=== PATIENT | male | born 1965 | race Caucasian/White ===

== ENCOUNTER 2019-07-01 16:10 | Observation (INO) | payer MEDICARE, MEDICAID ==
[~2019-07-01] VITALS: Ht 165.1 cm; Wt 107.6 kg
[2019-07-01 17:52] VITALS: BP 146/90
[2019-07-01] MEDS ORDERED: ACETAMINOPHEN TAB 650MG DOSE (2X325MG) PO PRN (21:00)
--- NOTE | 2019-07-01 21:17 | HPEPDOC ---
General Date of Admission July 01, 2019 Date of Service: Jul 01, 2019 Chief Complaint The patient is a 53-year-old male admitted with a reason for visit of Pancreatis. Source: Patient Exam Limitations: No limitations Timing/Duration: Unsure Severity: Mild Associated Symptoms: Denies Symptoms History of Present Illness This is a 53-year-old male with known chronic kidney disease that is hemodialysis requiring. He presented to an outlying facility complaining of left-sided abdominal pain. It was accompanied by episode of mild nausea. He also had an episode of loose stool. He otherwise reports that his bowel movements have been normal and without any blood. His appetite has otherwise been normal. He rates the pain about a 2-3 out of 10 and states that the pain is at times positional. Upon evaluation in his outlying facility they were concerned that he had pancreatitis with an elevated lipase of 145. CT scan obtained at the [facility] did not show any abnormalities to any organs or any inflammation. We accepted him in transfer for further evaluation. Allergies Coded Allergies: No Known Allergies (Unverified , 03/19/04) Past Medical History Medical History Past medical history is remarkable for rheumatoid arthritis, dyslipidemia, hyp ertension, chronic kidney disease stage V. That is hemodialysis requiring--he is seen by Dr. Ferreira and dialyzes on Mondays, Wednesdays and Fridays. Surgical History Surgical history includes unspecified repair to a fracture of his left arm and placement of a fistula for hemodialysis per Family History Family history is remarkable for unspecified cancer and ilg-lgstxyd-pudurtzdo diabetes mellitus. 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 A-FIB/CHADSVASC A-FIB History Current/History of A-Fib/PAF?: No Current PO Anticoag Therapy: No Review of Systems Other systems 10 systems review is otherwise negative except as stated in the brief presentation Physical Examination General Exam: Positive: Alert, No Acute Distress Eye Exam: Positive: PERRLA, Conjunctiva & lids normal, EOMI, Other Eye Symptoms (the patient wears glasses); Negative: Sclera icteric ENT Exam: Positive: Atraumatic, Mucous membr. moist/pink, Pharynx Normal, Tongue Midline, Nares Patent Neck Exam: Positive: Supple; Negative: JVD, thyromegaly Chest Exam: Positive: Clear to auscultation, Normal air movement Heart Exam: Positive: Rate Normal, Regular Rhythm, Normal S1, Normal S2; Negative: Murmurs, Rubs Abdomen Exam: Positive: Normal bowel sounds, Soft, Other (the patient has moderate central obesity, no focal tenderness is elicited even to deep palpation); Negative: Tenderness, Hepatospenomegaly Extremity Exam: Positive: Normal pulses, Other (the patient has remarkable joint deformity to his fingers and toes consistent with rheumatoid arthritis, CO: He does have ulnar deviation due to his hands and fingers); Negative: Clubbing, Cyanosis, Edema Skin Exam: Positive: Nl turgor and temperature, Other skin issue (the patient does have very poor toenail care and appears to have significant fungal infection to his toes); Negative: Breakdown, Lesion Neuro Exam: Positive: Normal Speech, Strength at 5/5 X4 ext, Normal Tone, Cranial Nerves 3-12 NL Psych Exam: Positive: Mental status NL, Mood NL, Oriented x 3 Vital Signs Vital Signs Date Time Temp Pulse Resp B/P (MAP) Pulse Ox O2 Delivery O2 Flow Rate FiO2 07/01/19 17:52 98.7 65 18 146/90 (108) 97 Assessment/Plan 1. Abdominal pain. This is quite mild. He has not required any interventions such as pain medicatio n. It is essentially resolved. CT scan obtained did not show any focal inflammation in within the abdomen. Patient has no history of diverticular disease. Aside from a slightly elevated lipase there is no evidence that this patient has pancreatitis. We will recheck labs and follow him clinically. 2. Chronic kidney disease stage V. The patient is hemodialysis requiring. We will continue him on his usual hemodialysis schedule. We anticipate we will be able to discharge him to home tomorrow after his hemodialysis. We will appreciate the assistance of the nephrology service. 3. Rheumatoid arthritis. The patient denies any significant pain or disability and he is not on a particular management regimen. The patient is placed on observation status. We have not yet identified an acute medical process and we anticipate being able to discharge this patient to home within less than 2 midnights. Plan / VTE VTE Prophylaxis Ordered?: Yes (subcutaneous) Plan Diet: Continue Current Activity: Continue Current Pt and Family Services: Home Care Diagnostics: Repeat Labs in AM Anticipated Discharge: Home Advanced Directives: Health Care Proxy (HCP) (the patient's father is his medical power of estate planning attorney. Patient is currently full CODE STATUS.) HEBERT HOOD MD Jul 01, 2019 21:17
[2019-07-01] MEDS ORDERED: RENATAB5 PO (21:53)
[2019-07-01] MEDS ORDERED: METO25TA4 PO (21:53)
[2019-07-01] MEDS ORDERED: FLOM0.4C39 PO (21:53)
[2019-07-01] MEDS ORDERED: ZOCO80TA PO (21:59)
[2019-07-01 22:00] VITALS: BP 141/81
[2019-07-01] MEDS ORDERED: LIDO2.5C15 TOP (22:00)
[2019-07-01] MEDS: TAMSULOSIN 0.4 MG CAP PO SCH (22:49)
[2019-07-01] MEDS: METOPROLOL TART 25 MG TABLET PO SCH (22:50)
[2019-07-02 06:00] VITALS: BP 125/50
[2019-07-02 06:06] LABS: HEMATOCRIT 30.5 % (42.0-52.0); HEMOGLOBIN 9.8 g/dl (13.5-17.5); MEAN CORPUSCULAR HEMOGLOBIN 30.3 pg (27.0-33.0); MEAN CORPUSCULAR HGB CONC 32.1 g/dl (32.0-36.5); MEAN CORPUSCULAR VOLUME 94.4 fl (80.0-96.0); RED BLOOD COUNT 3.23 10^6/uL (4.30-6.10); WHITE BLOOD COUNT 5.1 10^3/uL (4.0-10.0)
[2019-07-02 06:07] LABS: PLATELET COUNT, AUTOMATED 96 10^3/uL (150-450)
[2019-07-02] MEDS: METOPROLOL TART 25 MG TABLET PO SCH ×2 (06:16→20:56)
[2019-07-02] MEDS: HEPARIN SOD (PORCINE) 5000 UNITS/ML VIAL SC SCH ×3 (06:16→20:56)
[2019-07-02 06:35] LABS: ALBUMIN 3.2 GM/DL (3.2-5.2); CREATININE FOR GFR 8.12 MG/DL (0.70-1.30); GLOMERULAR FILTRATION RATE 7.4 (>56); POTASSIUM SERUM 4.5 MEQ/L (3.5-5.1); TOTAL PROTEIN 7.8 GM/DL (6.4-8.2)
[2019-07-02] MEDS: SIMVASTATIN 40 MG TAB PO SCH (08:37)
[2019-07-02] MEDS ORDERED: LIDOCAINE 1% SDV 5 ML VIAL SQ ONE (11:00)
[2019-07-02] MEDS ORDERED: HEPARIN 1,000 UNITS/ML 10ML VIAL (FOR RADIOLOGY& DIALYSIS ONLY) IV ONE (12:00)
--- NOTE | 2019-07-02 13:44 | CR ---
DATE OF CONSULTATION: 07/02/2019 NEPHROLOGY CONSULTATION FOR: Iman Stevenson MD REASON FOR CONSULTATION: To assist in the management of end-stage renal disease. HISTORY OF PRESENT ILLNESS: Mr. Qureshi is a 53-year-old gentleman with known history of end-stage renal disease, hypertension, congenital limb deformities and hyperlipidemia. He presented to the emergency room at [facility] with abdominal pain and was noticed to have elevated lipase level. A CAT scan of abdomen and pelvis was reportedly unremarkable. Patient was diagnosed with acute pancreatitis and transferred to [facility]. He is regularly receiving hemodialysis on Friday, Friday and Friday schedule. Patient is due for dialysis today, due to which nephrology consultation was requested and patient is seen this morning. PAST MEDICAL AND SURGICAL HISTORY: Significant for: 1. History of congenital deformities of all four limbs. 2. Chronic degenerative arthritis. 3. History of dyslipidemia. 4. Hypertension. 4. End-stage renal disease. Past surgical history is significant for arteriovenous (AV) fistula creation. PERSONAL AND SOCIAL HISTORY: Patient has no history of smoking, alcohol or drug use. He lives with his family. FAMILY HISTORY: Negative for end-stage renal disease. REVIEW OF SYSTEMS: Patient denies any fever or chills. Ears, nose and throat are unremarkable. He uses corrective eyeglasses for myopia. Cardiovascular system negative for dyspnea or chest pain. Respiratory system negative for cough or hemoptysis. Gastrointestinal (GI) system is significant for abdominal pain but no vomiting or diarrhea. Genitourinary () system is negative for dysuria or hematuria. Musculoskeletal system significant for congenital deformities of all four limbs. Psychosocial system is negative for depression or anxiety. Neurological system negative for seizures or stroke. Hematological system significant for anemia of chronic kidney disease. Endocrine system is negative for diabetes or thyroid problems. Skin is negative for rash or ulcers. PHYSICAL EXAMINATION: Temperature 97.9 degrees Fahrenheit, heart rate 64 per minute and respiratory rate 18 per minute. Blood pressure 125/50 mmHg and oxygen saturation 96% on room air. His head is atraumatic. Neck is supple and jugular venous distention (JVD) difficult to be assessed. Nose and throat are unremarkable. Heart exam reveals distant S1 and S2 which are regular. Lung sound clear to auscultation bilaterally. Abdomen: Soft, obese and minimally tender in left upper quadrant. Bowel sounds are normal. Extremities have no cyanosis or clubbing. Neurologically, he is at his baseline mentation. Musculoskeletal system shows congenital deformities of all four limbs. LABORATORY DATA: His WBC count is 5.1, hemoglobin 9.8 and hematocrit 30.5. Platelets 96,000. Sodium 134, potassium 4.5, CO2 26, BUN 40 and creatinine 8.12. A lipase level is 505. PROBLEMS: 1: End-stage renal disease. Patient is due for dialysis today. His electrolytes are within normal range and volume status is well-compensated. We will plan on dialyzing him this afternoon. 2. Anemia. He does have anemia of chronic kidney disease and at this point there is no emergent indication for a transfusion. We will hold off on use of Aranesp as he probably has just received the treatment in outpatient dialysis clinic. If he stays here for any extended period of time, then I will consider Aranesp. 3. Acute pancreatitis. Most likely idiopathic as patient is not on any medications that could potentially cause acute pancreatitis. Patient has end-stage renal disease and will not require intravenous fluids. I would suggest to manage his pain with analgesics as needed. He should remain on fluid restriction of 1500 mL per day. Thank you for involving me in the care of Mr. Qureshi. I will follow him along with you.
--- NOTE | 2019-07-02 15:56 | IPNPDOC ---
Text Note Date of Service The patient was seen on 07/02/19. NOTE SUBJECTIVE: Mr. Qureshi continues to have little or no abdominal pain. The patient had been transferred from an outlying facility with concerns for acute pancreatitis. The patient did have an elevated lipase, but otherwise unremarkable radiologic studies and no signs of pain on physical exam. He does have a history of end- stage renal disease that is hemodialysis requiring, and is scheduled to undergo hemodialysis today. OBJECTIVE: Please see vital signs below Physical exam: HENT: Neck is supple with no adenopathy or thyromegaly. The patient wears glasses. Cardiovascular: Regular rate and rhythm with a normal S1 and S2, no appreciable murmur. Respiratory: Clear to auscultation with good air movement. Abdomen: Patient does have significant central obesity, I do not elicit any remarkable tenderness to palpation. The patient has bowel tones all 4 quadrants. Extremities: Patient has remarkable joint changes to his hands and feet consistent with rheumatoid arthritis, he does not have joint tenderness or edema. Skin: Patient has an erythematous vesicular rash in a dermatomal distribution to his right flank. It is nontender and it does not itch. ASSESSMENT/PLAN: 1. Pancreatitis. The patient's diagnosis of pancreatitis is subclinical. The patient does not really have remarkable focal abdominal pain of any kind. He is not had any nausea, vomiting or other dietary intolerance. Lipase is elevated at 505, but the clear etiology of this is unclear as he does not have any pancreatic changes on CT. He does not appear to be on any medications that would contribute to pancreatitis. We will continue to monitor him. 2. Chronic kidney disease stage V. The patient is hemodialysis requiring. He will continue on his usual hemodialysis schedule with Dr. Ferreira. 3. Rheumatoid arthritis. The patient does not have significant pain or disability and is not on any disease modifying regimen. 4. Probable shingles. Nursing service had concern for rash to the patient's right flank. The site is dermatomal, erythematous, vesicular and does not cross the midline. This appears to be herpes zoster to the parents. Patient will be placed on a treatment regime n of valacyclovir given his underlying relative immunosuppression with his rheumatoid arthritis. Does not have pain or discomfort associated with this rash such as neuralgia. Hopeful of being able to discharge this patient to home tomorrow. VS,Fishbone, I+O VS, Fishbone, I+O Laboratory Tests 07/02/19 05:53 Red Blood Count 3.23 L, Mean Corpuscular Volume 94.4, Mean Corpuscular Hemoglobin 30.3, Mean Corpuscular Hemoglobin Concent 32.1, Red Cell Distribution Width 14.8 H, Calcium Level 9.0, Aspartate Amino Transf (AST/SGOT) 48 H, Alanine Aminotransferase (ALT/SGPT) 30, Alkaline Phosphatase 126 H, Total Bilirubin 1.0, Total Protein 7.8, Albumin 3.2 Vital Signs Date Time Temp Pulse Resp B/P (MAP) Pulse Ox O2 Delivery O2 Flow Rate FiO2 07/02/19 06:16 64 125/50 07/02/19 06:00 97.9 18 96 I&O- Last 24 Hours up to 6 AM 07/02/19 06:00 Intake Total 360 ml Output Total 300 ml Balance 60 ml HEBERT HOOD MD Jul 02, 2019 15:56
[2019-07-02] MEDS: TAMSULOSIN 0.4 MG CAP PO SCH (20:55)
[2019-07-02] MEDS ORDERED: valACYclovir HCL 500 MG TAB PO SCH (21:00)
[2019-07-02 22:00] VITALS: BP 145/75
[2019-07-03 06:00] VITALS: BP 123/63
[2019-07-03 06:39] LABS: BILIRUBIN,TOTAL 0.6 MG/DL (0.2-1.0); CALCIUM LEVEL 8.3 MG/DL (8.5-10.1); CREATININE FOR GFR 5.63 MG/DL (0.70-1.30); GLOMERULAR FILTRATION RATE 11.3 (>56); POTASSIUM SERUM 3.8 MEQ/L (3.5-5.1); TOTAL PROTEIN 7.6 GM/DL (6.4-8.2)
[2019-07-03] MEDS: HEPARIN SOD (PORCINE) 5000 UNITS/ML VIAL SC SCH ×2 (07:48→14:00)
[2019-07-03] MEDS: SIMVASTATIN 40 MG TAB PO SCH (08:20)
[2019-07-03 08:22] VITALS: BP 123/64
[2019-07-03] MEDS: METOPROLOL TART 25 MG TABLET PO SCH (08:22)
[2019-07-03 13:12] LABS: APPEARANCE, URINE CLEAR (CLEAR); BACTERIA, URINE AUTO NEGATIVE (NEGATIVE); BILIRUBIN, URINE AUTO NEGATIVE (NEGATIVE); BLOOD, URINE BLOOD 1+ (NEGATIVE); COLOR, URINE STRAW (YELLOW); GLUCOSE, URINE (UA) AUTO 1+ mg/dL (NEGATIVE); KETONE, URINE AUTO NEGATIVE (NEGATIVE); LEUKOCYTE ESTERASE, URINE AUTO NEGATIVE (NEGATIVE); NITRITE, URINE AUTO NEGATIVE (NEGATIVE); PROTEIN, URINE AUTO 2+ mg/dL (NEGATIVE); RBC, URINE AUTO 1 /HPF (0-3); SPECIFIC GRAVITY URINE AUTO 1.004 (1.002-1.035); SQUAMOUS EPITHELIAL CELL UR AU 2 /HPF (0-6); UROBILINOGEN, URINE AUTO 0.2 mg/dL (0.0-2.0); WBC, URINE AUTO 2 /HPF (0-3)
[2019-07-03 14:00] VITALS: BP 116/68
[2019-07-03] MEDS ORDERED: VALA500T5 PO (14:02)
[2019-07-03] MEDS ORDERED: DARBEPOETIN 100 MCG/0.5 ML *DIALYSIS* SYRINGE (J0882) IV SCH (14:15)
--- NOTE | 2019-07-03 16:31 | IPN ---
DATE: 07/03/2019 SUBJECTIVE: Patient was seen and examined at the bedside today morning. He was dialyzed yesterday. He tolerated the hemodialysis procedure well. He reports moderate amount of pain in the right-sided shingles rash. Abdominal pain is improving. He is afebrile and hemodynamically stable. He was started on Valcyte tablets last night. OBJECTIVE: VITAL SIGNS: Temperature is 98.7 degrees Fahrenheit, blood pressure 123/64, pulse is 70, respiratory rate of 16, saturating 95% on room air. INTAKE AND OUTPUT: Urine output recorded is 300 mL yesterday. Ultrafiltration with hemodialysis was 1 liter only. Weight in the bed scale is not available. PHYSICAL EXAMINATION: GENERAL: Patient is awake, alert, oriented times three, laying in bed in no apparent distress. HEAD AND NECK EXAM: Extraocular muscles intact. Patient is wearing glasses with very thick lenses. Mucous membranes are moist. Neck is supple. There is no jugular venous distention (JVD). CARDIOVASCULAR: S1, S2. Regular rate. No edema of the bilateral lower extremities. RESPIRATORY: Chest is clear to auscultation bilaterally. Bilateral equal air entry. No rales or rhonchi. ABDOMEN: Soft. Positive bowel sounds. Right-sided flank has shingles rash. MUSCULOSKELETAL: Patient has left forearm arteriovenous (AV) fistula with thrill and bruit and he has congenital deformities of the limbs. CENTRAL NERVOUS SYSTEM (PROTOCOL OFFICER): No focal deficit. He moves all extremities. Patient has very poor vision. PSYCHIATRIC: Normal mood and affect. LABORATORY REVIEW: Complete blood count (CBC) showed a WBC of 5.1, hemoglobin 9.8 and that is from yesterday. Basic metabolic panel (BMP) done today showed sodium 139, potassium 3.8, chloride 102, bicarbonate 31, BUN 23, creatinine is 5.6. Albumin is 3, lipase is 632. CURRENT INPATIENT MEDICATIONS: Patient's medications were all reviewed by me. He has been started on Valtrex 500 mg by mouth daily last night. No other change in the medications today as compared with yesterday. ASSESSMENT AND PLAN: 1. End-stage renal disease on hemodialysis. Patient's dialysis was done yesterday; 1 liter of fluid and was removed. Volume status is optimal. No urgent need of hemodialysis again today. Next dialysis will be done on Friday. 2. Acute pancreatitis. Patient is symptomatically getting better. He is tolerating the oral diet now. No need of IV fluid hydration. Pain is optimized. 3. Right-sided shingles rash. Patient was started on Valtrex 500 mg by mouth daily. Dose is adequate for his renal failure. 4. Hypertension with end-stage renal disease. Continue current dose of metoprolol 25 mg by mouth twice a day. 5. Anemia in end-stage renal disease. Hemoglobin is 9.8, which is slightly suboptimal. I have ordered Aranesp to be given with dialysis. If the patient stays in the hospital until Friday, he will be given Aranesp with next dialysis session.
== END 2019-07-03 16:05 | disposition home or self-care (01) ==
LOC: M MSPAV 20:58
PROVIDERS: ADMIT Internal Medicine; ATTEND Internal Medicine
DX: N18.6 End stage renal disease (principal); K85.90 Acute pancreatitis without necrosis or infection, unspecified; B02.9 Zoster without complications; I12.0 Hypertensive chronic kidney disease with stage 5 chronic kidney disease or end stage renal disease; D63.1 Anemia in chronic kidney disease; E78.49 Other hyperlipidemia; M06.9 Rheumatoid arthritis, unspecified; Z79.899 Other long term (current) drug therapy; Q74.9 Unspecified congenital malformation of limb(s)
CPT/HCPCS: 36415; 80053; 81001; 83690; 83735; 85027; 85049; 85055; 87088; 87186; G0257; G0378

== ENCOUNTER 2020-10-11 13:06 | Emergency (ER) | payer MEDICARE, MEDICAID ==
[~2020-10-11 13:06] MED LIST: FLOM0.4C39 PO; LIDO2.5C15 TOP; METO25TA4 PO; RENATAB5 PO; VALA500T5 PO; ZOCO80TA PO
[2020-10-11 13:56] LABS: BASO # 0.1 10^3/uL (0.0-0.2); BASO % 0.7 % (0.0-1.0); EOS # 0.3 10^3/uL (0.0-0.5); EOS % 4.6 % (0.0-3.0); HEMATOCRIT 33.9 % (42.0-52.0); HEMOGLOBIN 10.8 g/dl (13.5-17.5); LYMPH # 1.4 10^3/uL (1.5-5.0); LYMPH % 20.5 % (24.0-44.0); MEAN CORPUSCULAR HEMOGLOBIN 30.3 pg (27.0-33.0); MEAN CORPUSCULAR HGB CONC 31.9 g/dl (32.0-36.5); MEAN CORPUSCULAR VOLUME 95.2 fl (80.0-96.0); MONO % 14.4 % (0.0-5.0); NEUTROPHILS # 4.1 10^3/uL (1.5-8.5); NEUTROPHILS % 59.2 % (36.0-66.0); PLATELET COUNT, AUTOMATED 129 10^3/uL (150-450); RED BLOOD COUNT 3.56 10^6/uL (4.30-6.10); WHITE BLOOD COUNT 6.9 10^3/uL (4.0-10.0)
[2020-10-11 14:08] LABS: INR 1.03; PROTHROMBIN TIME 13.7 SECONDS (12.5-14.3)
[2020-10-11 14:24] LABS: ALBUMIN 3.8 GM/DL (3.2-5.2); BILIRUBIN,DIRECT 0.1 MG/DL (0.0-0.2); BILIRUBIN,TOTAL 0.4 MG/DL (0.2-1.0); CALCIUM LEVEL 9.3 MG/DL (8.5-10.1); CREATININE FOR GFR 9.39 MG/DL (0.70-1.30); GLOMERULAR FILTRATION RATE 6.2 (>56); POTASSIUM SERUM 5.6 MEQ/L (3.5-5.1); TOTAL PROTEIN 7.4 GM/DL (6.4-8.2)
[2020-10-11 15:15] VITALS: BP 145/73
== END 2020-10-11 15:25 | disposition home or self-care (01) ==
LOC: EDBD 13:06 → M ED 13:06
DX: K62.5 Hemorrhage of anus and rectum (principal); I12.0 Hypertensive chronic kidney disease with stage 5 chronic kidney disease or end stage renal disease; N18.6 End stage renal disease; Z99.2 Dependence on renal dialysis; M19.90 Unspecified osteoarthritis, unspecified site; E78.5 Hyperlipidemia, unspecified; Z79.899 Other long term (current) drug therapy

== ENCOUNTER 2020-10-23 16:26 | Inpatient (IN) | payer MEDICARE, MEDICAID ==
[~2020-10-23] VITALS: Ht 162.6 cm; Wt 105.2 kg
--- OUTSIDE RECORDS SUMMARY | 2020-10-23 16:30 | CCD ---
Author Author [facility] Organization [facility] Address Unknown Phone Unavailable Support Name Relationship Address Phone RE Next Of Kin Unknown Unavailable PRODUCTION [place]LIM[place] [address] CHRISTINE GEORGEAMINATA Next Of Kin [address] [place] [address] EMMA CARLTON Next Of Kin [address] [address] Olinda KENNY Next Of Kin [address] [address] Re-disclosure Warning The records that you are about to access may contain information from federally-assisted alcohol or drug abuse programs. If such information is present, then the following federally mandated warning applies: This information has been disclosed to you from records protected by federal confidentiality rules (42 CFR part 2). The federal rules prohibit you from making any further disclosure of this information unless further disclosure is expressly permitted by the written consent of the person to whom it pertains or as otherwise permitted by 42 CFR part 2. A general authorization for the release of medical or other information is NOT sufficient for this purpose. The Federal rules restrict any use of the information to criminally investigate or prosecute any alcohol or drug abuse patient.The records that you are about to access may contain highly sensitive health information, the redisclosure of which is protected by Article 27-F of the [facility] Public Health law. If you continue you may have access to information: Regarding HIV / AIDS; Provided by facilities licensed or operated by the [facility] Office of Mental Health; or Provided by the [facility] Office for People With Developmental Disabilities. If such information is present, then the following [facility] mandated warning applies: This information has been disclosed to you from confidential records which are protected by state law. State law prohibits you from making any further disclosure of this information without the specific written consent of the person to whom it pertains, or as otherwise permitted by law. Any unauthorized further disclosure in violation of state law may result in a fine or nursing home sentence or both. A general authorization for the release of medical or other information is NOT sufficient authorization for further disc losure. Family History Family Member Name Family Member Gender Family Member Status Date o f Status Description Data Source(s) Unknown Male Problem [facility] ([facility]) Medications Medication Brand Name Start Date Product Form Dose Route Admi nistrative Instructions Pharmacy Instructions Status Indications Reaction Description Data Source(s) 100 mg 10/12/2020 12:00:00 AM EST capsule 180 TAKE ONE CAPSULE BY MOUTH TWICE A DAY TAKE ONE CAPSULE BY MOUTH TWICE A DAY SOLD: 10/12/2020 [facility] 25 mg 10/04/2020 12:00:00 AM EST tablet 60 TAKE ONE TABLET BY MOUTH TWICE A DAY TAKE ONE TABLET BY MOUTH TWICE A DAY SOLD: 10/06/2020 [facility] 0.4 mg 09/06/2020 12:00:00 AM EST capsule 30 TAKE ONE CAPSULE BY MOUTH EVERY DAY AT BEDTIME TAKE ONE CAPSULE BY MOUTH EVERY DAY AT BEDTIME SOLD: 021 [facility] 80 mg 09/06/2020 12:00:00 AM EST tablet 30 TAKE ONE TABLET BY MOUTH EVERY DAY TAKE ONE TABLET BY MOUTH EVERY DAY SOLD: 10/06/2020 [facility] 80 mg 09/06/2020 12:00:00 AM EST tablet 30 TAKE ONE TABLET BY MOUTH EVERY DAY TAKE ONE TABLET BY MOUTH EVERY DAY SOLD: 09/08/2020 [facility] 0.4 mg 09/06/2020 12:00:00 AM EST capsule 30 TAKE ONE CAPSULE BY MOUTH EVERY DAY AT BEDTIME TAKE ONE CAPSULE BY MOUTH EVERY DAY AT BEDTIME SOLD: 020 [facility] 0.8 mg 07/09/2020 12:00:00 AM EDT tablet 30 TAKE ONE TABLET BY MOUTH EVERY DAY TAKE ONE TABLET BY MOUTH EVERY DAY SOLD: 08/11/2020 [facility] 0.8 mg 07/09/2020 12:00:00 AM EDT tablet 30 TAKE ONE TABLET BY MOUTH EVERY DAY TAKE ONE TABLET BY MOUTH EVERY DAY SOLD: 09/08/2020 [facility] 0.8 mg 07/09/2020 12:00:00 AM EDT tablet 30 TAKE ONE TABLET BY MOUTH EVERY DAY TAKE ONE TABLET BY MOUTH EVERY DAY SOLD: 07/11/2020 [facility] 0.8 mg 07/09/2020 12:00:00 AM EDT tablet 30 TAKE ONE TABLET BY MOUTH EVERY DAY TAKE ONE TABLET BY MOUTH EVERY DAY SOLD: 10/06/2020 [facility] 25 mg 04/10/2020 12:00:00 AM EDT tablet 60 TAKE ONE TABLET BY MOUTH TWICE A DAY TAKE ONE TABLET BY MOUTH TWICE A DAY SOLD: 05/13/2020 [facility] 25 mg 04/10/2020 12:00:00 AM EDT tablet 60 TAKE ONE TABLET BY MOUTH TWICE A DAY TAKE ONE TABLET BY MOUTH TWICE A DAY SOLD: 07/11/2020 [facility] 25 mg 04/10/2020 12:00:00 AM EDT tablet 60 TAKE ONE TABLET BY MOUTH TWICE A DAY TAKE ONE TABLET BY MOUTH TWICE A DAY SOLD: 09/08/2020 [facility] 25 mg 04/10/2020 12:00:00 AM EDT tablet 60 TAKE ONE TABLET BY MOUTH TWICE A DAY TAKE ONE TABLET BY MOUTH TWICE A DAY SOLD: 06/12/2020 [facility] 25 mg 04/10/2020 12:00:00 AM EDT tablet 60 TAKE ONE TABLET BY MOUTH TWICE A DAY TAKE ONE TABLET BY MOUTH TWICE A DAY SOLD: 04/13/2020 [facility] 25 mg 04/10/2020 12:00:00 AM EDT tablet 60 TAKE ONE TABLET BY MOUTH TWICE A DAY TAKE ONE TABLET BY MOUTH TWICE A DAY SOLD: 08/11/2020 [facility] 0.4 mg 03/13/2020 12:00:00 AM EDT capsule 90 TAKE ONE CAPSULE BY MOUTH EVERY DAY AT BEDTIME TAKE ONE CAPSULE BY MOUTH EVERY DAY AT BEDTIME SOLD: 020 [facility] 80 mg 03/13/2020 12:00:00 AM EDT tablet 30 TAKE ONE TABLET BY MOUTH EVERY DAY TAKE ONE TABLET BY MOUTH EVERY DAY SOLD: 07/11/2020 [facility] 80 mg 03/13/2020 12:00:00 AM EDT tablet 30 TAKE ONE TABLET BY MOUTH EVERY DAY TAKE ONE TABLET BY MOUTH EVERY DAY SOLD: 08/11/2020 [facility] 0.4 mg 03/13/2020 12:00:00 AM EDT capsule 30 TAKE ONE CAPSULE BY MOUTH EVERY DAY AT BEDTIME TAKE ONE CAPSULE BY MOUTH EVERY DAY AT BEDTIME SOLD: 020 [facility] 0.4 mg 03/13/2020 12:00:00 AM EDT capsule 30 TAKE ONE CAPSULE BY MOUTH EVERY DAY AT BEDTIME TAKE ONE CAPSULE BY MOUTH EVERY DAY AT BEDTIME SOLD: 020 [facility] 80 mg 03/13/2020 12:00:00 AM EDT tablet 90 TAKE ONE TABLET BY MOUTH EVERY DAY TAKE ONE TABLET BY MOUTH EVERY DAY SOLD: 03/15/2020 [facility] 80 mg 03/13/2020 12:00:00 AM EDT tablet 30 TAKE ONE TABLET BY MOUTH EVERY DAY TAKE ONE TABLET BY MOUTH EVERY DAY SOLD: 06/12/2020 [facility] 0.4 mg 03/13/2020 12:00:00 AM EDT capsule 30 TAKE ONE CAPSULE BY MOUTH EVERY DAY AT BEDTIME TAKE ONE CAPSULE BY MOUTH EVERY DAY AT BEDTIME SOLD: 020 [facility] 0.8 mg 01/14/2020 12:00:00 AM EDT tablet 30 TAKE ONE TABLET BY MOUTH EVERY DAY TAKE ONE TABLET BY MOUTH EVERY DAY SOLD: 03/15/2020 [facility] 0.8 mg 01/14/2020 12:00:00 AM EDT tablet 30 TAKE ONE TABLET BY MOUTH EVERY DAY TAKE ONE TABLET BY MOUTH EVERY DAY SOLD: 04/13/2020 [facility] 0.8 mg 01/14/2020 12:00:00 AM EDT tablet 30 TAKE ONE TABLET BY MOUTH EVERY DAY TAKE ONE TABLET BY MOUTH EVERY DAY SOLD: 05/13/2020 [facility] 0.8 mg 01/14/2020 12:00:00 AM EDT tablet 30 TAKE ONE TABLET BY MOUTH EVERY DAY TAKE ONE TABLET BY MOUTH EVERY DAY SOLD: 01/16/2020 [facility] 0.8 mg 01/14/2020 12:00:00 AM EDT tablet 30 TAKE ONE TABLET BY MOUTH EVERY DAY TAKE ONE TABLET BY MOUTH EVERY DAY SOLD: 02/16/2020 [facility] 0.8 mg 01/14/2020 12:00:00 AM EDT tablet 30 TAKE ONE TABLET BY MOUTH EVERY DAY TAKE ONE TABLET BY MOUTH EVERY DAY SOLD: 06/12/2020 [facility] 25 mg 10/18/2019 12:00:00 AM EST tablet 60 TAKE ONE TABLET BY MOUTH TWICE A DAY TAKE ONE TABLET BY MOUTH TWICE A DAY SOLD: 10/19/2019 [facility] 25 mg 10/18/2019 12:00:00 AM EST tablet 60 TAKE ONE TABLET BY MOUTH TWICE A DAY TAKE ONE TABLET BY MOUTH TWICE A DAY SOLD: 03/15/2020 [facility] 25 mg 10/18/2019 12:00:00 AM EST tablet 60 TAKE ONE TABLET BY MOUTH TWICE A DAY TAKE ONE TABLET BY MOUTH TWICE A DAY SOLD: 02/16/2020 [facility] 25 mg 10/18/2019 12:00:00 AM EST tablet 60 TAKE ONE TABLET BY MOUTH TWICE A DAY TAKE ONE TABLET BY MOUTH TWICE A DAY SOLD: 11/21/2019 [facility] 25 mg 10/18/2019 12:00:00 AM EST tablet 60 TAKE ONE TABLET BY MOUTH TWICE A DAY TAKE ONE TABLET BY MOUTH TWICE A DAY SOLD: 01/16/2020 [facility] 25 mg 10/18/2019 12:00:00 AM EST tablet 60 TAKE ONE TABLET BY MOUTH TWICE A DAY TAKE ONE TABLET BY MOUTH TWICE A DAY SOLD: 12/21/2019 [facility] 15-20 gram/60 mL 10/14/2019 12:00:00 AM EST suspension 60 TAKE 60ML BY MOUTH ONCE TAKE 60ML BY MOUTH ONCE SOLD: 10/15/2019 [facility] 80 mg 09/17/2019 12:00:00 AM EST tablet 30 TAKE ONE TABLET BY MOUTH EVERY DAY TAKE ONE TABLET BY MOUTH EVERY DAY SOLD: 10/19/2019 [facility] 0.4 mg 09/17/2019 12:00:00 AM EST capsule 30 TAKE ONE CAPSULE BY MOUTH AT BEDTIME TAKE ONE CAPSULE BY MOUTH AT BEDTIME SOLD: 12/21/2019 [facility] 80 mg 09/17/2019 12:00:00 AM EST tablet 30 TAKE ONE TABLET BY MOUTH EVERY DAY TAKE ONE TABLET BY MOUTH EVERY DAY SOLD: 11/21/2019 [facility] 0.4 mg 09/17/2019 12:00:00 AM EST capsule 30 TAKE ONE CAPSULE BY MOUTH AT BEDTIME TAKE ONE CAPSULE BY MOUTH AT BEDTIME SOLD: 11/21/2019 [facility] 80 mg 09/17/2019 12:00:00 AM EST tablet 30 TAKE ONE TABLET BY MOUTH EVERY DAY TAKE ONE TABLET BY MOUTH EVERY DAY SOLD: 02/16/2020 [facility] 0.4 mg 09/17/2019 12:00:00 AM EST capsule 30 TAKE ONE CAPSULE BY MOUTH AT BEDTIME TAKE ONE CAPSULE BY MOUTH AT BEDTIME SOLD: 09/21/2019 [facility] 0.4 mg 09/17/2019 12:00:00 AM EST capsule 30 TAKE ONE CAPSULE BY MOUTH AT BEDTIME TAKE ONE CAPSULE BY MOUTH AT BEDTIME SOLD: 10/19/2019 [facility] 80 mg 09/17/2019 12:00:00 AM EST tablet 30 TAKE ONE TABLET BY MOUTH EVERY DAY TAKE ONE TABLET BY MOUTH EVERY DAY SOLD: 01/16/2020 [facility] 0.4 mg 09/17/2019 12:00:00 AM EST capsule 30 TAKE ONE CAPSULE BY MOUTH AT BEDTIME TAKE ONE CAPSULE BY MOUTH AT BEDTIME SOLD: 01/16/2020 [facility] 80 mg 09/17/2019 12:00:00 AM EST tablet 30 TAKE ONE TABLET BY MOUTH EVERY DAY TAKE ONE TABLET BY MOUTH EVERY DAY SOLD: 09/21/2019 [facility] 80 mg 09/17/2019 12:00:00 AM EST tablet 30 TAKE ONE TABLET BY MOUTH EVERY DAY TAKE ONE TABLET BY MOUTH EVERY DAY SOLD: 12/21/2019 [facility] 0.4 mg 09/17/2019 12:00:00 AM EST capsule 30 TAKE ONE CAPSULE BY MOUTH AT BEDTIME TAKE ONE CAPSULE BY MOUTH AT BEDTIME SOLD: 02/16/2020 [facility] 0.8 mg 07/20/2019 12:00:00 AM EDT tablet 30 TAKE ONE TABLET BY MOUTH EVERY DAY TAKE ONE TABLET BY MOUTH EVERY DAY SOLD: 12/21/2019 [facility] 0.8 mg 07/20/2019 12:00:00 AM EDT tablet 30 TAKE ONE TABLET BY MOUTH EVERY DAY TAKE ONE TABLET BY MOUTH EVERY DAY SOLD: 10/19/2019 [facility] 0.8 mg 07/20/2019 12:00:00 AM EDT tablet 30 TAKE ONE TABLET BY MOUTH EVERY DAY TAKE ONE TABLET BY MOUTH EVERY DAY SOLD: 11/21/2019 [facility] 0.8 mg 07/20/2019 12:00:00 AM EDT tablet 30 TAKE ONE TABLET BY MOUTH EVERY DAY TAKE ONE TABLET BY MOUTH EVERY DAY SOLD: 09/21/2019 [facility] 25 mg 04/23/2019 12:00:00 AM EDT tablet 60 TAKE ONE TABLET BY MOUTH TWICE A DAY TAKE ONE TABLET BY MOUTH TWICE A DAY SOLD: 09/21/2019 [facility] Insurance Providers Payer name Policy type / Coverage type Policy ID Covered libertarian ID Covered libertarian's relationship to marina Policy Marina Plan Information [employer] [id number] SP [id number] MEDICARE [id number] SP [id number] MEDICAID [id number] SP [id number] MEDICAID - O/P EMERGENCY ROOM [id number] 18 [id number] MEDICARE PART A-O/P [id number] 18 [id number] MEDICARE [id number] SP [id number] A MEDICAID M [id number] S [id number] MEDICARE C [id number] S [id number] A MEDICAID [id number] SP [id number] [place] Medig[place] Part B [id number] Self [id number] Medicare Dme Supplies Medigap Part B [id number] Self [id number] [place] [id number] Self [id number] OTHER B TRANSPLANT Self TRANSPLAN T MEDICAID M [id number] Self [id number] MEDICARE A [id number] Self [id number] A MEDICAID-O/P [id number] MEDICARE -O/P [id number] 18 [id number] [place] 3 [id number] MEDICARE 4 [id number] A SELF PAY 2 UNAVAILABLE 1 UNAVAILA BLE MEDICAID - O/P EMERGENCY ROOM [id number]
[2020-10-23 17:21] LABS: BASO # 0.1 10^3/uL (0.0-0.2); BASO % 0.6 % (0.0-1.0); EOS # 0.4 10^3/uL (0.0-0.5); EOS % 4.7 % (0.0-3.0); HEMATOCRIT 32.7 % (42.0-52.0); HEMOGLOBIN 10.1 g/dl (13.5-17.5); LYMPH # 2.1 10^3/uL (1.5-5.0); LYMPH % 25.2 % (24.0-44.0); MEAN CORPUSCULAR HEMOGLOBIN 28.9 pg (27.0-33.0); MEAN CORPUSCULAR HGB CONC 30.9 g/dl (32.0-36.5); MEAN CORPUSCULAR VOLUME 93.7 fl (80.0-96.0); MONO # 0.9 10^3/uL (0.0-0.8); MONO % 11.4 % (0.0-5.0); NEUTROPHILS # 4.7 10^3/uL (1.5-8.5); NEUTROPHILS % 57.4 % (36.0-66.0); PLATELET COUNT, AUTOMATED 146 10^3/uL (150-450); RED BLOOD COUNT 3.49 10^6/uL (4.30-6.10); WHITE BLOOD COUNT 8.2 10^3/uL (4.0-10.0)
[2020-10-23 17:48] LABS: BLOOD UREA NITROGEN 58 MG/DL (7-18); CALCIUM LEVEL 9.4 MG/DL (8.5-10.1); CARBON DIOXIDE LEVEL 25 MEQ/L (21-32); CHLORIDE LEVEL 101 MEQ/L (98-107); GLOMERULAR FILTRATION RATE 5.5 (>56); GLUCOSE, FASTING 88 MG/DL (70-100); POTASSIUM SERUM 5.3 MEQ/L (3.5-5.1); SODIUM LEVEL 136 MEQ/L (136-145)
--- NOTE | 2020-10-23 17:51 | REPVR ---
PROCEDURE INFORMATION: Exam: CT Abdomen And Pelvis Without Contrast Exam date and time: 10/23/2020 5:10 PM Age: 55 years old Clinical indication: Other: Lower gi bleed; Additional info: Lgi bleed, R/O diverticular TECHNIQUE: Imaging protocol: Computed tomography of the abdomen and pelvis without contrast. Radiation optimization: All CT scans at this facility use at least one of these dose optimization techniques: automated exposure control; mA and/or kV adjustment per patient size (includes targeted exams where dose is matched to clinical indication); or iterative reconstruction. COMPARISON: BLADDER (LIMITED PELVIC) US 12/13/2014 9:00 AM FINDINGS: Lungs: No suspicious mass or airspace process in the visualized lung bases. Liver: Noncontrast liver shows no obvious lesion. Gallbladder and bile ducts: Gallbladder is present and shows no evidence of gallstone. Pancreas: Noncontrast pancreas shows no obvious mass or adjacent fluid. Spleen: Noncontrast spleen shows no obvious focal deformity. Adrenal glands: Adrenal glands are normal in appearance. Kidneys and ureters: Kidneys appear atrophic and contain probable cysts, incompletely imaged. Nonobstructive left renal calculi are also suspected. Stomach and bowel: No evidence of small bowel obstruction. No evidence of acute diverticulitis. Appendix: Normal caliber appendix is identified, with no adjacent inflammation. Intraperitoneal space: No pneumoperitoneum. Vasculature: No aortic aneurysm. Lymph nodes: No enlarged lymph nodes. Urinary bladder: Bladder is decompressed and appears somewhat thick-walled which may be secondary to chronic intermittent bladder outlet obstruction. Reproductive: No overt enlargement of the prostate gland. Bones/joints: Degenerative changes are present in the hips and lumbar spine and old posttraumatic deformities of lower ribs are present. Diffuse idiopathic skeletal hyperostosis changes are present in the thoracolumbar spine with multilevel degenerative spinal canal stenosis. Soft tissues: Fat containing umbilical hernia is present. Midline surgical incision with scarring but no dehiscence or fluid collection. Pelvic muscle atrophy and dystrophic ossification bilaterally, incidental. Other findings: Limited evaluation without enteric or IV contrast. IMPRESSION: 1. No evidence of acute diverticulitis with scattered colonic diverticula noted. 2. Probable chronic bladder wall thickening which may be secondary to intermittent bladder outlet obstruction, given the appearance of the prior ultrasound. 3. Nonobstructive left renal calculi and probable bilateral renal cysts difficult to assess. Outpatient sonography could be performed to confirm that the renal lesions are indeed simple fluid density cysts. COMMENTS: Consistent with the [employer]'s Incidental Findings Committee white paper (J Am Ricardo Radiol 2018): Any incidental renal lesion less than 1 cm or classified as too small to characterize, or any incidental cystic renal lesion characterized as simple-appearing, is likely benign. No follow-up imaging is recommended for these lesions per consensus recommendations based on imaging criteria. Electronically signed by: David Roche On 10/23/2020 17:51:07 PM
--- OUTSIDE RECORDS SUMMARY | 2020-10-23 18:12 | CCD ---
Author Author [facility] Organization [facility] Address Unknown Phone Unavailable Support Name Relationship Address Phone RE Next Of Kin Unknown Unavailable PRODUCTION [place] [address] CHRISTINE GEORGEAMINATA Next Of Kin [address] [place] [address] EMMA CARLTON Next Of Kin [address] [address] Olinda KENNY Next Of Kin [address] [address] Re-disclosure Warning The records that you are [...] by Article 27-F of the [facility] Public Health law. If you continue you may have access to information: Regarding HIV / AIDS; Provided by facilities licensed or operated by the [facility] Office of Mental Health; or Provided by the [facility] Office for People With Developmental Disabilities. If such information is present, then the following [facility] mandated warning applies: This information has [...] BY MOUTH TWICE A DAY SOLD: 02/16/2020 [facility] 25 mg 10/18/2019 12:00:00 AM EST [...] type / Coverage type Policy ID Covered democrat ID Covered democrat's relationship to marina Policy Marina Plan Information [employer]ODY [id number] SP [id number] MEDICARE [id number] SP [id number] MEDICAID [id number] SP [id number] MEDICAID - O/P EMERGENCY ROOM [id number] 18 [id number] MEDICARE PART A-O/P [id number] 18 [id number] MEDICARE [id number] SP [id number] A MEDICAID M [id number] S [id number] MEDICARE C [id number] S [id number] A MEDICAID [id number] SP [id number] [place] Medig[place] Part B [id number] Self [id number] Medicare Dme Supplies Medigap Part B [id number] Self [id number] [place] Primary [id number] Self [id number] OTHER B TRANSPLANT Self TRANSPLAN T MEDICAID M [id number] Self [id number] MEDICARE A [id number] Self [id number] A MEDICAID-O/P [id number] MEDICARE -O/P [id number] 18 [id number] [place] 3 [id number] MEDICARE 4 [id number] A SELF PAY 2 UNAVAILABLE 1 UNAVAILA BLE MEDICAID - O/P EMERGENCY ROOM [id number]
--- NOTE | 2020-10-23 18:42 | REP ---
INDICATION: admission. COMPARISON: None. TECHNIQUE: SINGLE PORTABLE AP VIEW OF THE CHEST WAS PERFORMED. FINDINGS: The heart appears slightly enlarged. There is no acute infiltrate. The mediastinal silhouette is unremarkable. IMPRESSION: NO ACUTE PULMONARY DISEASE. <Electronically signed by Raymundo Falcon > 10/23/20 [id number]
[2020-10-23 19:26] LABS: RSV AMPLIFICATION NEGATIVE (NEGATIVE)
[2020-10-23] MEDS ORDERED: DOK1CAP7 PO (19:27)
--- NOTE | 2020-10-23 19:28 | IPNPDOC ---
Text Note Date of Service The patient was seen on 10/23/20. NOTE Time of service 8:49 PM Mr. Qureshi is a 55 year old with a history of ESRD, obesity, RA and HTN who sent from dialysis after having an episode of hematochezia; he has been having lower GI bleed for about the last 5 months. He denied having abdominal pain, nausea, vomiting, dizziness, chest pain or dyspnea. Unfortunately, his dialysis had to be postponed. He'll be admitted for evaluation & management of #lower GI bleed possibly 2/2 AVMs #acute blood loss anemia #thrombocytopenia Plan: ask RNs to place 2 large bore IVs/ check orthostas/ f/u serial Hg & keep Hg >7 / f/u retic #, iron studies with soluble transferrin receptor (sTfR) which is a more sensitive indicator for iron deficiency, stool occult, LDH, haptoglobin, consult Nephrology and GI. Rest per Dr. Bonds's H&P VS,Fishbone, I+O VS, Lalobone, I+O Laboratory Tests 10/23/20 16:53 Vital Signs Date Time Temp Pulse Resp B/P (MAP) Pulse Ox O2 Delivery O2 Flow Rate FiO2 10/23/20 16:58 97.7 80 17 160/81 (107) 96 Room Air JENNY BALLESTEROS MD Oct 23, 2020 19:28
--- OUTSIDE RECORDS SUMMARY | 2020-10-23 19:34 | CCD ---
Author Author [facility] Organization [facility] Address Unknown Phone Unavailable Support Name Relationship Address Phone RE Next Of Kin Unknown Unavailable PRODUCTION [employer] [place] [address] CHRISTINE GEORGEAMINATA Next Of Kin [address] [place] [address] EMMA CARLTON Next Of Kin [address] [address] Olinda KENNY Next Of Kin [address] [address] Re-disclosure Warning The records that you are [...] is protected by Article 27-F of the [facility] Public Health law. If you continue you may have access to information: Regarding HIV / AIDS; Provided by facilities licensed or operated by the [facility] Office of Mental Health; or Provided by the [facility] Office for People With Developmental Disabilities. If such information is present, then the following [facility] mandated warning applies: This information has been [...] law may result in a fine or half-way sentence or both. A general authorization for [...] type / Coverage type Policy ID Covered alliance party ID Covered alliance party's relationship to marina Policy Marina Plan Information CHAYA[employer]KODY [id number] SP [id number] MEDICARE [id number] SP [id number] MEDICAID [id number] SP [id number] MEDICAID - O/P EMERGENCY ROOM [id number] 18 [id number] MEDICARE PART A-O/P [id number] 18 [id number] MEDICARE [id number] SP [id number] A MEDICAID M [id number] S [id number] MEDICARE C [id number] S [id number] A MEDICAID [id number] SP [id number] Medicaid [place] Medig[place] Part B [id number] Self [id number] Medicare Dme Supplies Medigap Part B [id number] Self [id number] [place] Primary [id number] Self [id number] OTHER B TRANSPLANT Self TRANSPLAN T MEDICAID M [id number] Self [id number] MEDICARE A [id number] Self [id number] A MEDICAID-O/P [id number] 18 [id number] MEDICARE -O/P [id number] 18 [id number] [place] 3 [id number] Q MEDICARE 4 [id number] A SELF PAY 2 UNAVAILABLE 1 UNAVAILA BLE MEDICAID - O/P EMERGENCY ROOM [id number]
[2020-10-23] MEDS ORDERED: D5W/0.45% SODIUM CHLORIDE 1,000 ML IV SCH (20:15)
[2020-10-23] MEDS ORDERED: EMLA CREAM 5GM TUBE (LIDOCAINE/PRILOCAINE) TOP SCH (20:15)
[2020-10-23] MEDS ORDERED: GLUCAGON INJ 1MG VIAL SC PRN (20:15)
[2020-10-23] MEDS ORDERED: DEXTROSE 50% 50 ML SYRINGE IV PRN (20:15)
[2020-10-23] MEDS ORDERED: GLUCOSE 4GM CHEW TABLET PO PRN (20:15)
[2020-10-23 20:47] LABS: FERRITIN 855 NG/ML (26-388); IRON (FE) 58 UG/DL (65-175); PERCENT SATURATION 21.7 % (19.7-50.0); TOTAL IRON BINDING CAPACITY 267 UG/DL (250-450)
--- NOTE | 2020-10-23 21:05 | ECGEPIP ---
[facility] - ED Test Date: 2020-10-23 Pat Name: AMINATA KING Department: Room: - Gender: Male Team Primary Care Physician: : [id number] Requested By: Renato Nance Order Number: [id number] Reading MD: Renato Nance Measurements Intervals [place] Rate: 74 P: 34 ID: [id number] QRS: 5 QRSD: 97 T: 16 QT: 378 QTc: 420 Interpretive Statements SINUS RHYTHM POSSIBLE ANTERIOR MYOCARDIAL INFARCTION, OF INDETERMINATE AGE NONSPECIFIC T WAVE ABNORMALITY(S) NO PRIORS FOR COMPARISON Electronically Signed on 10-23-2020 21:05:06 EST by Renato Nance
[2020-10-23 21:32] VITALS: BP 137/67
[2020-10-23 22:02] LABS: HEMATOCRIT 31.8 % (42.0-52.0); HEMOGLOBIN 9.6 g/dl (13.5-17.5)
[2020-10-23] MEDS: METOPROLOL TART 25 MG TABLET PO SCH (22:41)
[2020-10-23] MEDS: SIMVASTATIN 40 MG TAB PO SCH (22:41)
[2020-10-23] MEDS: PANTOPRAZOLE 40MG VIAL (C9113 PER 1) IV SCH (22:41)
[2020-10-23] MEDS: TAMSULOSIN 0.4 MG CAP PO SCH (22:42)
[2020-10-24] VITALS: BP 120/70
--- NOTE | 2020-10-24 00:12 | HPEPDOC ---
[facility] Medical History & Physical Date of Admission Oct 23, 2020 Date of Service: Oct 23, 2020 Attending Physician: JENNY BALLESTEROS MD History and Physical CHIEF COMPLAINT: Bloody stool HISTORY OF PRESENT ILLNESS: Patient is a 55-year-old male with a past medical history significant for congenital deformities of all 4 limbs, chronic degenerative arthritis/rheumatoid arthritis, dyslipidemia, hypertension and end- stage renal disease on hemodialysis who presented to the [facility] emergency department after having an episode of bloody stool at dialysis. Patient stated that he was at dialysis when he had an episode of right red blood per rectum. Patient stated he did not start dialysis and was sent emergency department. He states that he has had on and off bleeding for approximately 2-3 months. Additionally, the patient admits to dark tarry stools at times as well as noticing bright red blood in the toilet bowl as well. He states that he has been told before that he has hemorrhoids. Patient states he has never had a colonoscopy in the past. Patient denies any further bloody episodes since presenting to the emergency department. He denies any short of breath, chest pain. He denies any lightheadedness. In the emergency department the patient was vitally stable. His hemoglobin was 10.1, which is close to his baseline. He received CT imaging of his abdomen and pelvis which demonstrated no evidence of acute diverticulitis, however, scattered colonic diverticula. There was chronic bilateral thickening and nonobstructive left renal calculi and bilateral renal cysts. Hospitalist service was consulted and the patient was admitted for further evaluation and management of his lower GI bleed. PAST MEDICAL HISTORY: 1. Congenital deformities of all 4 limbs. 2. Chronic degenerative arthritis/rheumatoid arthritis. 3. Dyslipidemia. 4. Hypertension 5. End-stage renal disease on hemodialysis Friday, Friday, Friday. 6. Diabetes mellitus type 2. 7. History of idiopathic pancreatitis. 8. Anemia of renal disease PAST SURGICAL HISTORY: 1. Multiple feet surgeries secondary to his congenital deformities. 2. Left arm AV fistula creation. 3. Cataracts bilaterally. 4. Left ureterotomy, and insertion of left ureteral J stent SOCIAL HISTORY: Patient currently lives at home with his father. He is independent with most of his ADLs. He states that he does not cook. He does not use alcohol. He is a nonsmoker. Denies any IV or illicit drugs. Denies any sick contacts. FAMILY HISTORY: Patient's father has prostate cancer. His mother from stomach cancer. He has 2 brothers and 4 sisters. He is on sure of any medical conditions in his brothers or sisters. ALLERGIES: Please see below. REVIEW OF SYSTEMS: CONSTITUTIONAL: Denies fevers, chills. Denies unintentional weight loss or weight gain. Denies night sweats. HEENT:. Denies dysphagia or odynophagia. Denies headache, denies change in vision. CARDIOVASCULAR:. Denies chest pain, palpitations or feelings of the heart racing. RESPIRATORY: Denies shortness of breath Denies wheezing or cough. GASTROINTESTINAL:. Denies abdominal pain. Denies nausea, vomiting, diarrhea, constipation. Admits to bloody stool and red blood per rectum. GENITOURINARY: Dysuria or increased frequency. SKIN: Denies any rashes or lesions. MUSCULOSKELETAL:. Denies any muscle pain. Denies any back pain. NEUROLOGICAL:. Denies changes in gait from baseline. Denies changes in speech PSYCHIATRIC:. Denies depression or anxiety. ENDOCRINE:. Denies heat intolerance or cold intolerance. Denies history of diabetes mellitus type 2. HEMATOLOGIC/LYMPHATIC: Denies easy bruising or bleeding. denies history of DVT or pulmonary embolism. HOME MEDICATIONS: Please see below. PHYSICAL EXAMINATION: VITAL SIGNS: Temperature 97.7, pulse 80, respiratory rate 17, blood pressure 160/81, pulse oximetry, 96 % on room air. GENERAL APPEARANCE:. Patient is awake, alert, oriented. He does not appear in acute distress. He is lying comfortably in stretcher. HEENT:, Atraumatic. Normocephalic. Eyes nonicteric. Trachea is midline. Mucous membranes are pink and moist. CARDIOVASCULAR:. Normal S1, S2, regular rate and rhythm. No clicks rubs or murmurs auscultated. LUNGS:. Clear vesicular breath sounds bilaterally. Good respiratory effort. No wheezes rhonchi or rales. ABDOMEN:. Soft nondistended, obese, nontender, no rebound tenderness or guarding. No palpable masses. Normoactive bowel sounds throughout EXTREMITIES: No edema. Full and equal pulses in bilateral upper and lower extremities. NEUROLOGICAL:. No focal neurological deficits. PSYCHIATRIC:. Mood and affect appear appropriate. LABORATORY DATA: See below. IMAGING: PROCEDURE INFORMATION: Exam: CT Abdomen And Pelvis Without Contrast Exam date and time: 10/23/2020 5:10 PM Age: 55 years old Clinical indication: Other: Lower gi bleed; Additional info: Lgi bleed, R/O diverticular TECHNIQUE: Imaging protocol: Computed tomography of the abdomen and pelvis without contrast. Radiation optimization: All CT scans at this facility use at least one of these dose optimization techniques: automated exposure control; mA and/or kV adjustment per patient size (includes targeted exams where dose is matched to clinical indication); or iterative reconstruction. COMPARISON: BLADDER (LIMITED PELVIC) US 12/13/2014 9:00 AM FINDINGS: Lungs: No suspicious mass or airspace process in the visualized lung bases. Liver: Noncontrast liver shows no obvious lesion. Gallbladder and bile ducts: Gallbladder is present and shows no evidence of gallstone. Pancreas: Noncontrast pancreas shows no obvious mass or adjacent fluid. Spleen: Noncontrast spleen shows no obvious focal deformity. Adrenal glands: Adrenal glands are normal in appearance. Kidneys and ureters: Kidneys appear atrophic and contain probable cysts, incompletely imaged. Nonobstructive left renal calculi are also suspected. Stomach and bowel: No evidence of small bowel obstruction. No evidence of acute diverticulitis. Appendix: Normal caliber appendix is identified, with no adjacent inflammation. Intraperitoneal space: No pneumoperitoneum. Vasculature: No aortic aneurysm. Lymph nodes: No enlarged lymph nodes. Urinary bladder: Bladder is decompressed and appears somewhat thick-walled which may be secondary to chronic intermittent bladder outlet obstruction. Reproductive: No overt enlargement of the prostate gland. Bones/joints: Degenerative changes are present in the hips and lumbar spine and old posttraumatic deformities of lower ribs are present. Diffuse idiopathic skeletal hyperostosis changes are present in the thoracolumbar spine with multilevel degenerative spinal canal stenosis. Soft tissues: Fat containing umbilical hernia is present. Midline surgical incision with scarring but no dehiscence or fluid collection. Pelvic muscle atrophy and dystrophic ossification bilaterally, incidental. Other findings: Limited evaluation without enteric or IV contrast. IMPRESSION: 1. No evidence of acute diverticulitis with scattered colonic diverticula noted. 2. Probable chronic bladder wall thickening which may be secondary to intermittent bladder outlet obstruction, given the appearance of the prior ultrasound. 3. Nonobstructive left renal calculi and probable bilateral renal cysts difficult to assess. Outpatient sonography could be performed to confirm that the renal lesions are indeed simple fluid density cysts. COMMENTS: Consistent with the [employer]'s Incidental Findings Committee white paper (J Am Ricardo Radiol 2018): Any incidental renal lesion less than 1 cm or classified as too small to characterize, or any incidental cystic renal lesion characterized as simple-appearing, is likely benign. No follow-up imaging is recommended for these lesions per consensus recommendations based on imaging criteria. Electronically signed by: David Roche On 10/23/2020 17:51:07 PM INDICATION: admission. COMPARISON: None. TECHNIQUE: SINGLE PORTABLE AP VIEW OF THE CHEST WAS PERFORMED. FINDINGS: The heart appears slightly enlarged. There is no acute infiltrate. The mediastinal silhouette is unremarkable. IMPRESSION: NO ACUTE PULMONARY DISEASE. <Electronically signed by Raymundo Falcon > 10/23/201837 MICROBIOLOGY: Please see below. ASSESSMENT: Patient is a 55-year-old male with a past medical history significant for congenital deformities of the limbs,chronic degenerative arthritis/rheumatoid arthritis, dyslipidemia, hypertension, and end-stage renal disease on hemodialysis Friday, Friday, Friday who presented to the [facility] emergency department with a complaint of bloody stool per rectum. . PLAN: 1. Acute blood loss anemia likely secondary to lower GI bleed -Patient with her hemodialysis today when he had an episode of blight red blood per rectum. On questioning, patient had stated that he's had on and off bloody stools the past 2-3 months. Additionally, he admits to dark tarry stools. He states he does have a history of hemorrhoids. Patient denies ever having a colonoscopy in the past. CT imaging did demonstrate some scattered colonic diverticula, which is likely the source of his bleeding. Additionally, in the setting of end-stage renal disease he likely has some degree of atrial venous malformations. -Patient has a baseline hemoglobin of approximately 9-10 likely secondary to anemia of chronic renal disease. Current hemoglobin is 10.1, repeat was 9.6. Will continue to trend hemoglobin and hematocrit. -Will keep patient nothing by mouth for now exception to meds. If there is no active bleeding over the next 24 hours can advance diet -Protonix 40 mg IV twice a day -H&H every 6 hours -Patient does not appear to be currently bleeding. We will continue to monitor. Day team to consider whether patient needs GI consultation for inpatient colonoscopy versus outpatient follow-up. 2. End-stage renal disease on hemodialysis Friday, Friday, Friday -Patient receives hemodialysis every Friday, Friday, Friday. He did not have hemodialysis today as he developed bright red blood per rectum and was sent to the emergency room. -He'll need inpatient dialysis while admitted. 4. Hyperkalemia -Patient has a potassium 5.3. He has a history of end-stage renal disease currently on hemodialysis Friday, Friday, Friday. He did not have hemodialysis today. Will likely need to receive he without as well and patient. -Continue to monitor 5. Hypertension -Continue patient's Lopressor 6. Hyperlipidemia -Continue simvastatin 7. BPH -Continue Flomax 8. DVT prophylaxis -Teds and sequentials Vital Signs Vital Signs Date Time Temp Pulse Resp B/P (MAP) Pulse Ox O2 Delivery O2 Flow Rate FiO2 10/23/20 21:14 74 98 10/23/20 21:00 151/75 (100) 10/23/20 16:58 97.7 17 Room Air Laboratory Data Labs 24H Laboratory Tests 2 10/23/20 16:53: Immature Granulocyte % (Auto) 0.7, Neutrophils (%) (Auto) 57.4, Lymphocytes (%) (Auto) 25.2, Monocytes (%) (Auto) 11.4H, Eosinophils (%) (Auto) 4.7H, Basophils (%) (Auto) 0.6, Neutrophils # (Auto) 4.7, Lymphocytes # (Auto) 2.1, Monocytes # (Auto) 0.9H, Eosinophils # (Auto) 0.4, Basophils # (Auto) 0.1, Nucleated Red Blood Cells % (auto) 0.0, Anion Gap 10, Glomerular Filtration Rate 5.5L, Calcium Level 9.4, Iron Level 58L, Total Iron Binding Capacity 267, Transferrin % Saturation 21.7, Ferritin 855H 10/23/20 18:36: Coronavirus (COVID-19)(PCR) NEGATIVE, Influenza Type A (RT-PCR) NEGATIVE, Influenza Type B (RT-PCR) NEGATIVE, Respiratory Syncytial Virus (PCR) NEGATIVE CBC/BMP Laboratory Tests 10/23/20 16:53 Home Medications Scheduled Docusate Sodium (Dok) 100 Mg Capsule, 100 MG PO BID Folic Acid/Vit B Complex and C (Brittany-Madelyn Tablet) 0.8 Mg Tablet, 0.8 MG PO QHS Lidocaine/Prilocaine (Lidocaine-Prilocaine Cream) 2.5%/2.5% Cream..g., 1 APLCT TOP ASDIRECTED USE ON DIALYSIS PORT Metoprolol Tartrate (Metoprolol Tartrate) 25 Mg Tablet, 25 MG PO BID DOES NOT TAKE AM DOSE ON DIALYSIS DAYS, FRIDAY, FRIDAY AND FRIDAY Simvastatin (Zocor) 80 Mg Tablet, 80 MG PO QHS Tamsulosin HCl (Flomax) 0.4 Mg Capsule, 0.4 MG PO QHS Allergies Coded Allergies: No Known Allergies (Unverified , 10/23/20) A-FIB/CHADSVASC A-FIB History Current/History of A-Fib/PAF?: No GME ATTESTATION GME ATTESTATION My faculty preceptor for this patient encounter was physically present during the encounter and was fully available. All aspects of the patient interview, examination, medical decision making process, and medical care plan development were reviewed and approved by the faculty preceptor. The faculty preceptor is aware and concurs with the plan as stated in the body of this note and will attest to such by his/her cosignature. ATTENDING NOTE Time of service 8:49 PM on Oct 23 2020 Mr. Qureshi is a 55 year old with a history of ESRD, obesity, RA and HTN who sent from dialysis after having an episode of hematochezia; he has been having lower GI bleed for about the last 5 months. He denied having abdominal pain, nausea, vomiting, dizziness, chest pain or dyspnea. Unfortunately, his dialysis had to be postponed. He'll be admitted for evaluation & management of #lower GI bleed possibly 2/2 AVMs #acute blood loss anemia #thrombocytopenia #obesity complicates care Plan: ask RNs to place 2 large bore IVs/ check orthostas/ f/u serial Hg & keep Hg >7 / f/u retic #, iron studies with soluble transferrin receptor (sTfR) which is a more sensitive indicator for iron deficiency, stool occult, LDH, haptoglobin, A1C (pre-transfusion) / consult Nephrology and GI. Rest per Dr. Mcguire's H&P SHANTANU MCGUIRE DO Oct 23, 2020 21:59 JENNY BALLESTEROS MD Oct 24, 2020 02:37
[2020-10-24 03:38] LABS: BASO # 0.1 10^3/uL (0.0-0.2); BASO % 0.6 % (0.0-1.0); EOS # 0.4 10^3/uL (0.0-0.5); EOS % 5.1 % (0.0-3.0); HEMATOCRIT 30.4 % (42.0-52.0); HEMOGLOBIN 9.5 g/dl (13.5-17.5); LYMPH % 24.5 % (24.0-44.0); MEAN CORPUSCULAR HEMOGLOBIN 29.4 pg (27.0-33.0); MEAN CORPUSCULAR HGB CONC 31.3 g/dl (32.0-36.5); MEAN CORPUSCULAR VOLUME 94.1 fl (80.0-96.0); MONO % 11.8 % (0.0-5.0); NEUTROPHILS # 4.7 10^3/uL (1.5-8.5); NEUTROPHILS % 57.3 % (36.0-66.0); PLATELET COUNT, AUTOMATED 151 10^3/uL (150-450); RED BLOOD COUNT 3.23 10^6/uL (4.30-6.10); WHITE BLOOD COUNT 8.2 10^3/uL (4.0-10.0)
[2020-10-24 03:50] LABS: INR 1.09; PROTHROMBIN TIME 14.3 SECONDS (12.5-14.3)
[2020-10-24 03:51] LABS: PARTIAL THROMBOPLASTIN TIME 30.5 SECONDS (24.2-38.5)
[2020-10-24 04:00] VITALS: BP 116/62
[2020-10-24 04:06] LABS: HEMOGLOBIN A1c 4.8 %
[2020-10-24 04:09] LABS: CREATININE FOR GFR 11.3 MG/DL (0.70-1.30); POTASSIUM SERUM 5.1 MEQ/L (3.5-5.1)
[2020-10-24] MEDS ORDERED: SODIUM CHLORIDE 0.9% 1000ML IV PRN (07:30)
[2020-10-24] MEDS ORDERED: LIDOCAINE 1% SDV 5ML VIAL SC PRN (07:30)
[2020-10-24 08:00] VITALS: BP 113/58
--- NOTE | 2020-10-24 10:20 | IPN ---
PROGRESS NOTE DATE: 10/24/2020 SUBJECTIVE: Adis is seen in dialysis. He is admitted with GI bleeding, presumed lower GI bleeding, had bright-red blood per rectum, he said he had one dark tarry stool but after that was bright-red blood. He has no prior colonoscopies. Hemoglobin was 10.1 on admission which was close to his baseline. CT of his abdomen and pelvis showed no acute findings. PHYSICAL EXAMINATION: VITAL SIGNS: Stable. LUNGS: Clear. HEART: Regular rhythm. ABDOMEN: Soft, nontender. EXTREMITIES: No peripheral edema. LABORATORY DATA: Hemoglobin stable at 9.5. Potassium was 5.1. IMPRESSION: 1. Lower GI bleeding. Advised colonoscopy, he is not sure he wants to proceed with this. GI has been consulted. Will wait for them to see him. Serial CBCs have been ordered. 2. Endstage renal disease, receiving dialysis at this point. 3. Diabetes. Hemoglobin A1c was only 4.8 and his blood sugars have been normal. He does not require any insulin coverage at this point. 4. Hypertension, he is on an idiosyncratic regimen of metoprolol 25 mg on Friday, Friday, and Friday and 25 mg each night at bedtime. 5. Hyperlipidemia, continue simvastatin 80 mg daily. 6. History of renal stones, continue Flomax 0.4 mg q.h.s.
[2020-10-24 10:31] LABS: HEMATOCRIT 31.2 % (42.0-52.0); HEMOGLOBIN 10.1 g/dl (13.5-17.5)
[2020-10-24 12:00] VITALS: BP 127/58
[2020-10-24 12:08] LABS: VITAMIN B12 LEVEL 931 PG/ML (247-911)
[2020-10-24 12:09] LABS: FOLATE > 24.0 NG/ML (>5.4)
[2020-10-24] MEDS: PANTOPRAZOLE 40MG VIAL (C9113 PER 1) IV SCH ×2 (13:30→20:06)
[2020-10-24] MEDS: METOPROLOL TART 25 MG TABLET PO SCH ×2 (13:32→20:06)
[2020-10-24] MEDS ORDERED: MOM 30ML SUSPENSION UDC PO ONE (15:00)
[2020-10-24 16:00] VITALS: BP 114/58
[2020-10-24 18:07] LABS: HEMATOCRIT 33.2 % (42.0-52.0); HEMOGLOBIN 10.6 g/dl (13.5-17.5)
[2020-10-24 20:00] VITALS: BP 118/58
[2020-10-24] MEDS: SIMVASTATIN 40 MG TAB PO SCH (20:06)
[2020-10-24] MEDS: TAMSULOSIN 0.4 MG CAP PO SCH (20:06)
--- NOTE | 2020-10-24 23:48 | CR ---
INITIAL INPATIENT CONSULTATION DATE: 10/24/2020 REQUESTING PHYSICIAN: Stacey Pruitt M.D. REASON FOR CONSULTATION: Management of end-stage renal disease and hemodialysis. CHIEF COMPLAINT: Patient presented to the Emergency Room yesterday where he was sent from the dialysis center because of active bleeding per rectum. HISTORY OF PRESENT ILLNESS: Adis Qureshi is a 55-year-old male with a past medical history of end-stage renal disease on hemodialysis every Friday, Friday and Friday, history of hemorrhoids, multiple other comorbidities as mentioned below. He presented to the dialysis center yesterday, however before dialysis when he used the restroom, there was a lot of blood per rectum coming out and the dialysis staff saw a lot of blood clots in his pants and decision was made not to do his dialysis and patient was sent to the Emergency Room for further evaluation. Patient was admitted under the hospitalist service. His CBC is being trended. GI consult has been requested. Nephrology service was called for further help in the management of this patient. I had already arranged the hemodialysis of this patient today morning since he missed his dialysis yesterday. Patient was getting his dialysis when I saw him and he was tolerating his dialysis well. He was not receiving any Heparin during dialysis. PAST MEDICAL HISTORY: End-stage renal disease on hemodialysis every Friday, Friday and Friday, history of congenital limb deformities, chronic degenerative arthritis, hyperlipidemia, hypertension, diabetes mellitus type 2, idiopathic pancreatitis in the past and anemia and end-stage renal disease. PAST SURGICAL HISTORY: Status post multiple feet surgeries because of congenital deformities, left arm AV fistula, cataract surgery bilaterally, and history of left double-J ureteral stent in the past. FAMILY HISTORY: No significant family history of end-stage renal disease requiring hemodialysis. SOCIAL HISTORY: Patient lives at home with his father. He is able to perform most of activities of daily life. He denies any smoking, illicit drug abuse or alcohol abuse. ALLERGIES: No known drug allergies. REVIEW OF SYSTEMS: CONSTITUTIONAL: He denies any fevers or chills. EYES: Denies any blurry vision , double vision. He has poor vision and uses glasses. ENT: He denies any dysphagia, odynophagia. CARDIOVASCULAR: He denies any chest pain or palpitations. RESPIRATORY: He denies any shortness of breath or cough. GI: He reports bleeding per rectum. GENITOURINARY: He reports decreased urine output. MUSCULOSKELETAL: He reports congenital limb deformities. SKIN: He denies any rashes or ulcers. PSYCHIATRIC: He denies any depression or anxiety. HEMATOLOGIC/ONCOLOGIC: He reports bleeding per rectum as mentioned above. ENDOCRINE: He reports history of diabetes mellitus type 2. RN ADVANCED: He denies any strokes or seizures. All other review of systems is negative. PHYSICAL EXAMINATION: GENERAL: Patient is awake, alert, oriented x3, lying in bed getting hemodialysis done. VITAL SIGNS: Temperature 98.4 degrees Fahrenheit, blood pressure 114/58, pulse 58, respiratory rate 18, saturating 95% on room air. HEAD/NECK: Pupils are equally round and reactive to light. He has bilateral pseudophakia, he uses thick glasses. Mucous membranes are moist. Neck supple. There is no JVD. CARDIOVASCULAR: S1, S2, regular rate. No edema of the bilateral lower extremities. RESPIRATORY: Chest is clear to auscultation bilaterally. Bilateral equal air entry. No rales or rhonchi. ABDOMEN: Soft, positive bowel sounds, nontender, no organomegaly. MUSCULOSKELETAL: He has congenital limb deformities, otherwise there is no edema. RN ADVANCED: No focal deficit. Power is 5/5 in all extremities. LABORATORY REVIEW: CBC shows WBC 8.2, hemoglobin 9.5, platelets 151,000. INR 1.09. BMP showed sodium 135, potassium 5.1, chloride 100, bicarb 25, BUN 62, creatinine 11.3. MICROBIOLOGY: No cultures available. IMAGING STUDIES: A chest x-ray was done, which did not show any abnormality. CAT scan of the abdomen and pelvis was done yesterday, which showed no evidence of acute diverticulitis, chronic bladder wall thickening and non-obstructive left renal calculi. CURRENT INPATIENT MEDICATIONS: Patient's medications were all reviewed by myself. He was getting I.V. fluids, which have been stopped now. He is on Metoprolol 25 mg on non-dialysis days, Milk of Magnesia, Protonix 40 mg I.V. twice a day, MiraLax, Simvastatin 80 mg q.h.s. and Flomax. ASSESSMENT AND PLAN: 1. End-stage renal disease: Patient is being dialyzed according to his regular regimen. Ultrafiltration goal will be around 3 liters as tolerated by his blood pressure. 2. Bright red blood per rectum: Patient was n.p.o. by the time I saw him. Blood is on hold, but hemoglobin level is stable at this time. He continues to be on I.V. Protonix. The rest of the management is as per GI recommendations. CAT scan did not show any abnormality. 3. Hypertension: Continue current dose of Lopressor. 4. Hyperlipidemia: Continue current dose of Simvastatin 80 mg q.h.s. Thank you for involving me in the care of this patient. I shall be happy to follow the patient along with you tomorrow morning.
[2020-10-25] VITALS (7 sets, daily range): BP systolic 91–128; BP diastolic 52–68
[2020-10-25 05:39] LABS: BASO % 0.6 % (0.0-1.0); EOS # 0.3 10^3/uL (0.0-0.5); EOS % 4.4 % (0.0-3.0); HEMATOCRIT 31.5 % (42.0-52.0); HEMOGLOBIN 9.9 g/dl (13.5-17.5); LYMPH # 1.8 10^3/uL (1.5-5.0); LYMPH % 26.1 % (24.0-44.0); MEAN CORPUSCULAR HEMOGLOBIN 29.6 pg (27.0-33.0); MEAN CORPUSCULAR HGB CONC 31.4 g/dl (32.0-36.5); MEAN CORPUSCULAR VOLUME 94.3 fl (80.0-96.0); MONO % 14.3 % (0.0-5.0); NEUTROPHILS # 3.8 10^3/uL (1.5-8.5); PLATELET COUNT, AUTOMATED 149 10^3/uL (150-450); RED BLOOD COUNT 3.34 10^6/uL (4.30-6.10)
[2020-10-25 06:04] LABS: CALCIUM LEVEL 8.8 MG/DL (8.5-10.1); CREATININE FOR GFR 8.01 MG/DL (0.70-1.30); GLOMERULAR FILTRATION RATE 7.5 (>56); POTASSIUM SERUM 4.7 MEQ/L (3.5-5.1)
[2020-10-25] MEDS ORDERED: MOM 30ML SUSPENSION UDC PO ONE (07:00)
--- NOTE | 2020-10-25 09:32 | IPN ---
PROGRESS NOTE DATE: 10/25/2020 SUBJECTIVE: Adis is seen in the PCU. He is still having bright-red blood per rectum only when passing stool. No abdominal pain, fever or chills. PHYSICAL EXAMINATION: VITAL SIGNS: Blood pressure 91/52, baseline blood pressure is around 100 to 110, pulse is 68, respiratory rate is 18. GENERAL APPEARANCE: Alert, conversant, in no distress whatsoever. LUNGS: Clear. HEART: Regular rhythm. ABDOMEN: Soft, nontender, no masses. EXTREMITIES: No peripheral edema. LABORATORY DATA: Hemoglobin is stable at 9.9. Potassium is 4.7. IMPRESSION: 1. Lower GI bleeding, probably diverticular. Plan is for colonoscopy tomorrow. He has been seen by Dr. Mcgowan who will be communicating about the case. 2. Endstage renal disease, per Nephrology, Dr. Griffiths is on the case. 3. Hypertension, blood pressure is a little low today, I do not think it is from the bleeding, his hemoglobin is stable. I have ordered hold parameters for his metoprolol.
[2020-10-25] MEDS: PANTOPRAZOLE 40MG VIAL (C9113 PER 1) IV SCH ×2 (09:53→21:29)
--- NOTE | 2020-10-25 14:58 | IPNPDOC ---
Subjective Date Seen The patient was seen on 10/25/20. Subjective Chief Complaint/HPI Pt and nursing staff deny any overnight events. Pt reports bowel movements today and was able to ambulate to commode with assistance. General: Denies: ROS Unobtainable, Chills, Night Sweats, Fatigue, Malaise, Normal Appetite, Other Symptoms Constitutional: Denies: Chills, Fever, Malaise, Night Sweats, Weakness, Fatigue, Weight Loss, Lethargy, Other Pulmonary: Denies: Dyspnea, Cough, Pleuritic Chest Pain, Other Symptoms Objective Physical Examination General Exam: Positive: Alert, Cooperative, No Acute Distress ENT Exam: Positive: Mucous membr. moist/pink Chest Exam: Positive: Clear to auscultation, Normal air movement Heart Exam: Positive: Rate Normal, Regular Rhythm, Normal S1, Normal S2 Abdomen Exam: Positive: Normal bowel sounds Extremity Exam: Positive: Other (congenital limb deformities present) Assessment /Plan Assessment # ESRD: Patient was dialyzed yesterday. Tolerated well. Pt appears euvolemic on exam today. # Bright red blood per rectum: Continue I.V. Protonix. Hgb is stable. Management per GI recommendations. # Hypertension: Continue current dose of Lopressor. # Hyperlipidemia: Continue current dose of Simvastatin 80 mg q.h.s. Plan/VTE VTE Prophylaxis Ordered?: No GME ATTESTATION My faculty preceptor for this patient encounter was physically present during the encounter and was fully available. All aspects of the patient interview, examination, medical decision making process, and medical care plan development were reviewed and approved by the faculty preceptor. The faculty preceptor is aware and concurs with the plan as stated in the body of this note and will attest to such by his/her cosignature. VS, I&O, 24H, Fishbone Vital Signs/I&O Vital Signs Date Time Temp Pulse Resp B/P (MAP) Pulse Ox O2 Delivery O2 Flow Rate FiO2 10/25/20 12:00 97.4 55 20 112/62 (79) 95 10/25/20 08:00 Room Air I&O- Last 24 Hours up to 6 AM 10/25/20 06:00 Intake Total 1060 ml Output Total 3000 ml Balance -1940 ml Laboratory Data 24H LABS Laboratory Tests 2 10/25/20 05:25: Immature Granulocyte % (Auto) 0.6, Neutrophils (%) (Auto) 54.0, Lymphocytes (%) (Auto) 26.1, Monocytes (%) (Auto) 14.3H, Eosinophils (%) (Auto) 4.4H, Basophils (%) (Auto) 0.6, Neutrophils # (Auto) 3.8, Lymphocytes # (Auto) 1.8, Monocytes # (Auto) 1.0H, Eosinophils # (Auto) 0.3, Basophils # (Auto) 0.0, Nucleated Red Blood Cells % (auto) 0.0, Anion Gap 10, Glomerular Filtration Rate 7.5L, Calcium Level 8.8 CBC/BMP Laboratory Tests 10/24/20 16:07 10/25/20 05:25 Attending Note Attending Note Rectal Bleed ESRD on HD Anemia sec to rectal bleed. HD as per regular schedule. Follow up with Surg as outpatient. Brock Griffiths DO Oct 25, 2020 14:58 KLEBER GRIFFITHS MD Oct 31, 2020 13:26
[2020-10-25] MEDS ORDERED: POLYETHYLENE GLYCOL (MIRALAX) 238GM BOTTLE PO ONE (17:00)
[2020-10-25] MEDS: SIMVASTATIN 40 MG TAB PO SCH (21:30)
[2020-10-25] MEDS: TAMSULOSIN 0.4 MG CAP PO SCH (21:30)
[2020-10-25] MEDS: METOPROLOL TART 25 MG TABLET PO SCH (21:30)
[2020-10-26] VITALS (8 sets, daily range): BP systolic 98–122; BP diastolic 51–64
[2020-10-26] MEDS ORDERED: POLYETHYLENE GLYCOL (MIRALAX) 238GM BOTTLE PO ONE (05:00)
[2020-10-26 07:03] LABS: BASO % 0.6 % (0.0-1.0); EOS # 0.4 10^3/uL (0.0-0.5); EOS % 5.3 % (0.0-3.0); HEMATOCRIT 31.2 % (42.0-52.0); HEMOGLOBIN 9.5 g/dl (13.5-17.5); LYMPH # 1.5 10^3/uL (1.5-5.0); LYMPH % 22.6 % (24.0-44.0); MEAN CORPUSCULAR HEMOGLOBIN 28.6 pg (27.0-33.0); MEAN CORPUSCULAR HGB CONC 30.4 g/dl (32.0-36.5); MONO # 1.1 10^3/uL (0.0-0.8); MONO % 16.5 % (0.0-5.0); NEUTROPHILS # 3.6 10^3/uL (1.5-8.5); NEUTROPHILS % 54.7 % (36.0-66.0); PLATELET COUNT, AUTOMATED 152 10^3/uL (150-450); RED BLOOD COUNT 3.32 10^6/uL (4.30-6.10)
[2020-10-26 07:18] LABS: WHITE BLOOD COUNT 6.6 10^3/uL (4.0-10.0)
[2020-10-26 07:28] LABS: CALCIUM LEVEL 9.1 MG/DL (8.5-10.1); GLOMERULAR FILTRATION RATE 5.8 (>56); POTASSIUM SERUM 4.7 MEQ/L (3.5-5.1)
[2020-10-26] MEDS: PANTOPRAZOLE 40MG VIAL (C9113 PER 1) IV SCH ×2 (08:38→21:21)
[2020-10-26] MEDS: METOPROLOL TART 25 MG TABLET PO SCH ×2 (08:38→21:21)
--- NOTE | 2020-10-26 09:29 | IPN ---
PROGRESS NOTE DATE: 10/26/2020 SUBJECTIVE: Adis is still having rectal bleeding when he passes stool. He is going for a colonoscopy today. He is taking his prep at this time. PHYSICAL EXAMINATION: VITAL SIGNS: Afebrile. Vital signs are stable. LUNGS: Clear. HEART: Regular rhythm. ABDOMEN: Soft, nontender. LABORATORY DATA: Hemoglobin is 9.5 which is essentially stable from yesterday, potassium is 4.7. IMPRESSION: 1. Rectal bleeding, probably diverticular. Colonoscopy today. 2. Endstage renal disease. Dialysis planned for today. 3. Hypertension, well-controlled on current regimen.
[2020-10-26] MEDS ORDERED: SLF 3 ML SYR IV PRN (10:45)
--- NOTE | 2020-10-26 13:23 | IPNPDOC ---
Subjective Date Seen The patient was seen on 10/26/20. Subjective Chief Complaint/HPI Pt was sitting upright in bed upon examination. Pt and nursing staff deny any overnight events. General: Denies: ROS Unobtainable, Chills, Night Sweats, Fatigue, Malaise, Normal Appetite, Other Symptoms Constitutional: Denies: Chills, Fever, Malaise, Night Sweats, Weakness, Fatigue, Weight Loss, Lethargy, Other Pulmonary: Denies: Dyspnea, Cough, Pleuritic Chest Pain, Other Symptoms Objective Physical Examination General Exam: Positive: Alert, Cooperative, No Acute Distress ENT Exam: Positive: Mucous membr. moist/pink Chest Exam: Positive: Clear to auscultation, Normal air movement Heart Exam: Positive: Rate Normal, Regular Rhythm, Normal S1, Normal S2 Abdomen Exam: Positive: Normal bowel sounds Extremity Exam: Positive: Edema (bilateral lower extremity slightly edematous to knees, L>R), Other (congenital limb deformities present) Assessment /Plan Assessment # ESRD: Patient is being switched back to his normal schedule for dialysis of MWF. He will be dialyzed tomorrow. Pt appears overall euvolemic with beginning of fluid overload with lower extremity edema today, dialysis tomorrow should help with this. # Bright red blood per rectum: Continue I.V. Protonix. Hgb is stable. Management per GI recommendations. # Hypertension: Continue current dose of Lopressor. # Hyperlipidemia: Continue current dose of Simvastatin 80 mg q.h.s. Plan/VTE VTE Prophylaxis Ordered?: No GME ATTESTATION My faculty preceptor for this patient encounter was physically present during the encounter and was fully available. All aspects of the patient interview, examination, medical decision making process, and medical care plan development were reviewed and approved by the faculty preceptor. The faculty preceptor is aware and concurs with the plan as stated in the body of this note and will attest to such by his/her cosignature. VS, I&O, 24H, Fishbone Vital Signs/I&O Vital Signs Date Time Temp Pulse Resp B/P (MAP) Pulse Ox O2 Delivery O2 Flow Rate FiO2 10/26/20 12:00 97.6 67 18 108/55 (72) 100 10/25/20 08:00 Room Air I&O- Last 24 Hours up to 6 AM 10/26/20 06:00 Intake Total 1260 ml Output Total 0 ml Balance 1260 ml Laboratory Data 24H LABS Laboratory Tests 2 10/26/20 06:38: Immature Granulocyte % (Auto) 0.3, Neutrophils (%) (Auto) 54.7, Lymphocytes (%) (Auto) 22.6L, Monocytes (%) (Auto) 16.5H, Eosinophils (%) (Auto) 5.3H, Basophils (%) (Auto) 0.6, Neutrophils # (Auto) 3.6, Lymphocytes # (Auto) 1.5, Monocytes # (Auto) 1.1H, Eosinophils # (Auto) 0.4, Basophils # (Auto) 0.0, Nucleated Red Blood Cells % (auto) 0.0, Anion Gap 9, Glomerular Filtration Rate 5.8L, Calcium Level 9.1 CBC/BMP Laboratory Tests 10/26/20 06:38 Attending Note Attending Note ESRD on HD Anemia sec to GI Bleed HD back to F schedule. Colonoscopy and surgical follow up as outpatient. Brock Griffiths DO Oct 26, 2020 13:23 KLEBER GRIFFITHS MD Oct 31, 2020 13:44
[2020-10-26] MEDS: SLF 3 ML SYR IV SCH ×2 (14:00→21:21)
[2020-10-26] MEDS ORDERED: propofoL 200 MG/20 ML VIAL As Ordered ONE (15:24)
[2020-10-26] MEDS ORDERED: LIDOCAINE 2% 100MG/5ML SDV (FOR ANES.) As Ordered ONE (15:24)
[2020-10-26] MEDS ORDERED: fentaNYL 100 MCG/2 ML INJECTION (J3010) As Ordered ONE (15:24)
--- NOTE | 2020-10-26 16:10 | ROOR ---
Patient Name: Adis Qureshi Procedure Date: 10/26/2020 3:52 PM Date of : 1965 Age: 55 Room: [facility] Gender: Male Note Status: Finalized Procedure: Upper GI endoscopy Indications: Iron deficiency anemia Providers: James MCGOWAN MD Referring MD: Adela Ferreira MD, Raji Gregg MD Requesting Provider: Medicines: Monitored Anesthesia Care Complications: No immediate complications. Procedure: Pre-Anesthesia Assessment: - The heart rate, respiratory rate, oxygen saturations, blood pressure, adequacy of pulmonary ventilation, and response to care were monitored throughout the procedure. The Endoscope was introduced through the mouth, and advanced to the second part of duodenum. The upper GI endoscopy was accomplished without difficulty. The patient tolerated the procedure well. Findings: Localized mild inflammation characterized by erosions was found in the gastric antrum. Biopsies were taken with a cold forceps for histology. The exam of the stomach was otherwise normal. The examined esophagus was normal. The examined duodenum was normal. Impression: - Focal area 8 mm gastritis/erythema. Biopsied. - Normal esophagus. - Normal examined duodenum. Recommendation: - Telephone endoscopist for pathology results in 2 weeks. - Use a proton pump inhibitor PO daily for 3 months. Procedure Code(s): --- Professional --- 72219, Esophagogastroduodenoscopy, flexible, transoral; with biopsy, single or multiple Diagnosis Code(s): --- Professional --- D50.9, Iron deficiency anemia, unspecified K29.70, Gastritis, unspecified, without bleeding CPT copyright 2019 [employer]. All rights reserved. The codes documented in this report are preliminary and upon concrete hopper operator review may be revised to meet current compliance requirements. James Mcgowan MD James MCGOWAN MD 10/26/2020 4:10:21 PM Electronically signed by James MCGOWAN MD Number of Addenda: 0 Note Initiated On: 10/26/2020 3:52 PM Estimated Blood Loss: Estimated blood loss: none.
--- NOTE | 2020-10-26 16:28 | ROOR ---
Patient Name: Adis Qureshi Procedure Date: 10/26/2020 3:53 PM Date of : 1965 Age: 55 Room: [facility] Gender: Male Note Status: Finalized Procedure: Colonoscopy Indications: Hematochezia Providers: James MCGOWAN MD Referring MD: Raji Gregg MD, Adela Ferreira MD, 2. Inpatient 2. Inpatient Requesting Provider: Medicines: Monitored Anesthesia Care Complications: No immediate complications. Procedure: Pre-Anesthesia Assessment: - The heart rate, respiratory rate, oxygen saturations, blood pressure, adequacy of pulmonary ventilation, and response to care were monitored throughout the procedure. The Colonoscope was introduced through the anus and advanced to 10 cm into the ileum. The colonoscopy was performed without difficulty. The patient tolerated the procedure well. The quality of the bowel preparation was good. Findings: Hemorrhoids were found on perianal exam. Non-thrombosed prolapsed external and internal hemorrhoids were found during retroflexion. The hemorrhoids were large. The colon (entire examined portion) appeared normal. The terminal ileum appeared normal. Impression: - Moderate to large Non-thrombosed prolapsed external and internal hemorrhoids. - The entire examined colon is normal. (I see two small non-bleeding diverticula-dubious significance). - The examined portion of the ileum was normal. - No specimens collected. Recommendation: - (I do see a couple of small diverticula in his sigmoid colon, however these appear incidental/dubious significance. I suspect the rectal bleeding was most likely related to the internal and external hemorrhoids.) - For frequent rebleeding, consideration may be given to an outpatient surgical referral. - Return patient to [facility] for [facility] care. Procedure Code(s): --- Professional --- 35401, Colonoscopy, flexible; diagnostic, including collection of specimen(s) by brushing or washing, when performed (separate procedure) Diagnosis Code(s): --- Professional --- K92.1, Melena (includes Hematochezia) K64.8, Other hemorrhoids CPT copyright 2019 [employer]. All rights reserved. The codes documented in this report are preliminary and upon brand development manager review may be revised to meet current compliance requirements. James Mcgowan MD James MCGOWAN MD 10/26/2020 4:28:18 PM Electronically signed by James MCGOWAN MD Number of Addenda: 0 Note Initiated On: 10/26/2020 3:53 PM Estimated Blood Loss: Estimated blood loss: none.
[2020-10-26] MEDS: SIMVASTATIN 40 MG TAB PO SCH (21:21)
[2020-10-26] MEDS: TAMSULOSIN 0.4 MG CAP PO SCH (21:21)
[2020-10-27] VITALS: BP 112/50
[2020-10-27 04:00] VITALS: BP 115/59
[2020-10-27] MEDS: SLF 3 ML SYR IV SCH ×2 (05:12→14:11)
[2020-10-27 05:43] LABS: BASO % 0.5 % (0.0-1.0); EOS # 0.3 10^3/uL (0.0-0.5); EOS % 4.9 % (0.0-3.0); HEMATOCRIT 28.6 % (42.0-52.0); HEMOGLOBIN 8.9 g/dl (13.5-17.5); LYMPH # 1.5 10^3/uL (1.5-5.0); LYMPH % 25.9 % (24.0-44.0); MEAN CORPUSCULAR HEMOGLOBIN 29.5 pg (27.0-33.0); MEAN CORPUSCULAR HGB CONC 31.1 g/dl (32.0-36.5); MEAN CORPUSCULAR VOLUME 94.7 fl (80.0-96.0); MONO # 0.9 10^3/uL (0.0-0.8); MONO % 15.2 % (0.0-5.0); NEUTROPHILS # 3.2 10^3/uL (1.5-8.5); NEUTROPHILS % 53.2 % (36.0-66.0); PLATELET COUNT, AUTOMATED 146 10^3/uL (150-450); RED BLOOD COUNT 3.02 10^6/uL (4.30-6.10); WHITE BLOOD COUNT 5.9 10^3/uL (4.0-10.0)
[2020-10-27 06:10] LABS: CREATININE FOR GFR 11.8 MG/DL (0.70-1.30); GLOMERULAR FILTRATION RATE 4.8 (>56); POTASSIUM SERUM 4.5 MEQ/L (3.5-5.1)
[2020-10-27] MEDS ORDERED: SODIUM CHLORIDE 0.9% 1000ML IV PRN (07:45)
[2020-10-27] MEDS ORDERED: LIDOCAINE 1% SDV 5ML VIAL SC PRN (07:45)
[2020-10-27 07:53] VITALS: BP 101/58
--- NOTE | 2020-10-27 10:57 | DSES ---
DISCHARGE SUMMARY DATE OF ADMISSION: 10/23/2020 DATE OF DISCHARGE: 10/27/2020 PRINCIPAL DIAGNOSIS: Lower gastrointestinal (GI) bleed from large internal and external hemorrhoids with acute blood loss anemia. SECONDARY DIAGNOSES: 1. End-stage renal disease. 2. Hypertensive heart disease. 3. Type 2 diabetes. 4. Hyperlipidemia. 5. History of renal stones. HISTORY: The patient, Adis Qureshi, was admitted with lower GI bleed. Details are in history and physical from admission. HOSPITAL COURSE: Admitted to a medical bed. Serial CBCs were obtained. He had a drop in his hemoglobin, but never required transfusion. Hemoglobin stabilized at around 8.9. He underwent upper and lower endoscopy by Dr. Mcgowan yesterday. The upper endoscopy just showed a small area of gastritis. The lower endoscopy showed scattered diverticuli, but he had very large internal and external hemorrhoids, which appeared to be the source of the bleeding. Dr. Gomes was consulted today to see the patient in consultation to set up outpatient treatment of these. He maintained his usual dialysis schedule. DISCHARGE PHYSICAL EXAMINATION: On the day of discharge, his vital signs were stable. He was undergoing dialysis. DIAGNOSTIC LABORATORY DATA: His hemoglobin was 8.9, platelets 146,000, white count 5.9. Potassium 4.5, sodium 136. COVID test was negative. INR was 1.09. DIAGNOSTIC IMAGING: CT of the abdomen and pelvis on admission showed chronic bladder wall thickening, nonobstructing left renal calculi, and bilateral renal cysts. No acute abdominal process. DISCHARGE DISPOSITION: He is discharged home in improved and stable condition. DISCHARGE FOLLOW-UP: He will be seen by Dr. Gomes who will arrange outpatient treatment for his hemorrhoids. His iron supplements will be provided by nephrology. He will continue his usual dialysis schedule. DISCHARGE MEDICATIONS: Will be the same as before admission. 1. Colace as needed. 2. Brittany-Madelyn 0.8 mg q. h.s. 3. Metoprolol 25 mg at bedtime and 25 mg in the morning only on Friday, , Friday, and Friday (not on dialysis days). 4. Simvastatin 80 mg daily. 5. Tamsulosin 0.4 mg q. h.s. CBC recommended as an outpatient. No pending labs at this time except for pathology results from the upper endoscopy biopsy.
[2020-10-27 12:39] VITALS: BP 123/74
[2020-10-27] MEDS: PANTOPRAZOLE 40MG VIAL (C9113 PER 1) IV SCH (12:41)
[2020-10-27 12:51] VITALS: BP 102/55
--- NOTE | 2020-10-27 19:23 | IPN ---
NEPHROLOGY PROGRESS NOTE DATE: 10/27/2020 SUBJECTIVE: Patient was seen and examined at the bedside today morning during hemodialysis procedure. He is tolerating the hemodialysis procedure well. He got a colonoscopy done yesterday, which showed internal and external hemorrhoids. No active bleeding or polyp was seen in the colon. OBJECTIVE: VITAL SIGNS: Temperature 97.5 degrees Fahrenheit, blood pressure 102/55, pulse 86, respiratory rate 20, saturating 97% on room air. INTAKE AND OUTPUT: Urine output recorded as 200 mL. Weight in the bed scale is 105.2 kg. PHYSICAL EXAMINATION: GENERAL: Patient is awake, alert, oriented x3, lying in bed getting hemodialysis done. HEAD/NECK: Pupils equally round and reactive to light. Neck is supple, no JVD. CARDIOVASCULAR: S1, S2, regular rate. No edema of the bilateral lower extremities. RESPIRATORY: Chest is clear to auscultation bilaterally. Bilateral equal air entry. No rales or rhonchi. ABDOMEN: Soft, positive bowel sounds, nontender. No organomegaly. 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 TUBULAR SPLITTING MACHINE TENDER: No focal deficit. Power is 5/5 in all extremities. LABORATORY REVIEW: CBC showed WBC 5.9, hemoglobin 8.9, platelets 146,000. BMP showed sodium 136, potassium 4.5, chloride 99, bicarb 27, BUN 48, creatinine 11.8. CURRENT INPATIENT MEDICATIONS: Patient's medications were all reviewed by myself. There is no significant change in the medications today as compared with yesterday. ASSESSMENT AND PLAN: 1. End-stage renal disease: Patient is being dialyzed according to his regular schedule. Ultrafiltration goal will be around 3.5 liters as tolerated by his blood pressure. 2. Rectal bleeding: Patient got colonoscopy done, which showed external and internal hemorrhoids. Patient will need to see surgical service as an outpatient. 3. Anemia secondary to end-stage renal disease and recent bleeding: Patient did not require any blood transfusion during this admission. Hemoglobin level is slightly low, however, he continues to be on CARLOS and Venofer as an outpatient. DISPOSITION: Patient is optimized to be discharged from nephrology standpoint after dialysis today.
--- NOTE | 2020-10-27 20:46 | CR ---
CONSULTATION DATE: 10/27/2020 REASON FOR CONSULTATION: Hemorrhoids. HISTORY OF PRESENT ILLNESS: Patient is a 55-year-old male who was admitted to the hospital on October 23 with concerns of GI bleeding. He claims it has been getting worse over the past few weeks, but he has had persistent bleeding intermittently for over a year at this point. He has never had any surgery for his hemorrhoids in the past, however, he just had a colonoscopy yesterday that shows internal and external hemorrhoids not actively bleeding, but likely as the cause for the source of his bleeding. Because of that, they recommended surgical consult. At this time, his hemoglobin is stable. He says he is still having some blood in his bowel movements, but it is not a large volume. He is not requiring any transfusion at this time. I gave him the choice of banding in the hospital versus in the office. I explained the differences between the two and he understands and agreed to come and see me in the office. 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 PAST SURGICAL HISTORY: Multiple feet surgeries, left arm AV fistula, bilateral cataracts, left ureterotomy and insertion of a left ureteral stent. FAMILY HISTORY: Noncontributory. SOCIAL HISTORY: Denies any drug, alcohol or tobacco abuse. ALLERGIES: None. HOME MEDICATIONS: Please see medical record. REVIEW OF SYSTEMS: Pertinent positives and negatives as stated in the HPI. PHYSICAL EXAMINATION: GENERAL: Alert and oriented x3, in no acute distress. VITALS: Temperature 97.5, pulse 86, respirations 20, blood pressure 102/55, pulse oximetry 97% on room air. HEENT: Pupils equally round and reactive. He does wear very thick glasses due to his cataracts. HEART: S1, S2, regular rate and rhythm. LUNGS: Clear to auscultation bilaterally. ABDOMEN: Soft, nontender, non-distended. RECTAL: Exam deferred at this time since he had just had a colonoscopy yesterday. LABORATORY DATA: Hemoglobin 9.5 yesterday and 8.9 today. IMAGING STUDIES: CT abdomen and pelvis was completed on admission and showed no evidence of acute diverticulitis and there is scattered diverticula, probable chronic bladder wall thickening, non-obstructive left renal calculi and bilateral renal cysts. ASSESSMENT AND PLAN: Patient is a 55-year-old male with internal and external hemorrhoids. Recommendation at this time is to proceed with hemorrhoid banding in the office as opposed to in the Operating Room. The advantage of the office is that he is awake and can tell me if I am causing any pain during the procedure, which is better for him in the long run. Banding can be done in the hospital, but it is much less effective and higher risk of causing severe pains. He understands. He is nervous about it, but he agrees to follow-up with me in the office. I have already talked to my office, we will get him in this following , and we will see him and plan on banding him there in the office.
== END 2020-10-27 15:58 | disposition home or self-care (01) | DRG 393 ==
LOC: M ED 16:26 → M ED INP 19:26 → M PCU 21:32
PROVIDERS: ADMIT Internal Medicine; ATTEND Family Medicine
PROC: 5A1D70Z Performance of Urinary Filtration, Intermittent, Less than 6 Hours Per Day (ICD-10-PCS; 2020-10-24)
PROC: 0DJD8ZZ Inspection of Lower Intestinal Tract, Via Natural or Artificial Opening Endoscopic (ICD-10-PCS; 2020-10-26)
PROC: 0DB68ZX Excision of Stomach, Via Natural or Artificial Opening Endoscopic, Diagnostic (ICD-10-PCS; principal; 2020-10-26 14:15)
DX: K64.8 Other hemorrhoids (principal); N18.6 End stage renal disease; D62 Acute posthemorrhagic anemia; I13.11 Hypertensive heart and chronic kidney disease without heart failure, with stage 5 chronic kidney disease, or end stage renal disease; M06.9 Rheumatoid arthritis, unspecified; K64.4 Residual hemorrhoidal skin tags; E78.5 Hyperlipidemia, unspecified; M19.90 Unspecified osteoarthritis, unspecified site; N40.0 Benign prostatic hyperplasia without lower urinary tract symptoms; E87.5 Hyperkalemia; K57.30 Diverticulosis of large intestine without perforation or abscess without bleeding; D63.1 Anemia in chronic kidney disease; K29.70 Gastritis, unspecified, without bleeding; N28.1 Cyst of kidney, acquired; N20.0 Calculus of kidney; D69.6 Thrombocytopenia, unspecified; Z99.2 Dependence on renal dialysis; Q74.2 Other congenital malformations of lower limb(s), including pelvic girdle; Q74.0 Other congenital malformations of upper limb(s), including shoulder girdle; Z98.41 Cataract extraction status, right eye; Z98.42 Cataract extraction status, left eye; Z20.822 Contact with and (suspected) exposure to COVID-19; Z79.899 Other long term (current) drug therapy

== ENCOUNTER 2021-07-04 15:13 | Inpatient (IN) | payer MEDICARE, MEDICAID ==
[~2021-07-04] VITALS: Ht 160 cm; Wt 109.5 kg
[~2021-07-04 15:13] MED LIST changes: +DOK1CAP4 PO; +LIDO1CRE42 TOP; -LIDO2.5C15 TOP
[2021-07-04] MEDS ORDERED: TAMS1CAP17 (15:19)
--- OUTSIDE RECORDS SUMMARY | 2021-07-04 15:25 | CCD ---
Author Author [facility] Organization [facility] Address Unknown Phone Unavailable Care Team Providers Care Blood Typer Name Role Phone BRYDEN, A STANLEY DO Unavailable Unavailable BRYDEN, A STANLEY DO Unavailable Unavailable BRYDEN, A STANLEY DO Unavailable Unavailable BRYDEN, A STANLEY DO Unavailable Unavailable BRYDEN, A STANLEY DO Unavailable Unavailable BRYDEN, A STANLEY DO Unavailable Unavailable BRYDEN, A STANLEY DO Unavailable Unavailable BRYDEN, A STANLEY DO Unavailable Unavailable BRYDEN, A STANLEY DO Unavailable Unavailable BRYDEN, A STANLEY DO Unavailable Unavailable BRYDEN, A STANLEY DO Unavailable Unavailable BRYDEN, A STANLEY DO Unavailable Unavailable BRYDEN, A STANLEY DO Unavailable Unavailable BRYDEN, A STANLEY DO Unavailable Unavailable BRYDEN, A STANLEY DO Unavailable Unavailable BRYDEN, A STANLEY DO Unavailable Unavailable BRYDEN, A STANLEY DO Unavailable Unavailable BRYDEN, A STANLEY DO Unavailable Unavailable BRYDEN, A STANLEY DO Unavailable Unavailable BRYDEN, A STANLEY DO Unavailable Unavailable BRYDEN, A STANLEY DO Unavailable Unavailable BRYDEN, A STANLEY DO Unavailable Unavailable BRYDEN, A STANLEY DO Unavailable Unavailable BRYDEN, A STANLEY DO Unavailable Unavailable BRYDEN, A STANLEY DO Unavailable Unavailable BRYDEN, A STANLEY DO Unavailable Unavailable BRYDEN, A STANLEY DO Unavailable Unavailable BRYDEN, A STANLEY DO Unavailable Unavailable BRYDEN, A STANLEY DO Unavailable Unavailable Re-disclosure Warning The records that you are [...] is protected by Article 27-F of the [facility] Public Health law. If you continue you may have access to information: Regarding HIV / AIDS; Provided by facilities licensed or operated by the [facility] Office of Mental Health; or Provided by the [facility] Office for People With Developmental Disabilities. If such information is present, then the following [facility] mandated warning applies: This information has [...] law may result in a fine or senior care sentence or both. A general authorization for the release of medical or other information is NOT sufficient authorization for further disc losure. Family History Family Member Name Family Member Gender Family Member Status Date o f Status Description Data Source(s) Unknown Male Problem [facility]ENT ([facility] ) Encounters Encounter Providers Location Date Indications Data Source(s ) Outpatient Attender: STANLEY Marshall/René/Severino/Grabiel ndl 11/02/2020 02:00:00 PM EST [facility] Medications Medication Brand Name Start Date Product Form Dose Route Admi nistrative Instructions Pharmacy Instructions Status Indications Reaction Description Data Source(s) 25 mg 04/25/2021 12:00:00 AM EDT tablet 60 TAKE ONE TABLET BY MOUTH TWICE A DAY TAKE ONE TABLET BY MOUTH TWICE A DAY SOLD: 05/27/2021 [facility] 25 mg 04/25/2021 12:00:00 AM EDT tablet 60 TAKE ONE TABLET BY MOUTH TWICE A DAY TAKE ONE TABLET BY MOUTH TWICE A DAY SOLD: 04/27/2021 [facility] 25 mg 04/25/2021 12:00:00 AM EDT tablet 60 TAKE ONE TABLET BY MOUTH TWICE A DAY TAKE ONE TABLET BY MOUTH TWICE A DAY SOLD: 06/25/2021 [facility] 80 mg 03/26/2021 12:00:00 AM EDT tablet 90 TAKE ONE TABLET BY MOUTH EVERY DAY TAKE ONE TABLET BY MOUTH EVERY DAY SOLD: 03/28/2021 [facility] 0.4 mg 03/26/2021 12:00:00 AM EDT capsule 90 TAKE ONE CAPSULE BY MOUTH EVERY DAY AT BEDTIME TAKE ONE CAPSULE BY MOUTH EVERY DAY AT BEDTIME SOLD: [facility] 80 mg 03/26/2021 12:00:00 AM EDT tablet 90 TAKE ONE TABLET BY MOUTH EVERY DAY TAKE ONE TABLET BY MOUTH EVERY DAY SOLD: 06/25/2021 [facility] 0.4 mg 03/26/2021 12:00:00 AM EDT capsule 90 TAKE ONE CAPSULE BY MOUTH EVERY DAY AT BEDTIME TAKE ONE CAPSULE BY MOUTH EVERY DAY AT BEDTIME SOLD: [facility] Ascorbic Acid 60 MG / Calcium Pantothena te 10 MG / D-BIOTIN 0.3 MG / Folic Acid 0.8 MG / Niacinamide 20 MG / pyridoxine 10 MG / Riboflavin 1.7 MG / Thiamine 1.5 MG / Vitamin B 12 0.006 MG Oral Tablet [Brittany-Madelyn] FOLIC ACID/VIT B COMPLEX AND C 01/24/2021 12:00:00 AM EDT tablet 30 TAKE ONE TABLET BY MOUTH EVERY DAY TAKE ONE TABLET BY MOUTH EVERY DAY SOLD: 04/27/2021 [facility] Ascorbic Acid 60 MG / Calcium Pantothena te 10 MG / D-BIOTIN 0.3 MG / Folic Acid 0.8 MG / Niacinamide 20 MG / pyridoxine 10 MG / Riboflavin 1.7 MG / Thiamine 1.5 MG / Vitamin B 12 0.006 MG Oral Tablet [Brittany-Madelyn] FOLIC ACID/VIT B COMPLEX AND C 01/24/2021 12:00:00 AM EDT tablet 30 TAKE ONE TABLET BY MOUTH EVERY DAY TAKE ONE TABLET BY MOUTH EVERY DAY SOLD: 02/27/2021 [facility] Ascorbic Acid 60 MG / Calcium Pantothena te 10 MG / D-BIOTIN 0.3 MG / Folic Acid 0.8 MG / Niacinamide 20 MG / pyridoxine 10 MG / Riboflavin 1.7 MG / Thiamine 1.5 MG / Vitamin B 12 0.006 MG Oral Tablet [Brittany-Madelyn] FOLIC ACID/VIT B COMPLEX AND C 01/24/2021 12:00:00 AM EDT tablet 30 TAKE ONE TABLET BY MOUTH EVERY DAY TAKE ONE TABLET BY MOUTH EVERY DAY SOLD: 06/25/2021 [facility] Ascorbic Acid 60 MG / Calcium Pantothena te 10 MG / D-BIOTIN 0.3 MG / Folic Acid 0.8 MG / Niacinamide 20 MG / pyridoxine 10 MG / Riboflavin 1.7 MG / Thiamine 1.5 MG / Vitamin B 12 0.006 MG Oral Tablet [Brittany-Madelyn] FOLIC ACID/VIT B COMPLEX AND C 01/24/2021 12:00:00 AM EDT tablet 30 TAKE ONE TABLET BY MOUTH EVERY DAY TAKE ONE TABLET BY MOUTH EVERY DAY SOLD: 03/28/2021 [facility] Ascorbic Acid 60 MG / Calcium Pantothena te 10 MG / D-BIOTIN 0.3 MG / Folic Acid 0.8 MG / Niacinamide 20 MG / pyridoxine 10 MG / Riboflavin 1.7 MG / Thiamine 1.5 MG / Vitamin B 12 0.006 MG Oral Tablet [Brittany-Madelyn] FOLIC ACID/VIT B COMPLEX AND C 01/24/2021 12:00:00 AM EDT tablet 30 TAKE ONE TABLET BY MOUTH EVERY DAY TAKE ONE TABLET BY MOUTH EVERY DAY SOLD: 01/26/2021 [facility] Ascorbic Acid 60 MG / Calcium Pantothena te 10 MG / D-BIOTIN 0.3 MG / Folic Acid 0.8 MG / Niacinamide 20 MG / pyridoxine 10 MG / Riboflavin 1.7 MG / Thiamine 1.5 MG / Vitamin B 12 0.006 MG Oral Tablet [Brittany-Madleyn] FOLIC ACID/VIT B COMPLEX AND C 01/24/2021 12:00:00 AM EDT tablet 30 TAKE ONE TABLET BY MOUTH EVERY DAY TAKE ONE TABLET BY MOUTH EVERY DAY SOLD: 05/27/2021 [facility] 100 mg 10/12/2020 12:00:00 AM EST capsule 180 TAKE ONE CAPSULE BY MOUTH TWICE A DAY TAKE ONE CAPSULE BY MOUTH TWICE A DAY SOLD: 10/12/2020 [facility] 25 mg 10/04/2020 12:00:00 AM EST tablet 60 TAKE ONE TABLET BY MOUTH TWICE A DAY TAKE ONE TABLET BY MOUTH TWICE A DAY SOLD: 12/28/2020 [facility] 25 mg 10/04/2020 12:00:00 AM EST tablet 60 TAKE ONE TABLET BY MOUTH TWICE A DAY TAKE ONE TABLET BY MOUTH TWICE A DAY SOLD: 11/05/2020 [facility] 25 mg 10/04/2020 12:00:00 AM EST tablet 60 TAKE ONE TABLET BY MOUTH TWICE A DAY TAKE ONE TABLET BY MOUTH TWICE A DAY SOLD: 02/27/2021 [facility] 25 mg 10/04/2020 12:00:00 AM EST tablet 60 TAKE ONE TABLET BY MOUTH TWICE A DAY TAKE ONE TABLET BY MOUTH TWICE A DAY SOLD: 10/06/2020 [facility] 25 mg 10/04/2020 12:00:00 AM EST tablet 60 TAKE ONE TABLET BY MOUTH TWICE A DAY TAKE ONE TABLET BY MOUTH TWICE A DAY SOLD: 01/26/2021 [facility] 25 mg 10/04/2020 12:00:00 AM EST tablet 60 TAKE ONE TABLET BY MOUTH TWICE A DAY TAKE ONE TABLET BY MOUTH TWICE A DAY SOLD: 03/28/2021 [facility] 0.4 mg 09/06/2020 12:00:00 AM EST capsule 30 TAKE ONE CAPSULE BY MOUTH EVERY DAY AT BEDTIME TAKE ONE CAPSULE BY MOUTH EVERY DAY AT BEDTIME SOLD: 020 [facility] 0.4 mg 09/06/2020 12:00:00 AM EST capsule 30 TAKE ONE CAPSULE BY MOUTH EVERY DAY AT BEDTIME TAKE ONE CAPSULE BY MOUTH EVERY DAY AT BEDTIME SOLD: 021 [facility] 0.4 mg 09/06/2020 12:00:00 AM EST capsule 30 TAKE ONE CAPSULE BY MOUTH EVERY DAY AT BEDTIME TAKE ONE CAPSULE BY MOUTH EVERY DAY AT BEDTIME SOLD: 021 [facility] 0.4 mg 09/06/2020 12:00:00 AM EST capsule 30 TAKE ONE CAPSULE BY MOUTH EVERY DAY AT BEDTIME TAKE ONE CAPSULE BY MOUTH EVERY DAY AT BEDTIME SOLD: 021 [facility] 80 mg 09/06/2020 12:00:00 AM EST tablet 30 TAKE ONE TABLET BY MOUTH EVERY DAY TAKE ONE TABLET BY MOUTH EVERY DAY SOLD: 10/06/2020 [facility] 0.4 mg 09/06/2020 12:00:00 AM EST capsule 30 TAKE ONE CAPSULE BY MOUTH EVERY DAY AT BEDTIME TAKE ONE CAPSULE BY MOUTH EVERY DAY AT BEDTIME SOLD: 021 [facility] 80 mg 09/06/2020 12:00:00 AM EST tablet 30 TAKE ONE TABLET BY MOUTH EVERY DAY TAKE ONE TABLET BY MOUTH EVERY DAY SOLD: 01/26/2021 [facility] 80 mg 09/06/2020 12:00:00 AM EST tablet 30 TAKE ONE TABLET BY MOUTH EVERY DAY TAKE ONE TABLET BY MOUTH EVERY DAY SOLD: 09/08/2020 [facility] 0.4 mg 09/06/2020 12:00:00 AM EST capsule 30 TAKE ONE CAPSULE BY MOUTH EVERY DAY AT BEDTIME TAKE ONE CAPSULE BY MOUTH EVERY DAY AT BEDTIME SOLD: [facility] 80 mg 09/06/2020 12:00:00 AM EST tablet 30 TAKE ONE TABLET BY MOUTH EVERY DAY TAKE ONE TABLET BY MOUTH EVERY DAY SOLD: 11/05/2020 [facility] 80 mg 09/06/2020 12:00:00 AM EST tablet 30 TAKE ONE TABLET BY MOUTH EVERY DAY TAKE ONE TABLET BY MOUTH EVERY DAY SOLD: 02/27/2021 [facility] 80 mg 09/06/2020 12:00:00 AM EST tablet 30 TAKE ONE TABLET BY MOUTH EVERY DAY TAKE ONE TABLET BY MOUTH EVERY DAY SOLD: 12/28/2020 [facility] 0.8 mg 07/09/2020 12:00:00 AM [...] ONE TABLET BY MOUTH EVERY DAY SOLD: 12/28/2020 [facility] 0.8 mg 07/09/2020 12:00:00 AM EDT tablet 30 TAKE ONE TABLET BY MOUTH EVERY DAY TAKE ONE TABLET BY MOUTH EVERY DAY SOLD: 11/05/2020 [facility] 0.8 mg 07/09/2020 12:00:00 AM [...] TWICE A DAY SOLD: 08/11/2020 [facility] 25 mg 04/10/2020 12:00:00 AM EDT tablet 60 TAKE ONE TABLET BY MOUTH TWICE A DAY TAKE ONE TABLET BY MOUTH TWICE A DAY SOLD: 05/13/2020 [facility] 80 mg 03/13/2020 12:00:00 AM EDT tablet 30 TAKE ONE TABLET BY MOUTH EVERY DAY TAKE ONE TABLET BY MOUTH EVERY DAY SOLD: 06/12/2020 [facility] 80 mg 03/13/2020 12:00:00 AM EDT tablet 30 TAKE ONE TABLET BY MOUTH EVERY DAY TAKE ONE TABLET BY MOUTH EVERY DAY SOLD: 07/11/2020 [facility] 0.4 mg 03/13/2020 12:00:00 AM [...] MOUTH EVERY DAY SOLD: 06/12/2020 [facility] 0.8 mg 01/14/2020 12:00:00 AM EDT tablet 30 TAKE ONE TABLET BY MOUTH EVERY DAY TAKE ONE TABLET BY MOUTH EVERY DAY SOLD: 05/13/2020 [facility] Insurance Providers Payer name Policy type / Coverage type Policy ID Covered alliance party ID Covered alliance party's relationship to marina Policy [place] Plan Information MEDICARE [id number] SP [id number] MEDICARE [id number] SP [id number] A MEDICARE A [id number] Self [id number] A MEDICARE 4 [id number] A Medicare [place] Primary [id number] Self [id number] MEDICAID M [id number] Self [id number] OTHER B TRANSPLANT Self TRANSPLAN T MEDICAID [id number] SP [id number] EMEDNY [id number] SP [id number] MEDICARE -O/P [id number] 18 [id number] MEDICAID [id number] SP [id number] MEDICAID [place] 3 [id number] SELF PAY 2 UNAVAILABLE 1 UNAVAILA BLE MEDICAID - O/P EMERGENCY ROOM [id number] 18 [id number] MEDICARE C [id number] S [id number] E50 MEDICAID M [id number] S [id number] MEDICAID - O/P EMERGENCY ROOM [id number] 18 [id number] MEDICARE PART A-O/P [id number] MEDICARE C [id number] S [id number] A Medicaid [place] Medigap Part B [id number] Self [id number] Medicare Dme Supplies Medigap Part B [id number] Self [id number] MEDICAID-O/P [id number] Problems, Conditions, and Diagnoses No Information Surgeries/Procedures No Information Results ID Date Data Source [id number] 10/23/2020 06:36:00 PM EST [facility] Name Value Range Interpretation Code Description Data Lulu rce(s) Supporting Document(s) SARS coronavirus 2 RNA [Presence] in Res piratory specimen by ANEESH with probe detection NEGATIVE [facility] This lab was ordered by [facility] a nd reported by [facility] Procedure Social History No Information Vital Signs ID Date Data Source UNK Name Value Range Interpretation Code Description Data Source(s) Systolic blood pressure 129 mm[Hg] 129 mm[Hg] [facility]) Diastolic blood pressure 78 mm[Hg] 78 mm[Hg] [facility]) Body height 61 [in_i] 61 [in_i] [facility] ([facility]) 5'1" Body weight 232.00 [lb_av] 232.00 [lb_av] [facility] ([facility]) Body mass index (BMI) [Ratio] 43.8 kg/m2 43.8 k g/m2 [facility] ([facility]) [place] body weight 112 [lb_av] 112 [lb_av[facility] Body weight 105.235 kg 105.235 kg [facility] ([facility]) Body surface area Derived from formula 2.01 m2 2.01 m2 [facility] ([facility]) Systolic blood pressure 112 mm[Hg] 112 mm[Hg] [facility] ([facility]) Diastolic blood pressure 72 mm[Hg] 72 mm[Hg] [facility] ([facility]) Body height 61 [in_i] 61 [in_i] [facility] ([facility]) 5'1" Body weight 233.00 [lb_av] 233.00 [lb_av] [facility] ([facility]) Stated per pt. Body mass index (BMI) [Ratio] 44.0 kg/m2 44.0 k g/m2 [facility] ([facility]) [place] body weight 112 [lb_av] 112 [lb_av] [facility] ([facility] Body weight 105.689 kg 105.689 kg [facility] ([facility]) Body surface area Derived from formula 2.02 m2 2.02 m2 [facility] ([facility])
[2021-07-05] VITALS (11 sets, daily range): BP systolic 102–134; BP diastolic 50–69
--- OUTSIDE RECORDS SUMMARY | 2021-07-05 03:48 | CCD ---
Author Author [facility] Organization [facility] Address Unknown Phone Unavailable Care Team Providers Care Grocery Carrier Name Role Phone BRYDEN, A STANLEY DO [...] is protected by Article 27-F of the [facility] Public Health law. If you continue you may have access to information: Regarding HIV / AIDS; Provided by facilities licensed or operated by the [facility] Office of Mental Health; or Provided by the [facility] Office for People With Developmental Disabilities. If such information is present, then the following [facility] mandated warning applies: This information has [...] law may result in a fine or shelter sentence or both. A general authorization for the release of medical or other information is NOT sufficient authorization for further disc losure. Family History Family Member Name Family Member Gender Family Member Status Date o f Status Description Data Source(s) Unknown Male Problem MED[facility] ([facility] ) Encounters Encounter Providers Location Date Indications Data Source(s ) Outpatient Attender: STANLEY Marshall/René/Severino/Grabiel ndray 11/02/2020 02:00:00 PM EST [facility] ([facility] Medications Medication Brand Name Start Date [...] BY MOUTH TWICE A DAY SOLD: 05/13/2020 [facility] 80 mg 03/13/2020 12:00:00 AM EDT [...] to marina Policy [place] Plan Information MEDICARE 4 [id number] A MEDICARE [id number] SP [id number] A Medicare [place] Medicare Primary [id number] Self [id number] MEDICARE A [id number] Self [id number] A MEDICARE [id number] SP [id number] E50 MEDICAID M [id number] Self [id number] OTHER B TRANSPLANT Self TRANSPLAN T [facility] MEDICAID [id number] SP [id number] Q MEDICAID [id number] SP [id number] EMEDNY [id number] SP [id number] MEDICAID [id number] SP [id number] MEDICAID [facility] 3 [id number] Q SELF PAY 2 UNAVAILABLE 1 UNAVAILA BLE MEDICAID - O/P EMERGENCY ROOM [id number] 18 [id number] MEDICARE C [id number] S [id number] E50 MEDICAID M [id number] S [id number] MEDICAID - O/P EMERGENCY ROOM [id number] 18 [id number] MEDICARE PART A-O/P [id number] 18 [id number] MEDICARE C [id number] S [id number] A Medicaid [facility] Part B [id number] Self [id number] Medicare Dme Supplies Medigap Part B [id number] Self [id number] MEDICAID-O/P [id number] 18 [id number] MEDICARE -O/P [id number] 18 [id number] Problems, Conditions, and Diagnoses No Information Surgeries/Procedures No Information Results ID Date Data Source [id number] 10/23/2020 06:36:00 PM EST [facility] Name Value Range Interpretation Code Description Data Lulu rce(s) Supporting Document(s) SARS coronavirus 2 RNA [Presence] in Res piratory specimen by ANEESH with probe detection NEGATIVE [facility] This lab was ordered by [facility] a nd reported by [facility]. Procedure Social History No Information Vital Signs ID Date Data Source UNK Name Value Range Interpretation Code Description Data Source(s) Systolic blood pressure 129 mm[Hg] 129 mm[Hg] [facility] ([facility]) Diastolic blood pressure 78 mm[Hg] 78 mm[Hg] [facility] ([facility]) Body height 61 [in_i] 61 [in_i] [facility] ([facility]) 5'1" Body weight 232.00 [lb_av] 232.00 [lb_av] [facility] Body mass index (BMI) [Ratio] 43.8 kg/m2 43.8 k g/m2 [facility]) [place] body weight 112 [lb_av] 112 [lb_av] [facility] Body weight 105.235 kg 105.235 kg [facility] ([facility]) Body surface area Derived from formula 2.01 m2 2.01 m2 [facility] ([facility]) Systolic blood pressure 112 mm[Hg] 112 mm[Hg] [facility] ([facility]) Diastolic blood pressure 72 mm[Hg] 72 mm[Hg] [facility] ([facility]) Body height 61 [in_i] 61 [in_i] [facility] ([facility]) 5'1" Body weight 233.00 [lb_av] 233.00 [lb_av] [facility] ([facility]) Stated per pt. Body mass index (BMI) [Ratio] 44.0 kg/m2 44.0 k g/m2 [facility] ([facility]) [place] body weight 112 [lb_av] 112 [lb_av] [facility] ([facility]) Body weight 105.689 kg 105.689 kg [facility] ([facility]) Body surface area Derived from formula 2.02 m2 2.02 m2 [facility] ([facility])
[2021-07-05 04:20] LABS: BASO # 0.1 10^3/uL (0.0-0.2); BASO % 0.6 % (0.0-1.0); EOS # 0.4 10^3/uL (0.0-0.5); EOS % 4.5 % (0.0-3.0); HEMATOCRIT 23.2 % (42.0-52.0); HEMOGLOBIN 7.4 g/dl (13.5-17.5); LYMPH # 2.1 10^3/uL (1.5-5.0); LYMPH % 21.5 % (24.0-44.0); MEAN CORPUSCULAR HEMOGLOBIN 31.5 pg (27.0-33.0); MEAN CORPUSCULAR HGB CONC 31.9 g/dl (32.0-36.5); MEAN CORPUSCULAR VOLUME 98.7 fl (80.0-96.0); MONO # 1.1 10^3/uL (0.0-0.8); MONO % 10.7 % (2.0-8.0); NEUTROPHILS # 6.1 10^3/uL (1.5-8.5); PLATELET COUNT, AUTOMATED 155 10^3/uL (150-450); RED BLOOD COUNT 2.35 10^6/uL (4.30-6.10); WHITE BLOOD COUNT 9.9 10^3/uL (4.0-10.0)
[2021-07-05 04:58] LABS: ALBUMIN 3.2 GM/DL (3.2-5.2); BILIRUBIN,TOTAL 0.5 MG/DL (0.2-1.0); CALCIUM LEVEL 9.3 MG/DL (8.5-10.1); CREATININE FOR GFR 10.5 MG/DL (0.70-1.30); GLOMERULAR FILTRATION RATE 5.5 (>56); MAGNESIUM LEVEL 1.8 MG/DL (1.8-2.4); POTASSIUM SERUM 4.2 MEQ/L (3.5-5.1); TOTAL PROTEIN 6.8 GM/DL (6.4-8.2)
[2021-07-05] MEDS ORDERED: HumaLOG INSULIN (NovoLOG) PER UNIT SC SCH (05:40)
[2021-07-05] MEDS ORDERED: GLUCAGON INJ 1MG VIAL SC PRN (05:40)
[2021-07-05] MEDS ORDERED: DEXTROSE 50% 50 ML SYRINGE IV PRN (05:40)
[2021-07-05] MEDS ORDERED: GLUCOSE 4GM CHEW TABLET PO PRN (05:40)
[2021-07-05] MEDS ORDERED: NS 1,000 ML IV SCH (05:40)
[2021-07-05 06:11] LABS: HEMATOCRIT 21.8 % (42.0-52.0)
[2021-07-05 06:14] LABS: HEMOGLOBIN 6.9 g/dl (13.5-17.5)
[2021-07-05 06:19] LABS: INR 1.09; PROTHROMBIN TIME 14.6 SECONDS (12.7-14.5)
--- OUTSIDE RECORDS SUMMARY | 2021-07-05 06:19 | CCD ---
Author Author [facility] Organization [facility] Address Unknown Phone Unavailable Care Team Providers Care Technical Specialist Name Role Phone BRYDEN, A STANLEY DO [...] is protected by Article 27-F of the [facility] Public Health law. If you continue you may have access to information: Regarding HIV / AIDS; Provided by facilities licensed or operated by the [facility] Office of Mental Health; or Provided by the [facility] Office for People With Developmental Disabilities. If such information is present, then the following [facility] mandated warning applies: This information has been [...] law may result in a fine or prison sentence or both. A general authorization for the release of medical or other information is NOT sufficient authorization for further disc losure. Family History Family Member Name Family Member Gender Family Member Status Date o f Status Description Data Source(s) Unknown Male Problem MEDENT ([facility] ) Encounters Encounter Providers Location Date Indications Data Source(s ) Outpatient Attender: STANLEY Marshall/René/Severino/Grabiel ndray 11/02/2020 02:00:00 PM EST MEDENT ([facility] ) Medications Medication Brand Name Start [...] BY MOUTH TWICE A DAY SOLD: 06/25/2021 [facility] 80 mg 03/26/2021 12:00:00 AM EDT tablet 90 TAKE ONE TABLET BY MOUTH EVERY DAY TAKE ONE TABLET BY MOUTH EVERY DAY SOLD: 03/28/2021 [facility] 0.4 mg 03/26/2021 12:00:00 AM EDT [...] marina Policy [place] Plan Information MEDICARE 4 [id number] A MEDICARE [id number] SP [id number] A Medicare [place] Primary [id number] Self [id number] MEDICARE A [id number] Self [id number] A MEDICARE [id number] SP [id number] E50 MEDICAID M [id number] Self [id number] OTHER B TRANSPLANT Self TRANSPLAN T [facility] MEDICAID [id number] SP [id number] Q MEDICAID [id number] SP [id number] EMEDNY [id number] SP [id number] MEDICAID [id number] SP [id number] MEDICAID [facility] 3 [id number] Q SELF PAY 2 UNAVAILABLE 1 UNAVAILA BLE MEDICAID - O/P EMERGENCY ROOM [id number] 18 [id number] MEDICARE C [id number] S [id number] E50 MEDICAID M [id number] S [id number] MEDICAID - O/P EMERGENCY ROOM [id number] 18 [id number] MEDICARE PART A-O/P [id number] 18 [id number] MEDICARE C [id number] S [id number] A Medicaid [facility] Part B [id number] Self [id number] Medicare Dme Supplies Medigap Part B [id number] Self [id number] MEDICAID-O/P [id number] Q MEDICARE -O/P [id number] 18 [id number] Problems, Conditions, and Diagnoses No Information Surgeries/Procedures No Information Results ID Date Data Source [id number] 10/23/2020 06:36:00 PM EST [facility] Name Value Range Interpretation Code Description Data Lulu rce(s) Supporting Document(s) SARS coronavirus 2 RNA [Presence] in Res piratory specimen by ANEESH with probe detection NEGATIVE [facility] This lab was ordered by [facility] a nd reported by [facility]. Procedure Social History No Information Vital Signs ID Date Data Source UNK Name Value Range Interpretation Code Description Data Source(s) Systolic blood pressure 129 mm[Hg] 129 mm[Hg] [facility] ([facility]) Diastolic blood pressure 78 mm[Hg] 78 mm[Hg] [facility] ([facility]) Body height 61 [in_i] 61 [in_i] [facility] ([facility]) 5'1" Body weight 232.00 [lb_av] 232.00 [lb_av] [facility] Body mass index (BMI) [Ratio] 43.8 kg/m2 43.8 k g/m2 [facility]) [place] body weight 112 [lb_av] 112 [lb_av] [facility] Body weight 105.235 kg 105.235 kg [facility] ([facility]) Body surface area Derived from formula 2.01 m2 2.01 m2 [facility] ([facility]) Systolic blood pressure 112 mm[Hg] 112 mm[Hg] [facility] ([facility]) Diastolic blood pressure 72 mm[Hg] 72 mm[Hg] [facility] ([facility]) Body height 61 [in_i] 61 [in_i] [facility] ([facility]) 5'1" Body weight 233.00 [lb_av] 233.00 [lb_av] [facility] ([facility]) Stated per pt. Body mass index (BMI) [Ratio] 44.0 kg/m2 44.0 k g/m2 [facility] ([facility]) [place] body weight 112 [lb_av] 112 [lb_av] [facility] ([facility] Body weight 105.689 kg 105.689 kg [facility] ([facility]) Body surface area Derived from formula 2.02 m2 2.02 m2 [facility] ([facility])
[2021-07-05 06:20] LABS: PARTIAL THROMBOPLASTIN TIME 30.9 SECONDS (25.9-37.0)
[2021-07-05 06:41] LABS: FERRITIN 1183 NG/ML (26-388); IRON (FE) 62 UG/DL (65-175); PERCENT SATURATION 22.9 % (19.7-50.0); RSV AMPLIFICATION NEGATIVE (NEGATIVE); TOTAL IRON BINDING CAPACITY 271 UG/DL (250-450)
[2021-07-05] MEDS: PANTOPRAZOLE SODIUM 40 MG in D5W MINI-BAG PLUS 50 ML IV SCH ×2 (06:43→10:48)
--- NOTE | 2021-07-05 06:48 | IPNPDOC ---
Text Note Date of Service The patient was seen on 07/05/21. NOTE ATTENDING ADDENDUM time of service 541AM is a 55 yr old who presented w c/o passing BRBPR; he will be admitted for eval of LGIB and anemia. - we will start PPI, pending repeat Hg and consult rest per 's H&P JENNY BALLESTEROS MD Jul 05, 2021 06:48
--- NOTE | 2021-07-05 06:59 | REPVR ---
PROCEDURE INFORMATION: Exam: CT Abdomen And Pelvis Without Contrast Exam date and time: 07/05/2021 5:09 AM Age: 55 years old Clinical indication: Other: Gi bleed; Additional info: Gi bleed, abdominal pain TECHNIQUE: Imaging protocol: Computed tomography of the abdomen and pelvis without contrast. Radiation optimization: All CT scans at this facility use at least one of these dose optimization techniques: automated exposure control; mA and/or kV adjustment per patient size (includes targeted exams where dose is matched to clinical indication); or iterative reconstruction. COMPARISON: CT ABD PELVIS W/O CONTRAST 10/23/2020 5:27 PM FINDINGS: Liver: Normal. No mass. Gallbladder and bile ducts: Cholelithiasis. No evidence of acute cholecystitis. Pancreas: Normal. No ductal dilation. Spleen: Normal. No splenomegaly. Adrenal glands: Normal. No mass. Kidneys and ureters: Bilateral renal atrophy. Small bilateral renal cysts. Stomach and bowel: Unremarkable. No obstruction. No mucosal thickening. Appendix: No evidence of appendicitis. Intraperitoneal space: Unremarkable. No free air. No significant fluid collection. Vasculature: Unremarkable. No abdominal aortic aneurysm. Lymph nodes: Unremarkable. No enlarged lymph nodes. Urinary bladder: Contracted urinary bladder demonstrates marked wall thickening. Reproductive: Unremarkable as visualized. 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 Severe multilevel degenerative disease and facet arthropathy the thoracolumbar spine. Marked stenosis of the spinal canal and neural foramina at multiple levels. Old healed fracture deformities of the bilateral ribs. Soft tissues: Small fat containing umbilical hernia. Status post left inguinal hernia repair. Chronic soft tissue ossifications in bilateral proximal thighs. IMPRESSION: Cholelithiasis. No evidence of acute cholecystitis. Bilateral renal atrophy. No bowel obstruction. Normal appendix. COMMENTS: Consistent with the [employer]'s Incidental Findings Committee white paper (J Am Ricardo Radiol 2018): Any incidental renal lesion less than 1 cm or classified as too small to characterize, or any incidental cystic renal lesion characterized as simple-appearing, is likely benign. No follow-up imaging is recommended for these lesions per consensus recommendations based on imaging criteria. Electronically signed by: Christopher Espinoza On 07/05/2021 06:58:24 AM
[2021-07-05] MEDS: HumaLOG INSULIN (NovoLOG) PER UNIT SC SCH ×2 (07:02→12:00)
[2021-07-05] MEDS ORDERED: HOME MED LIST COMPLETE! XX SCH (07:10)
[2021-07-05] MEDS ORDERED: MOM 30ML SUSPENSION UDC PO PRN (07:20)
[2021-07-05] MEDS ORDERED: MAALOX 30 ML SUSP *UDC PO PRN (07:20)
[2021-07-05] MEDS ORDERED: ACETAMINOPHEN TAB 650MG DOSE (2X325MG) PO PRN (07:20)
[2021-07-05] MEDS ORDERED: LIDOCAINE 1% SDV 5ML VIAL SC PRN (08:15)
[2021-07-05 08:22] LABS: HEMATOCRIT 21.4 % (42.0-52.0); MEAN CORPUSCULAR HEMOGLOBIN 31.3 pg (27.0-33.0); MEAN CORPUSCULAR HGB CONC 31.8 g/dl (32.0-36.5); MEAN CORPUSCULAR VOLUME 98.6 fl (80.0-96.0); PLATELET COUNT, AUTOMATED 141 10^3/uL (150-450); RED BLOOD COUNT 2.17 10^6/uL (4.30-6.10); WHITE BLOOD COUNT 8.9 10^3/uL (4.0-10.0)
[2021-07-05 08:23] LABS: HEMOGLOBIN 6.8 g/dl (13.5-17.5)
[2021-07-05 08:46] LABS: BILIRUBIN,TOTAL 0.4 MG/DL (0.2-1.0); CALCIUM LEVEL 9.3 MG/DL (8.5-10.1); CREATININE FOR GFR 10.7 MG/DL (0.70-1.30); GLOMERULAR FILTRATION RATE 5.3 (>56); MAGNESIUM LEVEL 1.9 MG/DL (1.8-2.4); POTASSIUM SERUM 4.7 MEQ/L (3.5-5.1); TOTAL PROTEIN 6.4 GM/DL (6.4-8.2)
[2021-07-05] MEDS: METOPROLOL TART 25 MG TABLET PO SCH ×2 (09:00→20:40)
--- NOTE | 2021-07-05 09:41 | HPEPDOC ---
[facility] Medical History & Physical Date of Admission Jul 05, 2021 Date of Service: Jul 05, 2021 Primary Care Physician: Raji Gregg MD Attending Physician: JENNY BALLESTEROS MD History and Physical CHIEF COMPLAINT: Bloody stool HISTORY OF PRESENT ILLNESS: is a pleasant 55yo male with notable PMHx of ESRD on hemodialysis (MWF), NIDDMII, chronic degenerative arthritis/rheumatoid arthritis, congenital deformities of all 4 limbs, hypertension, and dyslipidemia who presented to the [facility] ED on 07/04/21 via EMS from the outpatient hemodialysis office complaining of recent bloody stools. Patient reports he has had one episode of bloody stools per day since 07/02. He describes the color of stool ranging between pink to dark or red, and all been associated with bowel movements. He denies any pain with bowel movements associated with the bowel movement/bloody stool, and also denies any lightheadedness or dizziness. He presented for his regular scheduled Friday hemodialysis on 07/04, but reported his recent bloody stools to staff who recommended he be seen in the ED for evaluation; as a result, he did not undergo his regularly Friday scheduled hemodialysis session. Of note, patient did have a similar presentation in October 2020, for which she was admitted and underwent a colonoscopy with Dr. Mcgowan which showed moderate to large nonthrombosed prolapsed external and internal hemorrhoids and 2 small nonbleeding diverticula of the colon. Per documentation from Dr. Mcgowan, the bleeding at that time was thought to be secondary to both internal and external hemorrhoids with outpatient surgical referral should he have frequent rebleeding. In the ED, the patient was vitally stable. His initial hemoglobin was 7.4. A digital rectal exam was performed by the ED provider which showed some visible hemorrhoids but no signs of acute inflammation and there was no tenderness; patient was also quite obviously heme positive grossly. CT abdomen pelvis showed no bowel obstruction nor evidence of acute diverticulitis. There is also bilateral renal atrophy as well as cholelithiasis. Hospitalist service was subsequently consulted and the patient was admitted for further evaluation management of presumed lower GI bleed. PAST MEDICAL HISTORY: End-stage renal disease on hemodialysis that occurs Friday (as noted above, he did not receive his Friday, 07/04 HD session); follows with Dr. Adela Ferreira Congenital deformities of all 4 limbs Hypertension Dyslipidemia Chronic degenerative arthritis/rheumatoid arthritis [id number] diabetes mellitus type 2 Anemia of renal disease History of idiopathic pancreatitis PAST SURGICAL HISTORY: Left arm AV fistula creation Multiple feet surgeries secondary to congenital deformities Bilateral cataract surgery Left ureterotomy and insertion of left ureteral J stent SOCIAL HISTORY: Patient currently lives with his father at home in [facility]. He is generally independent for all activities of daily living and for longer courses of ambulation will use a walker and sometimes even a wheelchair. Patient is a non-smoker Patient does not use any alcohol Patient denies any illicit or IV drug use FAMILY HISTORY: Father: Living; prostate cancer Mother: ; stomach cancer Siblings: Patient has 2 brothers and 4 sisters and is unsure of significant med ical conditions in his siblings. ALLERGIES: Please see below. REVIEW OF SYSTEMS: CONSTITUTIONAL: Denies recent or current fever, chills, night sweats, or unintentional change in weight. HEENT: Denies any recent changes in vision or hearing. CARDIOVASCULAR: Denies chest pain, chest pressure, or palpitations RESPIRATORY: Denies dyspnea, cough, or pleuritic chest pain GASTROINTESTINAL: Reports daily episodes of bloody stools for the past 3 days () as described in HPI. Denies dysphagia or odynophagia. Also denies any abdominal pain/nausea/vomiting/diarrhea. GENITOURINARY: Denies any dysuria, hematuria, or flank pain MUSCULOSKELETAL: Denies any specific myalgias or arthralgias HEMATOLOGIC: Other than the current bleeding per rectum, he denies any other easy bleeding or bruising. LYMPHATIC: Denies any new lumps or bumps. HOME MEDICATIONS: Please see below. PHYSICAL EXAMINATION: VITAL SIGNS: Please see below GENERAL APPEARANCE: Very pleasant male lying on his left side in ED bed. Alert and oriented x3. He does not appear to be in any acute distress. HEENT: Normocephalic, atraumatic. Wearing very thick eyeglasses. Anisocoria with pupils that are reactive to light and accommodation. No significant conjunctival pallor. Noninjected, anicteric sclera. Neck: Wide. No lymphadenopathy appreciated. CARDIOVASCULAR: Regular rate, regular rhythm. Normal S1, S2. Very distant heart sounds making difficult to appreciate for any significant murmurs or rubs LUNGS: No adventitious breath sounds are appreciated. Patient had good respiratory effort with symmetric chest expansion. Breathing room air with no visualized accessory muscle use. ABDOMEN: Soft, nontender and nondistended. Obese. There is a well-healed vertical incisional scar inferior to the umbilicus. No hepatosplenomegaly is appreciated. Normoactive bowel sounds throughout. No guarding or rigidity appreciated. EXTREMITIES: There are visible congenital structural abnormalities of hands and feet. There is significant bilateral onychomycosis. There is also toeing out of both feet as well as significant bunion of the right foot with associated dry skin. 2+ radial pulses bilaterally NEUROLOGICAL: There is some horizontal nystagmus visualized. Otherwise no gross focal neurologic deficits are appreciated. Nondysarthric speech. Alert and oriented x3. PSYCHIATRIC: Very pleasant mood. Appropriate appearing affect. LABORATORY DATA: Please see below. IMAGING: CT abdomen pelvis without contrast, 07/05/2021 FINDINGS: Liver: Normal. No mass. Gallbladder and bile ducts: Cholelithiasis. No evidence of acute cholecystitis. Pancreas: Normal. No ductal dilation. Spleen: Normal. No splenomegaly. Adrenal glands: Normal. No mass. Kidneys and ureters: Bilateral renal atrophy. Small bilateral renal cysts. Stomach and bowel: Unremarkable. No obstruction. No mucosal thickening. Appendix: No evidence of appendicitis. Intraperitoneal space: Unremarkable. No free air. No significant fluid collection. Vasculature: Unremarkable. No abdominal aortic aneurysm. Lymph nodes: Unremarkable. No enlarged lymph nodes. Urinary bladder: Contracted urinary bladder demonstrates marked wall thickening. Reproductive: Unremarkable as visualized. 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 Severe multilevel degenerative disease and facet arthropathy the thoracolumbar spine. Marked stenosis of the spinal canal and neural foramina at multiple levels. Old healed fracture deformities of the bilateral ribs. Soft tissues: Small fat containing umbilical hernia. Status post left inguinal hernia repair. Chronic soft tissue ossifications in bilateral proximal thighs. IMPRESSION: Cholelithiasis. No evidence of acute cholecystitis. Bilateral renal atrophy. No bowel obstruction. Normal appendix. MICROBIOLOGY: Please see below. ASSESSMENT & PLAN: This is a pleasant 55-year-old male w/ h/o ESRD on HD (MWF), [id number] diabetes mellitus type 2, congenital deformities of the limbs, chronic degenerative arthritis/rheumatoid arthritis, hypertension, d yslipidemia who presented to the ED with chief complaint of bloody stool per rectum. #Acute blood loss anemia likely secondary to lower GI bleed -Patient reports daily bloody stools for the past 3 days (); he denies any associated pain with the bloody bowel movements, overall abdominal p ain, lightheadedness, or falls. -Patient presented to his hemodialysis on 07/04 but due to reports of his bloody stool, he never got the dialysis performed and instead was transported via EMS to the ED. -Of note, patient does have a history of hemorrhoids and had a similar presentation in October 2020. A colonoscopy was done on 10/26/2020 which showed significant nonthrombosed internal and external hemorrhoids that were believed to be the source of his bleeding. Patient was recommended to follow-up with general surgery should he have rebleeding. -In the setting of his ESRD, there is also concern for possible AVMs -Patient has been hemodynamically stable since admission; he does not appear to be actively bleeding at time of admission -Day team may consider with the patient needs GI consultation for inpatient colonoscopy versus outpatient follow-up -Initial hemoglobin of 7.4 upon presentation (of note patient has a baseline hemoglobin of about 910 which is thought to be secondary to anemia of chronic renal disease) -we will trend serial H&H every 6 hours; Iron panel ordered; Orthostats ordered: -Placed on a clear liquid diet with gentle IV fluid hydration -Coags were ordered along with a type and screen by the ED; upon admission, consent for blood products was signed -Protonix IV ordered, as well as placement of 2 large-bore IVs #End-stage renal disease on hemodialysis (M WF) -Patient receives hemodialysis Friday and Friday -He did not receive his Friday, 07/04 hemodialysis as due to his reported bloody stools decision was made to transfer him via EMS to the ED for further evaluation -He will need inpatient dialysis during this admission and nephrology will need to be consulted #Rsk-mztxbyy-jbiqfqvqa diabetes mellitus type 2 Patient is on a clear liquid diet in the setting of his suspected lower GI bleed -FSBS and SSI every 6 hours #Chronic anemia likely secondary to chronic renal disease -Patient's baseline hemoglobin on review appears to be about 910 -His presenting hemoglobin was 7.4 likely reduced in the setting of his lower GI bleed -Trending H&H #Hypertension -Patient has been hemodynamically stable since presentation His home Lopressor was continued #Hyperlipidemia Home simvastatin continued #BPH Home Flomax continued #DVT prophylaxis: Teds and sequentials in the setting of lower GI bleed CODE STATUS: Full code Disposition: Patient will be admitted for suspected lower GI bleed with trending of H&H on clear liquid diet with IV Protonix. Vital Signs Vital Signs Date Time Temp Pulse Resp B/P (MAP) Pulse Ox O2 Delivery O2 Flow Rate FiO2 07/05/21 09:04 97.1 67 20 110/58 95 Room Air Laboratory Data Labs 24H Laboratory Tests 2 07/05/21 04:07: Immature Granulocyte % (Auto) 0.7, Neutrophils (%) (Auto) 62.0, Lymphocytes (%) (Auto) 21.5L, Monocytes (%) (Auto) 10.7H, Eosinophils (%) (Auto) 4.5H, Basophils (%) (Auto) 0.6, Neutrophils # (Auto) 6.1, Lymphocytes # (Auto) 2.1, Monocytes # (Auto) 1.1H, Eosinophils # (Auto) 0.4, Basophils # (Auto) 0.1, Nucleated Red Blood Cells % (auto) 0.0, Anion Gap 12, Glomerular Filtration Rate 5.5L, Calcium Level 9.3, Magnesium Level 1.8, Total Bilirubin 0.5, Aspartate Amino Transf (AST/SGOT) 24, Alanine Aminotransferase (ALT/SGPT) 24, Alkaline Phosphatase 83, Total Protein 6.8, Albumin 3.2, Albumin/Globulin Ratio 0.9 07/05/21 05:52: Prothrombin Time 14.6H, Prothromb Time International Ratio 1.09, Activated Partial Thromboplast Time 30.9, Iron Level 62L, Total Iron Binding Capacity 271, Transferrin % Saturation 22.9, Ferritin 1183H, Coronavirus (COVID-19)(PCR) NEGATIVE, Influenza Type A (RT-PCR) NEGATIVE, Influenza Type B (RT-PCR) NEGATIVE, Respiratory Syncytial Virus (PCR) NEGATIVE 07/05/21 07:57: Nucleated Red Blood Cells % (auto) 0.0, Anion Gap 11, Glomerular Filtration Rate 5.3L, Calcium Level 9.3, Magnesium Level 1.9, Total Bilirubin 0.4, Aspartate Amino Transf (AST/SGOT) 23, Alanine Aminotransferase (ALT/SGPT) 22, Alkaline Phosphatase 79, Total Protein 6.4, Albumin 3.0L, Albumin/Globulin Ratio 0.9 CBC/BMP Laboratory Tests 07/05/21 04:07 07/05/21 05:52 07/05/21 07:57 Home Medications Scheduled Folic Acid/Vit B Complex and C (Brittany-Madelyn Tablet) 0.8 Mg Tablet, 0.8 MG PO QHS Lidocaine/Prilocaine (Lidocaine-Prilocaine Cream) 2.5%/2.5% Cream..g., 1 APLCT TOP HD USE ON DIALYSIS PORT MON/FRI/FRI Metoprolol Tartrate (Metoprolol Tartrate) 25 Mg Tablet, 25 MG PO BID Simvastatin (Zocor) 80 Mg Tablet, 80 MG PO QHS Tamsulosin HCl (Flomax) 0.4 Mg Capsule, 0.4 MG PO QHS Scheduled PRN Docusate Sodium (Dok) 100 Mg Capsule, 100 MG PO BID PRN for CONSTIPATION Allergies Coded Allergies: No Known Allergies (Unverified , 10/23/20) ROSELIA CAMPBELL D.O. Jul 05, 2021 09:41 JENNY BALLESTEROS MD Jul 08, 2021 03:18
[2021-07-05 11:24] LABS: VITAMIN B12 LEVEL 635 PG/ML (247-911)
[2021-07-05 11:39] LABS: FOLATE > 24.0 NG/ML (>5.4)
[2021-07-05 13:53] LABS: HEMATOCRIT 28.2 % (42.0-52.0); HEMOGLOBIN 9.2 g/dl (13.5-17.5)
--- NOTE | 2021-07-05 15:03 | IPNPDOC ---
Text Note Date of Service The patient was seen on 07/05/21. NOTE Subjective: Patient 55-year-old male presented to the hospital last night for bright red blood per rectum. Patient has a history of end-stage renal disease on hemodialysis and presented dialysis yesterday but did not want to get it because he was having the bright red blood per rectum and did not want make a mess of the chair. Patient presented to the hospital and was found to be anemic below his baseline. Patient ended up getting repeat H&H prior to the day shift coming on and if this was found to be below 7. The decision was made to transfuse the patient 2 units. Patient was doing well at the time of my evaluation did not have any complaints at this time. Patient states that the blood had started a few days ago then stopped and then started again yesterday. Patient states that he is not having any pain in his abdomen nor pain with bowel movements. Review of systems: General: Patient denies fevers HEENT: Patient denies headaches Cardiovascular: Patient denies chest pain Respiratory: Patient denies shortness of breath, cough GI: Patient denies abdominal pain, nausea, vomiting, diarrhea : Patient denies increased frequency or pain with urination Extremities: Patient denies swelling or pain in extremities Neurological: Patient denies numbness or tingling in legs Physical exam: Vitals: See below General: Alert and oriented male patient who was sitting up in bed when I walked in. Patient not appear to be in any acute distress. HEENT: Normocephalic, atraumatic, moist mucous membranes. Neck: No lymphadenopathy or thyromegaly Cardiac: Regular rate and rhythm, no murmurs, normal S1, normal S2 Pulm: Clear to auscultation bilaterally. No wheezes, rhonchi, rales Abd: Nondistended, nontender to palpation, normal bowel sounds Ext: No edema bilateral lower extremities Labs: See below Imaging: No new imaging is been performed Assessment/plan: 55-year-old male with past medical history of ESRD on hemodialysis on a Friday, Friday, Friday schedule, ywk-zsktqxv-dqkuwkngn diabetes, congenital deformities of limbs, chronic degenerative arthritis/rheumatoid arthritis, hypertension, dyslipidemia presented to ED with chief complaint of bloody stool per rectum 1. Acute blood loss anemia secondary to lower GI bleed. Patient has had bloody stools for the past 3 days. Patient's H&H drop below 7. Patient was transfused 2 units of blood and his repeat H&H has recovered. We will continue to monitor. Patient had colonoscopy done I did speak with gastroenterology who states that because the patient is hemodynamically stable at this time, and just recently had a colonoscopy, the patient will be monitored. Once patient's hemoglobin is stable and the bloody bowel movements have ceased, patient can be discharged. 2. End-stage renal disease. I spoke with nephrology who stated that they will attempt to dialyze the patient today. 3. Possible history of diabetes. Patient's blood sugars have been within the normal range. Patient states that he does not have diabetes and is not on any medication for this. Insulin has been stopped at this time. 4. Chronic anemia likely secondary to chronic renal disease. Baseline hemoglobin around 9-10. We will trend H&H. 5. Hypertension. Patient is hemodynamically stable. Continue home Lopressor. 6. Hyperlipidemia. Continue home simvastatin. 7. BPH. Continue home Flomax. DVT Prophylaxis: Teds and sequential Disposition: Pending improvement and stabilization of the patient's H&H. VS,Lalobone, I+O VS, Mounikae, I+O Laboratory Tests 07/05/21 04:07 07/05/21 05:52 07/05/21 07:57 07/05/21 13:21 Vital Signs Date Time Temp Pulse Resp B/P (MAP) Pulse Ox O2 Delivery O2 Flow Rate FiO2 07/05/21 12:30 97.0 70 18 134/69 96 Room Air ANNE MARIE RUIZ Jul 05, 2021 15:02
[2021-07-05 17:47] LABS: HEMATOCRIT 28.3 % (42.0-52.0); HEMOGLOBIN 9.2 g/dl (13.5-17.5)
[2021-07-05] MEDS: TAMSULOSIN 0.4 MG CAP PO SCH (20:38)
[2021-07-05] MEDS: SIMVASTATIN 40 MG TAB PO SCH (20:38)
[2021-07-05] MEDS: PANTOPRAZOLE 40MG VIAL (C9113 PER 1) IV SCH (20:39)
[2021-07-06] VITALS (7 sets, daily range): BP systolic 102–140; BP diastolic 55–80
[2021-07-06 00:23] LABS: HEMATOCRIT 26.1 % (42.0-52.0); HEMOGLOBIN 8.6 g/dl (13.5-17.5); MEAN CORPUSCULAR HEMOGLOBIN 31.5 pg (27.0-33.0); MEAN CORPUSCULAR VOLUME 95.6 fl (80.0-96.0); PLATELET COUNT, AUTOMATED 126 10^3/uL (150-450); RED BLOOD COUNT 2.73 10^6/uL (4.30-6.10); WHITE BLOOD COUNT 7.7 10^3/uL (4.0-10.0)
[2021-07-06 04:31] LABS: HEMATOCRIT 25.3 % (42.0-52.0); HEMOGLOBIN 8.2 g/dl (13.5-17.5); MEAN CORPUSCULAR HEMOGLOBIN 30.8 pg (27.0-33.0); MEAN CORPUSCULAR HGB CONC 32.4 g/dl (32.0-36.5); MEAN CORPUSCULAR VOLUME 95.1 fl (80.0-96.0); PLATELET COUNT, AUTOMATED 131 10^3/uL (150-450); RED BLOOD COUNT 2.66 10^6/uL (4.30-6.10); WHITE BLOOD COUNT 7.6 10^3/uL (4.0-10.0)
[2021-07-06 05:04] LABS: CALCIUM LEVEL 8.2 MG/DL (8.5-10.1); CREATININE FOR GFR 7.36 MG/DL (0.70-1.30); GLOMERULAR FILTRATION RATE 8.2 (>56); MAGNESIUM LEVEL 1.8 MG/DL (1.8-2.4); POTASSIUM SERUM 4.5 MEQ/L (3.5-5.1)
[2021-07-06] MEDS: METOPROLOL TART 25 MG TABLET PO SCH ×2 (09:00→20:22)
--- NOTE | 2021-07-06 09:21 | CR ---
INITIAL INPATIENT CONSULTATION DATE: 07/05/2021 REQUESTING PHYSICIAN: Dr. Bandar Contreras CONSULTING PHYSICIAN: Dr. Velma Griffiths REASON FOR CONSULTATION: Management of end-stage renal disease and hemodialysis. CHIEF COMPLAINT: Patient was sent from the dialysis center because of blood per rectum. HISTORY OF PRESENT ILLNESS: Adis Qureshi is a 55-year-old male with a past medical history of end-stage renal disease on hemodialysis every Friday, Friday, Friday, he missed his hemodialysis yesterday. He has congenital limb deformities, history of rectal bleed secondary to hemorrhoids, he was previously hospitalized because of bleeding hemorrhoids as well, and multiple other comorbidities as mentioned below. He was sent to the ER because of multiple episodes of bright red blood per rectum. He refused to have hemodialysis as an outpatient and he was brought to the Emergency Room. In the Emergency Room, patient was found to have anemia with hemoglobin of 6.9. Patient was admitted under the hospitalist service. Nephrology service was called for further help of the management of this patient's renal failure. Patient needed my immediate attention. I saw and evaluated the patient at the bedside. He was hemodynamically stable when I saw him. PAST MEDICAL HISTORY: End-stage renal disease on hemodialysis every Friday, Friday, Friday, chronic congenital limb deformities, hypertension, poor vision, hyperlipidemia, chronic degenerative arthritis, non-insulin dependent type 2 diabetic, anemia and end-stage renal disease, history of hemorrhoids and history of idiopathic pancreatitis. PAST SURGICAL HISTORY: Status post left arm AV fistula, multiple surgery of the feet secondary to congenital deformities, bilateral cataract surgeries and history of left ureteral double-J stent placement in the past. FAMILY HISTORY: No significant family history of end-stage renal disease requiring hemodialysis. SOCIAL HISTORY: He lives with his father in [place]. Denies any smoking or illicit drug abuse. ALLERGIES: No known drug allergies. REVIEW OF SYSTEMS: CONSTITUTIONAL: He denies any fevers and chills. EYES: He reports poor vision. ENT: He denies any dysphagia, odynophagia. CARDIOVASCULAR: He denies any chest pain or palpitation. RESPIRATORY: He denies any shortness of breath. GI: He reports rectal bleeding. GENITOURINARY: He denies any dysuria or hematuria. MUSCULOSKELETAL: He reports limb deformities and arthralgias. HEMATOLOGICAL/ONCOLOGICAL: Reports rectal bleeding. CLOTHER IN: Denies any seizures or weakness. All other review of systems is negative. PHYSICAL EXAMINATION: GENERAL: Patient is awake, alert, oriented x3, laying in bed. VITAL SIGNS: Temperature 96.8 degrees Fahrenheit, blood pressure 130/59, pulse 63, respiratory rate 18, saturating 100% on room air. HEAD/NECK: Patient is wearing glasses with a very heavy lens. Mucous membranes are moist. Neck is supple. There is no JVD. CARDIOVASCULAR: S1, S2, regular rate. No edema of the bilateral lower extremities. RESPIRATORY: Chest is clear to auscultation bilaterally. Bilateral equal air entry. No rales or rhonchi. ABDOMEN: Soft, positive bowel sounds, nontender. No organomegaly. MUSCULOSKELETAL: Chronic congenital limb deformities as noted. CLOTHER IN: No focal deficit. Power is 5/5 in all extremities. LABORATORY REVIEW: CBC showed WBC 9.9, hemoglobin 6.9, platelets 155,000. INR was 1.09. BMP showed sodium 138, potassium 4.7, chloride 102, bicarb 26, BUN 47, creatinine 10.7. Iron level 62, transferrin saturation 22.9, ferritin 1,183. IMAGING: CAT scan of the abdomen and pelvis was done, which showed cholelithiasis, no evidence of acute cholecystitis, bilateral renal atrophy, no bowel obstruction, normal appendix. CURRENT INPATIENT MEDICATIONS: Patient's medications were all reviewed by myself. Two units of PRBC transfusion has been ordered. He is on Protonix drip and I.V. normal saline, Tylenol p.r.n., Mylanta p.r.n., Metoprolol Tartrate 25 mg p.o. twice a day, Milk of Magnesia, Protonix 40 mg I.V. twice a day, Simvastatin 80 mg q.h.s. and Flomax 0.4 mg p.o. q.h.s. ASSESSMENT AND PLAN: 1. End-stage renal disease: Patient missed his hemodialysis yesterday, he will be dialyzed today only for 3 hours. He will get some blood transfusion during dialysis. 2. Anemia secondary to renal failure and active bleed: Patient is going to get 2 units of PRBC transfusion, and he will be evaluated by the surgical service for active bleeding. 3. Non-insulin dependent diabetic: Continue insulin sliding scale. 4. Hypertension: Continue current dose of Metoprolol. Blood pressure is controlled. Thank you for involving me in the care of this patient. I shall be happy to follow the patient along with you tomorrow morning. SOREN
[2021-07-06] MEDS: PANTOPRAZOLE 40MG VIAL (C9113 PER 1) IV SCH ×2 (09:40→20:19)
[2021-07-06 12:32] LABS: HEMATOCRIT 25.7 % (42.0-52.0); HEMOGLOBIN 8.4 g/dl (13.5-17.5); MEAN CORPUSCULAR HEMOGLOBIN 31.9 pg (27.0-33.0); MEAN CORPUSCULAR HGB CONC 32.7 g/dl (32.0-36.5); MEAN CORPUSCULAR VOLUME 97.7 fl (80.0-96.0); PLATELET COUNT, AUTOMATED 121 10^3/uL (150-450); RED BLOOD COUNT 2.63 10^6/uL (4.30-6.10); WHITE BLOOD COUNT 7.2 10^3/uL (4.0-10.0)
--- NOTE | 2021-07-06 15:44 | IPNPDOC ---
Text Note Date of Service The patient was seen on 07/06/21. NOTE Subjective: Patient 55-year-old male presented to hospital with bright red blood per rectum. Patient was given 2 units of blood and hemoglobin had recovered into the 9 range. Patient's chronic ranges from 9-10. Patient's hemoglobin did drop about 8.4. Patient denies any abdominal pain. Patient says he has noticed some brown stool with some red blood around the stool. Patient does have a history of hemorrhoids. Patient is otherwise feeling well. Review of systems: General: Patient denies fevers HEENT: Patient denies headaches Cardiovascular: Patient denies chest pain Respiratory: Patient denies shortness of breath, cough GI: Patient denies abdominal pain, nausea, vomiting, diarrhea : Patient denies increased frequency or pain with urination Extremities: Patient denies swelling or pain in extremities Neurological: Patient denies numbness or tingling in legs Physical exam: Vitals: See below General: Alert and oriented male patient who was sitting in bed when I walked in. Patient did not appear to be in any acute distress. HEENT: Normocephalic, atraumatic, moist mucous membranes. Neck: No lymphadenopathy or thyromegaly Cardiac: Regular rate and rhythm, no murmurs, normal S1, normal S2 Pulm: Clear to auscultation bilaterally. No wheezes, rhonchi, rales Abd: Nondistended, nontender to palpation, normal bowel sounds Ext: No edema bilateral lower extremities Labs: See below Imaging: No new imaging is been performed Assessment/plan: 55-year-old male with past medical history of ESRD on hemodialysis on a Friday, Friday, Friday schedule, [id number] diabetes, congenital deformities of limbs, Crescencio acute degenerative arthritis/rheumatoid arthritis, hypertension, dyslipidemia here to the ED with chief complaint of bloody stool per rectum. 1. Acute blood loss anemia secondary to lower GI bleed. Patient has had bloody stools for the past 3 days. Patient's H&H drop below 7. Patient was transfused 2 units of blood and his repeat H&H has recovered. We will continue to monitor. I did speak with gastroenterology who stated that since the patient is hemodynamically stable and just recently had a colonoscopy, we can monitor the patient. Once patient's hemoglobin is stable and bloody bowel meds have ceased, patient be discharged. 2. End-stage renal disease. Patient was dialyzed yesterday and is doing well. Appreciate nephrology's help treating the patient. 3. Possible history of diabetes. Patient blood sugars been in the normal range. Sliding scale has been discontinued at this time. 4. Chronic anemia likely secondary to chronic renal disease. Baseline hemoglobin around 9-10. Trend H&H. 5. Hypertension. Patient is hemodynamically stable. Continue home Lopressor. 6. Hyperlipidemia. Continue home simvastatin. 7. BPH. Continue home Flomax DVT Prophylaxis: Teds and sequentials Disposition: Pending improvement and stabilization patient is H&H. VS,Fishbone, I+O VS, Fishbone, I+O Laboratory Tests 07/05/21 17:28 07/05/21 23:51 07/06/21 04:16 07/06/21 11:58 Vital Signs Date Time Temp Pulse Resp B/P (MAP) Pulse Ox O2 Delivery O2 Flow Rate FiO2 07/06/21 12:00 97.0 69 18 121/63 (82) 97 Room Air I&O- Last 24 Hours up to 6 AM 07/06/21 06:00 Intake Total 1730 ml Output Total 1000 ml Balance 730 ml ANNE MARIE RUIZ DO Jul 06, 2021 15:44
[2021-07-06 18:49] LABS: HEMATOCRIT 25.8 % (42.0-52.0); HEMOGLOBIN 8.4 g/dl (13.5-17.5); MEAN CORPUSCULAR HEMOGLOBIN 31.5 pg (27.0-33.0); MEAN CORPUSCULAR HGB CONC 32.6 g/dl (32.0-36.5); MEAN CORPUSCULAR VOLUME 96.6 fl (80.0-96.0); PLATELET COUNT, AUTOMATED 122 10^3/uL (150-450); RED BLOOD COUNT 2.67 10^6/uL (4.30-6.10); WHITE BLOOD COUNT 6.4 10^3/uL (4.0-10.0)
[2021-07-06] MEDS: SIMVASTATIN 40 MG TAB PO SCH (20:21)
[2021-07-06] MEDS: TAMSULOSIN 0.4 MG CAP PO SCH (20:21)
--- NOTE | 2021-07-06 23:51 | IPNPDOC ---
Subjective CC/HPI The patient is a 55-year-old male admitted with a reason for visit of Lower Gi Bleed. Events since last encounter Pt was seen at bedside in AM, He was dialyzed yesterday. PRBC was given and 1L fluid was removed. Hb stable at 8.2. General: Denies: Chills, Night Sweats Constitutional: Denies: Chills, Fever Eyes: Denies: Pain, Vision change ENT: Denies: Head Aches, Ear Pain Skin: Denies: Rash, Lesions Pulmonary: Denies: Dyspnea, Cough Cardiovascular: Denies: Chest Pain, Palpitations Gastrointestinal: Denies: Nausea, Vomiting Genitourinary: Denies: Dysuria, Frequency Hematologic: Denies: Bruising, Bleeding Excessively Musculoskeletal: Denies: Neck Pain, Back Pain Neurological: Denies: Weakness, Numbness Psych: Reports: Mood Normal Objective Physical Examination General Exam: Alert, No Acute Distress EYE EXAM: PERRLA, Conjunctiva & lids normal ENT EXAM: Atraumatic, Mucous membr. moist/pink, Pharynx Normal Neck Exam: Supple; No: JVD Heart Exam: Rate Normal; No: Murmurs, Rubs ABDOMEN EXAM: Normal bowel sounds, Soft; No: Tenderness Extremity Exam: Other (Congenital limb deformities); No: Clubbing Skin Exam: Nl turgor and temperature; No: Rash, Breakdown Neuro Exam: Normal Speech, Strength at 5/5 X4 ext Psych Exam: Mental status NL, Mood NL, Oriented x 3 Vital Signs/I&O Vital Signs Date Time Temp Pulse Resp B/P (MAP) Pulse Ox O2 Delivery O2 Flow Rate FiO2 07/06/21 20:22 67 140/80 07/06/21 20:00 97.3 17 98 Room Air I&O- Last 24 Hours up to 6 AM 07/06/21 06:00 Intake Total 1730 ml Output Total 1000 ml Balance 730 ml Laboratory Data Labs 24H Laboratory Tests 2 07/05/21 23:51: Nucleated Red Blood Cells % (auto) 0.0 07/06/21 04:16: Nucleated Red Blood Cells % (auto) 0.0, Anion Gap 9, Glomerular Filtration Rate 8.2L, Calcium Level 8.2L, Magnesium Level 1.8 07/06/21 11:58: Nucleated Red Blood Cells % (auto) 0.0 07/06/21 18:37: Nucleated Red Blood Cells % (auto) 0.0 CBC/BMP Laboratory Tests 07/05/21 23:51 07/06/21 04:16 07/06/21 11:58 07/06/21 18:37 Current Medications Current Medications Medications (Trade) Dose Ordered Sig/Melyssa Route PRN Reason Start Time Stop Time Status Last Admin Dose Admin Acetaminophen (Tylenol Tab) 650 mg Q4H PRN PO MILD PAIN or TEMP > 101 07/05/21 07:20 Al Hydrox/Mg Hydrox/Simethicone (Mylanta) 30 ml DAILY PRN PO DYSPEPSIA 07/05/21 07:20 Dextrose (Dextrose 50%) 25 ml ASDIRECTED PRN IV SEE LABEL COMMENTS 07/05/21 05:40 Glucagon (Glucagon) 1 mg ASDIRECTED PRN SC SEE LABEL COMMENTS 07/05/21 05:40 Glucose (Glucose) 16 GM ASDIRECTED PRN PO SEE LABEL COMMENTS 07/05/21 05:40 Heparin Sodium (Heparin) Please refer to ... ASDIRECTED XX 07/05/21 08:15 07/06/21 08:14 DC Home Med (Home Med List Complete!) ASDIRECTED XX 07/05/21 07:10 07/05/21 07:37 DC Insulin Human Lispro (HumaLOG INSULIN) See Protocol Table Q6H SC 07/05/21 05:40 07/05/21 05:50 DC Insulin Human Lispro (HumaLOG INSULIN) See Protocol Table Q6H SC 07/05/21 06:00 07/05/21 16:33 DC Lidocaine HCl (Lidocaine 1% Sdv) 0.5 ml ASDIRECTED PRN SC SEE LABEL COMMENTS 07/05/21 08:15 07/06/21 08:14 DC Magnesium Hydroxide (Milk Of Magnesia) 30 ml DAILY PRN PO CONSTIPATION 07/05/21 07:20 Metoprolol Tartrate (Lopressor) 25 mg BID PO 07/05/21 09:00 07/06/21 20:22 Pantoprazole Sodium (Protonix) 40 mg BID IV 07/05/21 21:00 07/06/21 20:19 Pantoprazole Sodium 40 mg/ Dextrose 50 ml @ 10 mls/hr Q5H IV 07/05/21 06:00 07/05/21 16:31 DC 10/14/21 10:48 Simvastatin (Zocor) 80 mg QHS PO 07/05/21 21:00 07/06/21 20:21 Sodium Chloride 1,000 ml @ 70 mls/hr [id number] IV 07/05/21 05:40 07/05/21 16:31 DC 07/05/21 06:43 Tamsulosin HCl (Flomax) 0.4 mg QHS PO 07/05/21 21:00 07/06/21 20:21 Allergies Coded Allergies: No Known Allergies (Unverified , 10/23/20) Assessment/Plan Date Seen The patient was seen on 07/06/21 in AM at bedside. Plan / VTE VTE Prophylaxis Ordered?: No Plan Orders past 48 Hours Orders Type & Screen (07/05/21 03:34) Cbc With Differential (07/05/21 03:47) Complete Comphrensive Metaboli (07/05/21 03:47) Magnesium Level (07/05/21 03:47) Pt & Aptt (07/05/21 05:05) Ct Abd & Pelvis W/O Contrast (07/05/21 05:09) Influenza A/B Rsv Covid Amp (07/05/21 05:29) Ns (Nacl 0.9%) (07/05/21 05:40) D5w Mini-Bag Plus (... W/Pantoprazole So (07/05/21 06:00) Hypoglycemic Protocol (07/05/21 05:36) Insulin Lispro (Humalog Insulin) (07/05/21 06:00) Insulin Lispro (Humalog Insulin) (07/05/21 05:40) D50w (Dextrose 50%) (07/05/21 05:40) Glucose (Glucose) (07/05/21 05:40) Glucagon (Glucagon) (07/05/21 05:40) Ed Insert Large Bore Iv X 2 (07/05/21 ) Vital Signs Orthostatic (07/05/21 05:36) Hemoglobin & Hematocrit (07/05/21 06:00) Hemoglobin & Hematocrit (07/05/21 12:00) Hemoglobin & Hematocrit (07/05/21 18:00) Vitamin B12 Level (07/05/21 05:36) Folate (07/05/21 05:36) Iron (Fe) (07/05/21 05:36) Ferritin (07/05/21 05:36) Total Iron Binding Capacit (07/05/21 05:36) Admission / Observation Status (07/05/21 05:36) Telemetry 48 Hr Order (07/05/21 05:36) Admission / Observation Status (07/05/21 05:55) Gastroenterology Consult (07/05/21 06:45) Transfuse Packed Cells (07/05/21 07:01) Packed Cells (07/05/21 07:01) Home Med List Complete! (Home Med List C (07/05/21 07:10) Metoprolol Tartrate (Lopressor) (07/05/21 09:00) Simvastatin (Zocor) (07/05/21 21:00) Tamsulosin Hcl (Flomax) (07/05/21 21:00) Code Status (07/05/21 07:18) Vital Signs Standard Of Care (07/05/21 07:18) Assisted Ambulation Only (07/05/21 07:18) Fall Risk Precautions (07/05/21 07:18) Oxygen Therapy Orders (07/05/21 07:18) Complete Comphrensive Metaboli (07/05/21 07:18) Complete Blood Count (07/05/21 07:18) Magnesium Level (07/05/21 07:18) Acetaminophen Tab (Tylenol Tab) (07/05/21 07:20) Milk Of Magnesia (Milk Of Magnesia) (07/05/21 07:20) Aluminum/Magnesium/Simeth (Mylanta) (07/05/21 07:20) Teds And Sequentials TEDS PER POLICY (07/05/21 07:18) Vs Q15m Icu/Pcu,Q30m M/S Hd (07/05/21 08:13) Hemodialysis Acute Orders (07/05/21 08:13) Heparin (Heparin) (07/05/21 08:15) Lidocaine 1% Sdv (Lidocaine 1% Sdv) (07/05/21 08:15) Nephrology Consult (07/05/21 08:56) Fingerstick Blood Sugar (07/05/21 12:46) Pantoprazole Sodium (Protonix) (07/05/21 21:00) Full Liquids Diet (07/05/21 Dinner) Complete Blood Count (07/06/21 00:00) Complete Blood Count (07/06/21 06:00) Complete Blood Count (07/06/21 12:00) Complete Blood Count (07/06/21 18:00) Complete Blood Count (07/07/21 00:00) Complete Blood Count (07/07/21 06:00) Complete Blood Count (07/07/21 12:00) Complete Blood Count (07/07/21 18:00) Basic Metabolic Profile (07/06/21 06:00) Basic Metabolic Profile (07/07/21 06:00) Basic Metabolic Profile (07/08/21 06:00) Basic Metabolic Profile (07/09/21:00) Basic Metabolic Profile (07/10/21 06:00) Basic Metabolic Profile (07/11/21:00) Basic Metabolic Profile (07/12/21 06:00) Magnesium Level (07/06/21 06:00) Magnesium Level (07/07/21 06:00) Magnesium Level (07/08/21 06:00) Magnesium Level (07/09/21 06:00) Magnesium Level (07/10/21:00) Magnesium Level (07/11/21 06:00) Magnesium Level (07/12/21 06:00) Plan Text 1. End-stage renal disease: Patient was dialyzed yesterday. Next HD will be done tomorrow. 2. Anemia secondary to renal failure and active bleed:s/p 2U PRBC transfusion,denies any active bleed today. 3. Non-insulin dependent diabetic: Continue insulin sliding scale. 4. Hypertension: Continue current dose of Metoprolol. Blood pressure is controlled. KLEBER HARDIN MD Jul 06, 2021 23:16
[2021-07-07] VITALS (11 sets, daily range): BP systolic 91–152; BP diastolic 42–65
[2021-07-07 00:15] LABS: HEMATOCRIT 26.3 % (42.0-52.0); HEMOGLOBIN 8.5 g/dl (13.5-17.5); MEAN CORPUSCULAR HEMOGLOBIN 31.4 pg (27.0-33.0); MEAN CORPUSCULAR HGB CONC 32.3 g/dl (32.0-36.5); PLATELET COUNT, AUTOMATED 134 10^3/uL (150-450); RED BLOOD COUNT 2.71 10^6/uL (4.30-6.10); WHITE BLOOD COUNT 7.1 10^3/uL (4.0-10.0)
[2021-07-07 06:35] LABS: HEMATOCRIT 24.4 % (42.0-52.0); HEMOGLOBIN 7.9 g/dl (13.5-17.5); MEAN CORPUSCULAR HGB CONC 32.4 g/dl (32.0-36.5); MEAN CORPUSCULAR VOLUME 95.7 fl (80.0-96.0); PLATELET COUNT, AUTOMATED 116 10^3/uL (150-450); RED BLOOD COUNT 2.55 10^6/uL (4.30-6.10)
[2021-07-07 06:53] LABS: CALCIUM LEVEL 8.1 MG/DL (8.5-10.1); CREATININE FOR GFR 9.13 MG/DL (0.70-1.30); GLOMERULAR FILTRATION RATE 6.4 (>56); MAGNESIUM LEVEL 1.8 MG/DL (1.8-2.4); POTASSIUM SERUM 4.7 MEQ/L (3.5-5.1)
[2021-07-07] MEDS: METOPROLOL TART 25 MG TABLET PO SCH ×2 (07:59→21:00)
[2021-07-07] MEDS: PANTOPRAZOLE 40MG VIAL (C9113 PER 1) IV SCH ×2 (08:06→21:24)
[2021-07-07] MEDS ORDERED: PREPARATION H OINTMENT (HEMORRHOID) PR PRN (08:20)
[2021-07-07] MEDS ORDERED: DARBEPOETIN 100 MCG/0.5 ML *DIALYSIS* SYRINGE (J0882) IV SCH (09:25)
--- NOTE | 2021-07-07 14:20 | IPN ---
INPATIENT PROGRESS NOTE DATE: 07/07/2021 SUBJECTIVE: Mr. Qureshi is seen and examined in the Hemodialysis Unit receiving his maintenance treatment. He is receiving heparin free dialysis. One unit of blood is being transfused with his hemodialysis today. He has no complaints. Dialysis has been uneventful. Hemoglobin is still downtrending. He reports he is still having some ongoing red blood per rectum. PHYSICAL EXAMINATION: Vital signs: Temperature 97, pulse 74, respiratory rate 20, blood pressure 137/65, saturating 99% on room air. Intake yesterday was 1.5 liters. Dialysis today removed 2 liters. Weight on the bed scale today is 106 kg. General: Patient is seen receiving his hemodialysis, awake, alert, oriented and in no distress. His left arm AV fistula is in use. HEENT: Tongue is moist. Neck: Jugular veins are not elevated. Heart sounds: Regular. Lungs: Clear breath sounds bilaterally anterior auscultation only. Abdomen: Soft, obese and nontender. Extremities: He has congenital limb deformities. His fistula is patent and in use. Skin: Warm and dry. Neurologic: He is oriented times 3 and at his baseline mentation. Psychiatric: Appropriate mood and affect. LABORATORY DATA: Sodium 134, potassium 4.7, bicarbonate 26, BUN 37, magnesium 1.8. Iron 62, transferrin saturation 22%. Hemoglobin 7.9, platelets 116. INPATIENT MEDICATIONS: Reviewed by myself and no changes noted over the past 24 hours. PROBLEMS/PLAN: 1. End-stage renal disease: Patient's usual outpatient schedule is Friday, Friday, Friday. He is off of his outpatient schedule. While he is in the hospital he is being dialyzed on a Friday, , Friday schedule. He is dialyzed today with 2 liters of fluid removed. It was a heparin free dialysis in view of rectal bleed. His next dialysis will be on Friday to get him back to his outpatient schedule. One unit of blood was transfused with dialysis today. 2. Anemia secondary to renal failure and active bleed: Patient received another unit of blood with dialysis today. That is a total of 3 units on this admission. He continues on Protonix and is receiving Aranesp with dialysis as well. 3. Hypertension: Blood pressures are acceptable on the current regimen (metoprolol). 4. Hyponatremia, hypervolemic: It is mild. It will improve with dialysis and fluid removal.
--- NOTE | 2021-07-07 14:20 | IPNPDOC ---
Text Note Date of Service The patient was seen on 07/07/21. NOTE Subjective: Patient is a 55-year-old male presented to hospital with bright red blood per rectum. Patient was given 2 units of blood and his hemoglobin recovered into the 9 range. Patient chronically ranges from 9-10. Patient's hemoglobin has been dropping this morning. Patient also had an episode of hypotension right before dialysis but was able to tolerate dialysis without any issues. Patient did not complain of any pain this morning was feeling otherwise well. Review of systems: General: Patient denies fevers HEENT: Patient denies headaches Cardiovascular: Patient denies chest pain Respiratory: Patient denies shortness of breath, cough GI: Patient denies abdominal pain, nausea, vomiting, diarrhea : Patient denies increased frequency or pain with urination Extremities: Patient denies swelling or pain in extremities Neurological: Patient denies numbness or tingling in legs Physical exam: Vitals: See below General: Alert and oriented male patient who was laying in bed when I walked in the room. Patient was able to sit up to start eating breakfast without any difficulty. Patient did not appear to be in any acute distress. HEENT: Normocephalic, atraumatic, moist mucous membranes. Neck: No lymphadenopathy or thyromegaly Cardiac: Regular rate and rhythm, no murmurs, normal S1, normal S2 Pulm: Clear to auscultation bilaterally. No wheezes, rhonchi, rales Abd: Nondistended, nontender to palpation, normal bowel sounds Ext: No edema bilateral lower extremities Labs: See below Imaging: No new imaging is been performed Assessment/plan: 55-year-old male patient with past medical history of ESRD on hemodialysis, [id number] diabetes, congenital deformities of his limbs, chronic degenerative arthritis/rheumatoid arthritis, hypertension, dyslipidemia presented the emergency department chief complaint of bloody stool per rectum. 1. Acute blood loss anemia secondary to lower GI bleed. Patient has been having bloody stools for the past 4 days. Patient's H&H initially dropped below 7 and he was transfused 2 units. Patient's hemoglobin was 7.9 this morning and the decision was made to transfuse a unit during dialysis. Patient is still having bleeding when he goes to the bathroom but he has brown stool with red blood around it. Patient states that is normal for quite some time. Hemorrhoidal ointment has been given. Gastroenterology saw the patient. I appreciate their help treating the patient. We will continue to monitor the patient's H&H. 2. End-stage renal disease. Nephrology dialyze the patient today and I a ppreciate Dr. Ferreira's help treating the patient. 3. History of diabetes. Patient blood sugar has been in the normal range. We will continue to monitor. No insulin given at this time. 4. Chronic anemia likely secondary to chronic renal disease. Baseline hemoglobin around 9-10. Continue trending H&H. 5. Hypertension. Hemodynamically stable. Holding Lopressor with hold parameters. 6. Hyperlipidemia. Continue home simvastatin. 7. BPH. Continue home Flomax DVT Prophylaxis: Teds and sequentials Disposition: Pending improvement and stabilization H&H VS,Fishbone, I+O VS, Mounikae, I+O Laboratory Tests 07/06/21 18:37 07/06/21 23:25 07/07/21 05:52 Vital Signs Date Time Temp Pulse Resp B/P (MAP) Pulse Ox O2 Delivery O2 Flow Rate FiO2 07/07/21 13:21 97.0 74 20 137/65 (89) 99 Room Air I&O- Last 24 Hours up to 6 AM 07/07/21 05:59 Intake Total 1500 ml Output Total 750 ml Balance 750 ml ANNE MARIE RUIZ DO Jul 07, 2021 14:20
[2021-07-07 15:06] LABS: HEMATOCRIT 29.5 % (42.0-52.0); HEMOGLOBIN 9.6 g/dl (13.5-17.5); MEAN CORPUSCULAR HEMOGLOBIN 31.1 pg (27.0-33.0); MEAN CORPUSCULAR HGB CONC 32.5 g/dl (32.0-36.5); MEAN CORPUSCULAR VOLUME 95.5 fl (80.0-96.0); PLATELET COUNT, AUTOMATED 110 10^3/uL (150-450); RED BLOOD COUNT 3.09 10^6/uL (4.30-6.10); WHITE BLOOD COUNT 5.8 10^3/uL (4.0-10.0)
[2021-07-07 20:48] LABS: HEMATOCRIT 27.3 % (42.0-52.0); HEMOGLOBIN 8.9 g/dl (13.5-17.5); MEAN CORPUSCULAR HGB CONC 32.6 g/dl (32.0-36.5); MEAN CORPUSCULAR VOLUME 95.1 fl (80.0-96.0); PLATELET COUNT, AUTOMATED 105 10^3/uL (150-450); RED BLOOD COUNT 2.87 10^6/uL (4.30-6.10); WHITE BLOOD COUNT 6.4 10^3/uL (4.0-10.0)
[2021-07-07] MEDS: TAMSULOSIN 0.4 MG CAP PO SCH (21:23)
[2021-07-07] MEDS: SIMVASTATIN 40 MG TAB PO SCH (21:25)
[2021-07-08] VITALS: BP 127/58
[2021-07-08 01:51] LABS: HEMOGLOBIN 8.7 g/dl (13.5-17.5); MEAN CORPUSCULAR HEMOGLOBIN 31.2 pg (27.0-33.0); MEAN CORPUSCULAR HGB CONC 32.2 g/dl (32.0-36.5); MEAN CORPUSCULAR VOLUME 96.8 fl (80.0-96.0); PLATELET COUNT, AUTOMATED 107 10^3/uL (150-450); RED BLOOD COUNT 2.79 10^6/uL (4.30-6.10)
[2021-07-08 04:00] VITALS: BP 116/58
[2021-07-08 05:21] LABS: CALCIUM LEVEL 8.2 MG/DL (8.5-10.1); CREATININE FOR GFR 5.89 MG/DL (0.70-1.30); GLOMERULAR FILTRATION RATE 10.6 (>56); MAGNESIUM LEVEL 1.7 MG/DL (1.8-2.4); POTASSIUM SERUM 4.5 MEQ/L (3.5-5.1)
[2021-07-08 07:13] VITALS: BP 125/50
[2021-07-08 08:24] LABS: HEMATOCRIT 28.3 % (42.0-52.0); HEMOGLOBIN 9.2 g/dl (13.5-17.5); MEAN CORPUSCULAR HEMOGLOBIN 31.4 pg (27.0-33.0); MEAN CORPUSCULAR HGB CONC 32.5 g/dl (32.0-36.5); MEAN CORPUSCULAR VOLUME 96.6 fl (80.0-96.0); PLATELET COUNT, AUTOMATED 111 10^3/uL (150-450); RED BLOOD COUNT 2.93 10^6/uL (4.30-6.10)
[2021-07-08] MEDS: METOPROLOL TART 25 MG TABLET PO SCH ×2 (09:00→21:00)
[2021-07-08] MEDS: PANTOPRAZOLE 40MG VIAL (C9113 PER 1) IV SCH ×2 (09:28→20:58)
--- NOTE | 2021-07-08 11:45 | IPNPDOC ---
Text Note Date of Service The patient was seen on 07/08/21. NOTE Subjective: Patient is a 55-year-old male presented to the hospital with bright red blood per rectum. Patient has received a total of 3 units of packed red blood cells. Patient's hemoglobin was 9.2 this morning. Patient is chronically between 9 and 10 degrees chronic end-stage renal disease. Patient says he is still having some bleeding when he has bowel movements. The bowel movements are brown with bright red blood around them. Patient states he also has some dripp ing. He says the hemorrhoidal ointment that was given has helped. Patient is otherwise feeling well. Review of systems: General: Patient denies fevers HEENT: Patient denies headaches Cardiovascular: Patient denies chest pain Respiratory: Patient denies shortness of breath, cough GI: Patient denies abdominal pain, nausea, vomiting, diarrhea : Patient denies increased frequency or pain with urination Extremities: Patient denies swelling or pain in extremities Neurological: Patient denies numbness or tingling in legs Physical exam: Vitals: See below General: Alert and oriented male patient who was laying in bed when I walked in. Patient did not appear to be in any acute distress. HEENT: Normocephalic, atraumatic, moist mucous membranes. Neck: No lymphadenopathy or thyromegaly Cardiac: Regular rate and rhythm, no murmurs, normal S1, normal S2 Pulm: Clear to auscultation bilaterally. No wheezes, rhonchi, rales Abd: Nondistended, nontender to palpation, normal bowel sounds Ext: No edema bilateral lower extremities Labs: See below Imaging: No new imaging has been performed Assessment/plan: 55-year-old male who presented with bright red blood per rectum who was found to have most likely hemorrhoidal bleeding. 1. Acute blood loss anemia secondary to lower GI bleed. Patient has had brown stool with blood in it for the past 5 days. Patient's H&H initially dropped below 7 and he was transfused 2 units. Patient's hemoglobin was 7.9 yesterday morning the decision was made to give an additional unit during dialysis. Patient still having some minimal to moderate bleeding. Hemorrhoidal ointment has been given. Discussed case gastroenterology who stated that the patient needs to be monitored as long as he is hemodynamically stable. Patient is hemodynamically stable at this time. If hemoglobin remained stable, patient can be discharged home. 2. End-stage renal disease. Patient was dialyzed yesterday and did well with this. I appreciate Dr. Ferreira's help treating the patient. 3. History of diabetes. Patient's blood sugar has been in the normal range. Continue to monitor. No insulin given at this time. 4. Chronic anemia likely secondary to end-stage renal disease. Baseline hemoglobin around 9-10. Continue trending H&H. 5. Hypertension. Hemodynamically stable at this time. Lopressor with hold parameters. 6. Hyperlipidemia. Continue home simvastatin. 7. BPH. Continue with Flomax. DVT Prophylaxis: Teds and sequentials Disposition: Pending improvement and stabilization of H&H. VS,Fishbone, I+O VS, Fishbone, I+O Laboratory Tests 07/07/21 14:42 07/07/21 20:27 07/08/21 01:31 07/08/21 04:20 07/08/21 08:11 Vital Signs Date Time Temp Pulse Resp B/P (MAP) Pulse Ox O2 Delivery O2 Flow Rate FiO2 07/08/21 09:00 69 108/57 07/08/21 07:13 97.5 18 96 Room Air I&O- Last 24 Hours up to 6 AM 07/08/21 06:00 Intake Total 2030 ml Output Total 2000 ml Balance 30 ml ANNE MARIE RUIZ DO Jul 08, 2021 11:45
[2021-07-08 12:00] VITALS: BP 135/61
[2021-07-08] MEDS: MIRALAX *UNIT DOSE* 17GM PACKET PO SCH (13:52)
[2021-07-08 15:04] LABS: HEMATOCRIT 31.2 % (42.0-52.0); HEMOGLOBIN 9.9 g/dl (13.5-17.5); MEAN CORPUSCULAR HEMOGLOBIN 31.1 pg (27.0-33.0); MEAN CORPUSCULAR HGB CONC 31.7 g/dl (32.0-36.5); MEAN CORPUSCULAR VOLUME 98.1 fl (80.0-96.0); PLATELET COUNT, AUTOMATED 117 10^3/uL (150-450); RED BLOOD COUNT 3.18 10^6/uL (4.30-6.10); WHITE BLOOD COUNT 7.1 10^3/uL (4.0-10.0)
--- NOTE | 2021-07-08 16:30 | IPN ---
NEPHROLOGY PROGRESS NOTE DATE: 07/08/2021 SUBJECTIVE: Adis is seen and examined this morning at the bedside. He reports no complaints. He states he is still having rectal bleed. He was dialyzed yesterday with Heparin free dialysis and 2 liters were removed. Dialysis was uneventful. OBJECTIVE: PHYSICAL EXAMINATION: VITAL SIGNS: Temperature 98.1, pulse 67, respiratory rate 17, blood pressure 135/61, saturating 98% on room air. INTAKE AND OUTPUT: Intake yesterday was 2 liters. Dialysis removed 2 liters. Weight in the bed scale today is 108 kg. GENERAL APPEARANCE: The patient is seen at the bedside, awake, alert, oriented x3, comfortable, in no distress. HEENT: The extraocular muscles are intact. Tongue is moist. NECK: Supple. HEART: Sounds are regular, S1, S2. No murmur. LUNGS: Clear to auscultation bilaterally. No crackles or rales. ABDOMEN: Soft and nontender. EXTREMITIES: No edema in the lower extremities. There is a fistula in the left arm which is patent. There are congenital limb deformities. NEUROLOGICAL: He is oriented x3, interactive and conversational, at baseline mentation. LABORATORY STUDIES: White count 6.0, hemoglobin 9.0, platelet count 111. Sodium 138, potassium 4.5, bicarbonate 27, BUN 18, creatinine 5.8. INPATIENT MEDICATIONS: The patient's medications were reviewed by myself and no changes noted with the exception that the patient was started on Miralax one packet p.o. daily. PROBLEMS: 1. End-stage renal disease on hemodialysis the patient's usual outpatient schedule is Friday, Friday, Friday. He was off his schedule while in the hospital. We dialyzed him on Friday (yesterday). Two liters of fluid were removed. It was Heparin free dialysis in view of his recent rectal bleed. I plan to dialyze him on July 09 to get him back to his outpatient schedule and we will continue Heparin free dialysis in view of the bleed and the patient will be transfused if hemoglobin is less than 8 tomorrow. 2. Anemia secondary to renal failure and active bleed - The patient received a total of 3 units of packed red blood cells on this admission. He continues on Aranesp with dialysis and Primary Team has discussed the case with Gastroenterology and the patient is on Protonix. 3. Hypertension - blood pressures are well controlled with Metoprolol alone.
[2021-07-08 19:22] VITALS: BP 116/66
[2021-07-08] MEDS: TAMSULOSIN 0.4 MG CAP PO SCH (20:58)
[2021-07-08] MEDS: SIMVASTATIN 40 MG TAB PO SCH (20:59)
[2021-07-08 21:48] LABS: HEMATOCRIT 26.5 % (42.0-52.0); HEMOGLOBIN 8.7 g/dl (13.5-17.5); MEAN CORPUSCULAR HEMOGLOBIN 31.6 pg (27.0-33.0); MEAN CORPUSCULAR HGB CONC 32.8 g/dl (32.0-36.5); MEAN CORPUSCULAR VOLUME 96.4 fl (80.0-96.0); PLATELET COUNT, AUTOMATED 107 10^3/uL (150-450); RED BLOOD COUNT 2.75 10^6/uL (4.30-6.10); WHITE BLOOD COUNT 6.2 10^3/uL (4.0-10.0)
[2021-07-09 02:36] LABS: HEMATOCRIT 26.3 % (42.0-52.0); HEMOGLOBIN 8.6 g/dl (13.5-17.5); MEAN CORPUSCULAR HEMOGLOBIN 31.5 pg (27.0-33.0); MEAN CORPUSCULAR HGB CONC 32.7 g/dl (32.0-36.5); MEAN CORPUSCULAR VOLUME 96.3 fl (80.0-96.0); PLATELET COUNT, AUTOMATED 103 10^3/uL (150-450); RED BLOOD COUNT 2.73 10^6/uL (4.30-6.10); WHITE BLOOD COUNT 6.5 10^3/uL (4.0-10.0)
[2021-07-09 06:00] VITALS: BP 120/60
[2021-07-09 06:13] VITALS: BP 120/60
[2021-07-09] MEDS: METOPROLOL TART 25 MG TABLET PO SCH (06:13)
[2021-07-09] MEDS: PANTOPRAZOLE 40MG VIAL (C9113 PER 1) IV SCH (06:13)
[2021-07-09 09:20] LABS: HEMATOCRIT 27.9 % (42.0-52.0); HEMOGLOBIN 9.1 g/dl (13.5-17.5); MEAN CORPUSCULAR HEMOGLOBIN 31.1 pg (27.0-33.0); MEAN CORPUSCULAR HGB CONC 32.6 g/dl (32.0-36.5); MEAN CORPUSCULAR VOLUME 95.2 fl (80.0-96.0); PLATELET COUNT, AUTOMATED 117 10^3/uL (150-450); RED BLOOD COUNT 2.93 10^6/uL (4.30-6.10); WHITE BLOOD COUNT 7.6 10^3/uL (4.0-10.0)
[2021-07-09 09:58] LABS: CALCIUM LEVEL 8.8 MG/DL (8.5-10.1); CREATININE FOR GFR 8.39 MG/DL (0.70-1.30); GLOMERULAR FILTRATION RATE 7.1 (>56); MAGNESIUM LEVEL 1.9 MG/DL (1.8-2.4); POTASSIUM SERUM 4.8 MEQ/L (3.5-5.1)
[2021-07-09] MEDS: MIRALAX *UNIT DOSE* 17GM PACKET PO SCH (11:00)
--- NOTE | 2021-07-09 11:26 | DS.PDOC ---
Discharge Summary General Date of Admission Jul 05, 2021 at 05:55 Date of Discharge 07/09/21 Primary Care Physician: Raji Gregg Attending Physician: ANNE MARIE RUIZ DO Specialist/Consultants Involve: JUAN LUIS JONES DO Discharge Summary PROCEDURES PERFORMED DURING STAY: None ADMITTING DIAGNOSES: 1. Acute blood loss anemia, secondary to lower GI bleed 2. ESRD on HD (MWF) DISCHARGE DIAGNOSES: 1. Acute blood loss anemia, secondary to lower GI bleed 2. ESRD on HD (MWF) COMPLICATIONS/CHIEF COMPLAINT: Lower Gi Bleed. HISTORY OF PRESENT ILLNESS: Adis is 55M with notable PMHx of ESRD on hemodialysis (MWF), NIDDMII, chronic degenerative arthritis/rheumatoid arthritis, congenital deformities of all 4 limbs, hypertension, and dyslipidemia who presented to the [facility] ED on 07/04/21 via EMS from the outpatient hemodialysis office complaining of recent bloody stools. Patient reports he has had one episode of bloody stools per day since (07/02). Describes the color of stool ranging between pink to dark red, and all been associated with bowel movements. Denies any pain associated with bowel movement/bloody stool, and also denies lightheadedness or dizziness. He presented for his regular scheduled Friday HD on 07/04, but reported his recent bloody stools to staff who recommended he be seen in the ED for evaluation. As a result, he did not undergo his regularly Friday scheduled HD session. Of note, patient did have a similar presentation in October 2020, for which she was admitted and underwent a colonoscopy with Dr. Mcgowan which showed moderate to large nonthrombosed prolapsed external and internal hemorrhoids and 2 small nonbleeding diverticula of the colon. Per documentation from Dr. Mcgowan, the bleeding at that time was thought to be secondary to both internal and external hemorrhoids with outpatient surgical referral should he have frequent rebleeding. In the ED, the patient was vitally stable. His initial hemoglobin was 7.4. A digital rectal exam was performed by the ED provider which showed some visible hemorrhoids but no signs of acute inflammation and there was no tenderness; patient was also quite obviously heme positive grossly. CT abdomen pelvis showed no bowel obstruction nor evidence of acute diverticulitis. There is also bilateral renal atrophy as well as cholelithiasis. Hospitalist service was subsequently consulted and the patient was admitted for further evaluation management of presumed lower GI bleed. HOSPITAL COURSE: Patient was admitted for suspected lower GI bleed. He was started on clear liquid diet and IV Protonix with daily labs and monitoring H&H Q6H. He was found to be hemodynamically stable throughout admission without active bleeding. Patient's baseline hemoglobin 9-10, secondary to anemia of chronic disease from renal failure. Initial hemoglobin upon presentation is 7.4. Patient's H&H dropped below 7 and patient consented to blood products prior to receiving 2 units PRBCs. Of note, patient's hemoglobin was 7.9 (07/06) and he was given 1 unit PRBCs during dialysis. Hospitalist team spoke with gastroenterology who stated that patient is most dynamically stable and recently had colonoscopy performed; recommended continue monitoring and follow-up with general surgery outpatient if continued bloody stools. Patient continued to receive HD MWF throughout admission and nephrology was consulted. Patient's type 2 diabetes and hypertension were well controlled throughout admission. Patient denied pain, changes in bowel movements throughout admission. DISCHARGE MEDICATIONS: Please see below. ALLERGIES: Please see below. PHYSICAL EXAMINATION ON DISCHARGE: VITAL SIGNS: Please see below. GENERAL: Alert, awake, sitting on edge of bed, NAD HEENT: NC/AT, EOMI, no scleral icterus, nares patent, moist mucous membrane NECK: supple, no lymphadenopathy CARDIOVASCULAR EXAMINATION: RRR, normal heart sounds, no MRG RESPIRATORY EXAMINATION: CTA bilaterally, no WRR, no accessory muscles used ABDOMINAL EXAMINATION: Soft, nontender, nondistended, normal bowel sounds, umbilical scar from prior surgery unchanged EXTREMITIES: Normal ROM, no significant edema SKIN: No new lesions, rashes, ulcers NEUROLOGICAL EXAMINATION: no FND PSYCHIATRIC EXAMINATION: AOx3, no depressed/anxious mood LABORATORY DATA: Please see below. IMAGING: CTA abd/pelvis (07/05) Cholelithiasis. No evidence of acute cholecystitis. Bilateral renal atrophy. No bowel obstruction. Normal appendix. PROGNOSIS: Good ACTIVITY: As tolerated DIET: Consistent carb DISCHARGE PLAN: 1. Sx Hemorrhoids- Continue hemorrhoidal ointment for hemorrhoids F/u General surgery for hemorrhoids if continued rectal bleeding 2. ESRD- Continue HD MWF, nephrology recommendations F/u Nephro per schedule DISPOSITION: Home DISCHARGE INSTRUCTIONS: 1. F/u PCP, 7-10days ITEMS TO FOLLOWUP ON ON OUTPATIENT: 1. PCP- recurring sx hemorrhoids, chronic RA management DISCHARGE CONDITION: Stable TIME SPENT ON DISCHARGE: 30 minutes. Vital Signs/I&Os Vital Signs Date Time Temp Pulse Resp B/P (MAP) Pulse Ox O2 Delivery O2 Flow Rate FiO2 07/09/21 06:13 73 120/60 07/09/21 06:00 97.9 18 97 Room Air I&O- Last 24 Hours up to 6 AM 07/09/21 06:00 Intake Total 1320 ml Output Total 0 ml Balance 1320 ml Laboratory Data Labs 24H Laboratory Tests 2 07/08/21 14:29: Nucleated Red Blood Cells % (auto) 0.0 07/08/21 21:22: Nucleated Red Blood Cells % (auto) 0.0 07/09/21 02:13: Nucleated Red Blood Cells % (auto) 0.0 07/09/21 09:05: Nucleated Red Blood Cells % (auto) 0.0, Anion Gap 11, Glomerular Filtration Rate 7.1L, Calcium Level 8.8, Magnesium Level 1.9 CBC/BMP Laboratory Tests 07/08/21 14:29 07/08/21 21:22 07/09/21 02:13 07/09/21 09:05 Discharge Medications Scheduled Folic Acid/Vit B Complex and C (Brittany-Madelyn Tablet) 0.8 Mg Tablet, 0.8 MG PO QHS, (Reported) Lidocaine/Prilocaine (Lidocaine-Prilocaine Cream) 2.5%/2.5% Cream..g., 1 APLCT TOP HD, (Reported) USE ON DIALYSIS PORT FRI/FRI/FRI Metoprolol Tartrate (Metoprolol Tartrate) 25 Mg Tablet, 25 MG PO BID, (Reported) Simvastatin (Zocor) 80 Mg Tablet, 80 MG PO QHS, (Reported) Tamsulosin HCl (Flomax) 0.4 Mg Capsule, 0.4 MG PO QHS, (Reported) Scheduled PRN Docusate Sodium (Dok) 100 Mg Capsule, 100 MG PO BID PRN for CONSTIPATION, (Reported) Allergies Coded Allergies: No Known Allergies (Unverified , 10/23/20) Kathy Lepe DO Jul 09, 2021 11:26
--- NOTE | 2021-07-09 17:00 | IPN ---
NEPHROLOGY PROGRESS NOTE DATE: 07/09/2021 SUBJECTIVE: Adis is seen and examined this morning at the bedside. He is discharge pending. He is due for dialysis this afternoon. His hemoglobin has remained stable over the weekend; hemoglobin was 9.1 on the latest labs and his last transfusion was on Friday. PHYSICAL EXAMINATION: Vital signs: Temperature 97.9, pulse 73, respiratory rate 18, blood pressure 120/60, saturating 97% on room air. Intake yesterday was 1240. Weight on the bed scale today was 109.5 kg. General: Patient was seen sitting on the sofa, an obese male awake, alert and oriented, comfortable, in no distress. HEENT: Tongue is moist. Glasses are in place. Neck: Supple. Heart sounds: Regular S1 and S2, no murmur. Lungs: Clear to auscultation bilaterally, no crackles or rales. Abdomen: Soft and nontender; there are bowel sounds. Extremities: There is no edema in the lower extremities. There is a fistula in the left arm which is patent. There are congenital limb deformities. Neurologic: He is oriented times 3, interactive, conversational, at baseline mentation. Skin: Warm and dry. LABORATORY DATA: White count 7.6, hemoglobin 9.1, platelets 117. Sodium 136, potassium 4.8, bicarbonate 23, BUN 31, magnesium 1.9. INPATIENT MEDICATIONS: Reviewed by myself and no changes are noted over the past day. PROBLEMS/PLAN: 1. End-stage renal disease: On hemodialysis on a Friday, Friday, Friday schedule. Patient is due for dialysis this afternoon. He will have his dialysis done in the outpatient unit at his usual chair time. I have asked the dialysis charge nurse to cut down his heparin with dialysis in view of recent rectal bleed and he will have hemoglobin checked once weekly through the Hemodialysis Unit. 2. Anemia secondary to renal failure and recent GI bleed: The patient received a total of 3 units of packed red blood cells on this admission. The most recent transfusion was on Friday. Since then his hemoglobin has been stable and is 9.1 this morning. He continues on Aranesp with dialysis. He has known hemorrhoids and will need to follow up as an outpatient with general surgery for his hemorrhoidal bleeding. He is on Protonix as well. 3. Hypertension: Blood pressures are acceptable on metoprolol. 4. Disposition: Patient is stable for discharge from a nephrology point of view to follow up in the outpatient dialysis unit this afternoon at his usual chair time.
== END 2021-07-09 14:37 | disposition home or self-care (01) | DRG 377 ==
LOC: M ED 15:13 → M ED INP 07-05 05:55 → ENRESERV 07-05 10:53 → M PCU 07-05 12:20 → M MSPAV 07-08 23:16
PROVIDERS: ADMIT Internal Medicine; ATTEND Family Medicine
PROC: 5A1D70Z Performance of Urinary Filtration, Intermittent, Less than 6 Hours Per Day (ICD-10-PCS; principal; 2021-07-05)
PROC: 30233N1 Transfusion of Nonautologous Red Blood Cells into Peripheral Vein, Percutaneous Approach (ICD-10-PCS; 2021-07-05)
DX: K92.2 Gastrointestinal hemorrhage, unspecified (principal); N18.6 End stage renal disease; D62 Acute posthemorrhagic anemia; I12.0 Hypertensive chronic kidney disease with stage 5 chronic kidney disease or end stage renal disease; E87.1 Hypo-osmolality and hyponatremia; Z99.2 Dependence on renal dialysis; E11.22 Type 2 diabetes mellitus with diabetic chronic kidney disease; M06.9 Rheumatoid arthritis, unspecified; E78.5 Hyperlipidemia, unspecified; D63.1 Anemia in chronic kidney disease; Z98.41 Cataract extraction status, right eye; Z98.42 Cataract extraction status, left eye; Z96.0 Presence of urogenital implants; N40.0 Benign prostatic hyperplasia without lower urinary tract symptoms; Z20.822 Contact with and (suspected) exposure to COVID-19; Z79.899 Other long term (current) drug therapy

== ENCOUNTER 2021-08-07 18:07 | Emergency (ER) | payer MEDICARE, MEDICAID ==
[~2021-08-07] VITALS: Ht 152.4 cm; Wt 240.0 kg
[~2021-08-07 18:07] MED LIST changes: +TAMS1CAP17
[2021-08-07 19:05] LABS: BASO % 0.8 % (0.0-1.0); HEMATOCRIT 26.8 % (42.0-52.0); HEMOGLOBIN 8.2 g/dl (13.5-17.5); LYMPH # 1.3 10^3/uL (1.5-5.0); MEAN CORPUSCULAR HEMOGLOBIN 30.9 pg (27.0-33.0); MEAN CORPUSCULAR HGB CONC 30.6 g/dl (32.0-36.5); MEAN CORPUSCULAR VOLUME 101.1 fl (80.0-96.0); MONO # 1.3 10^3/uL (0.0-0.8); MONO % 14.3 % (2.0-8.0); NEUTROPHILS % 65.9 % (36.0-66.0); PLATELET COUNT, AUTOMATED 162 10^3/uL (150-450); RED BLOOD COUNT 2.65 10^6/uL (4.30-6.10); WHITE BLOOD COUNT 9.1 10^3/uL (4.0-10.0)
[2021-08-07 19:06] LABS: BASO # 0.1 10^3/uL (0.0-0.2); EOS # 0.4 10^3/uL (0.0-0.5)
[2021-08-07 19:29] LABS: CALCIUM LEVEL 9.5 MG/DL (8.5-10.1); CREATININE FOR GFR 7.31 MG/DL (0.70-1.30); GLOMERULAR FILTRATION RATE 8.3 (>56); POTASSIUM SERUM 4.5 MEQ/L (3.5-5.1)
--- OUTSIDE RECORDS SUMMARY | 2021-08-07 20:05 | CCD ---
Author Author [facility] Organization [facility] Address Unknown Phone Unavailable Care Team Providers Care Layout Worker Name Role Phone BRYDEN, A STANLEY DO [...] Unavailable BRYDEN, A STANLEY DO Unavailable Unavailable MIKALA, Nicholas ANGEL DO Unavailable Unavailable MIKALA, Nicholas ANGEL DO Unavailable Unavailable Re-disclosure Warning The records [...] is protected by Article 27-F of the [facility] Public Health law. If you continue you may have access to information: Regarding HIV / AIDS; Provided by facilities licensed or operated by the [facility] Office of Mental Health; or Provided by the [facility] Office for People With Developmental Disabilities. If such information is present, then the following [facility] mandated warning applies: This information has [...] law may result in a fine or detention sentence or both. A general authorization for [...] Marshall/René/Severino/Grabiel ndray 11/02/2020 02:00:00 PM EST [facility] ([facility], ) Medications Medication Brand Name Start Date Product Form Dose Route Admi nistrative Instructions Pharmacy Instructions Status Indications Reaction Description Data Source(s) Ascorbic Acid 60 MG / Calcium Pantothena te 10 MG / D-BIOTIN 0.3 MG / Folic Acid 0.8 MG / Niacinamide 20 MG / pyridoxine 10 MG / Riboflavin 1.7 MG / Thiamine 1.5 MG / Vitamin B 12 0.006 MG Oral Tablet [Brittany-Madelyn] FOLIC ACID/VIT B COMPLEX AND C 07/23/2021 12:00:00 AM EDT tablet 30 TAKE ONE TABLET BY MOUTH EVERY DAY TAKE ONE TABLET BY MOUTH EVERY DAY SOLD: 07/25/2021 [facility] 25 mg 04/25/2021 12:00:00 AM [...] TABLET BY MOUTH TWICE A DAY SOLD: 07/25/2021 [facility] 25 mg 04/25/2021 12:00:00 AM [...] EVERY DAY AT BEDTIME SOLD: [facility] 0.4 mg 09/06/2020 12:00:00 AM EST capsule 30 TAKE ONE CAPSULE BY MOUTH EVERY DAY AT BEDTIME TAKE ONE CAPSULE BY MOUTH EVERY DAY AT BEDTIME SOLD: [facility] 0.4 mg 09/06/2020 12:00:00 AM EST capsule 30 TAKE ONE CAPSULE BY MOUTH EVERY DAY AT BEDTIME TAKE ONE CAPSULE BY MOUTH EVERY DAY AT BEDTIME SOLD: [facility] 0.4 mg 09/06/2020 12:00:00 AM [...] TWICE A DAY SOLD: 08/11/2020 [facility] 80 mg 03/13/2020 12:00:00 AM [...] MOUTH EVERY DAY SOLD: 06/12/2020 [facility] Insurance Providers Payer name Policy type / Coverage type Policy ID Covered democrat ID Covered democrat's relationship to marina Policy [place] Plan Information MEDICARE 4 [id number] A MEDICARE [id number] SP [id number] A Medicare [place] Primary [id number] Self [id number] MEDICARE A [id number] Self [id number] A MEDICARE [id number] SP [id number] E50 MEDICAID M [id number] Self [id number] OTHER B [place] [id number] SP [id number] Q MEDICAID [id number] SP [id number] [place] [id number] SP [id number] MEDICAID [id number] SP [id number] [place] 3 [id number] 1 [id number] Q SELF PAY 2 UNAVAILABLE 1 UNAVAILA BLE MEDICAID - O/P EMERGENCY ROOM [id number] 18 [id number] MEDICARE C [id number] S [id number] E50 MEDICAID M [id number] S [id number] MEDICAID - O/P EMERGENCY ROOM [id number] 18 [id number] MEDICARE PART A-O/P [id number] 18 [id number] MEDICARE C [id number] S [id number] A Medicaid [place] Medig[place] Part B [id number] Self [id number] Medicare Dme Supplies Medigap Part B [id number] Self [id number] MEDICAID-O/P [id number] 18 [id number] MEDICARE -O/P [id number] 18 [id number] Problems, Conditions, and Diagnoses No Information Surgeries/Procedures No Information Results ID Date Data Source [id number] 07/05/2021 05:52:00 AM EDT [facility] Name Value Range Interpretation Code Description Data Lulu rce(s) Supporting Document(s) SARS coronavirus 2 RNA [Presence] in Res piratory specimen by ANEESH with probe detection NEGATIVE [facility] This lab was ordered by [facility] a nd reported by [facility]. ID Date Data Source [id number] 10/23/2020 06:36:00 PM EST [facility] Name Value Range Interpretation Code Description Data Lulu rce(s) Supporting Document(s) SARS coronavirus 2 RNA [Presence] in Res piratory specimen by ANEESH with probe detection NEGATIVE [facility] This lab was ordered by [facility] a nd reported by [facility]. Procedure Social History No Information Vital Signs ID Date Data Source UNK Name Value Range Interpretation Code Description Data Source(s) Systolic blood pressure 129 mm[Hg] 129 mm[Hg] [facility] ([facility], ) Diastolic blood pressure 78 mm[Hg] 78 mm[Hg] [facility] ([facility]) Body height 61 [in_i] 61 [in_i] [facility] 5'1" Body weight 232.00 [lb_av] 232.00 [lb_av] [facility] ([facility]) Body mass index (BMI) [Ratio] 43.8 kg/m2 43.8 k g/m2 [facility] ([facility]) [place] body weight 112 [lb_av] 112 [lb_av] [facility] ([facility]) Body weight 105.235 kg 105.235 kg [facility] ([facility]) Body surface area Derived from formula 2.01 m2 2.01 m2 [facility] ([facility]) Systolic blood pressure 112 mm[Hg] 112 mm[Hg] [facility] ([facility]) Diastolic blood pressure 72 mm[Hg] 72 mm[Hg] [facility] ([facility]) Body height 61 [in_i] 61 [in_i] [facility] ([facility]) 5'1" Body weight 233.00 [lb_av] 233.00 [lb_av] [facility] ([facility]) Stated per pt. Body mass index (BMI) [Ratio] 44.0 kg/m2 44.0 k g/m2 [facility] ([facility]) [place] body weight 112 [lb_av] 112 [lb_av] [facility] Body weight 105.689 kg 105.689 kg [facility] ([facility]) Body surface area Derived from formula 2.02 m2 2.02 m2 [facility] ([facility])
[2021-08-07 21:19] VITALS: BP 111/62
== END 2021-08-07 21:30 | disposition home or self-care (01) ==
LOC: M ED 18:07 → EDBD 18:07 → M ED 21:30
DX: K62.5 Hemorrhage of anus and rectum (principal); E11.9 Type 2 diabetes mellitus without complications; I12.0 Hypertensive chronic kidney disease with stage 5 chronic kidney disease or end stage renal disease; N18.6 End stage renal disease; E78.9 Disorder of lipoprotein metabolism, unspecified; M06.9 Rheumatoid arthritis, unspecified; Z99.2 Dependence on renal dialysis; Z79.899 Other long term (current) drug therapy

== ENCOUNTER 2021-08-23 18:34 | Emergency (ER) | payer MEDICARE, MEDICAID ==
[~2021-08-23] VITALS: Ht 157.5 cm; Wt 110.0 kg
[2021-08-23 19:43] LABS: BASO # 0.1 10^3/uL (0.0-0.2); BASO % 0.5 % (0.0-1.0); EOS # 0.3 10^3/uL (0.0-0.5); EOS % 2.1 % (0.0-3.0); HEMATOCRIT 24.5 % (42.0-52.0); HEMOGLOBIN 7.3 g/dl (13.5-17.5); LYMPH # 1.3 10^3/uL (1.5-5.0); LYMPH % 10.1 % (24.0-44.0); MEAN CORPUSCULAR HEMOGLOBIN 31.2 pg (27.0-33.0); MEAN CORPUSCULAR HGB CONC 29.8 g/dl (32.0-36.5); MEAN CORPUSCULAR VOLUME 104.7 fl (80.0-96.0); MONO # 1.4 10^3/uL (0.0-0.8); MONO % 10.6 % (2.0-8.0); NEUTROPHILS # 9.7 10^3/uL (1.5-8.5); NEUTROPHILS % 75.6 % (36.0-66.0); PLATELET COUNT, AUTOMATED 182 10^3/uL (150-450); RED BLOOD COUNT 2.34 10^6/uL (4.30-6.10); WHITE BLOOD COUNT 12.8 10^3/uL (4.0-10.0)
[2021-08-23 19:55] LABS: INR 1.05; PROTHROMBIN TIME 14.1 SECONDS (12.7-14.5)
[2021-08-23 19:56] LABS: PARTIAL THROMBOPLASTIN TIME 30.5 SECONDS (25.9-37.0)
[2021-08-23 20:12] LABS: BILIRUBIN,DIRECT 0.1 MG/DL (0.0-0.2); BILIRUBIN,TOTAL 0.3 MG/DL (0.2-1.0); CREATININE FOR GFR 6.2 MG/DL (0.70-1.30); TOTAL PROTEIN 6.5 GM/DL (6.4-8.2)
--- OUTSIDE RECORDS SUMMARY | 2021-08-23 20:46 | CCD ---
Author Author [facility] Organization [facility] Address Unknown Phone Unavailable Care Team Providers Care Applications Development Analyst Name Role Phone BRYDEN, A STANLEY DO [...] is protected by Article 27-F of the [facility] Public Health law. If you continue you may have access to information: Regarding HIV / AIDS; Provided by facilities licensed or operated by the [facility] Office of Mental Health; or Provided by the [facility] Office for People With Developmental Disabilities. If such information is present, then the following [facility] mandated warning applies: This information has been [...] law may result in a fine or assisted sentence or both. A general authorization for the release of medical or other information is NOT sufficient authorization for further disc losure. Family History Family Member Name Family Member Gender Family Member Status Date o f Status Description Data Source(s) Unknown Male Problem [facility] ([facility] ) Encounters Encounter Providers Location Date Indications Data Source(s ) Outpatient Attender: STANLEY Marsahll/René/Severino/Grabiel ndray 11/02/2020 02:00:00 PM EST [facility] ([facility], ) Medications Medication Brand [...] TWICE A DAY SOLD: 06/25/2021 [facility] 25 mg 04/25/2021 12:00:00 AM EDT tablet 60 TAKE ONE TABLET BY MOUTH TWICE A DAY TAKE ONE TABLET BY MOUTH TWICE A DAY SOLD: 05/27/2021 [facility] 0.4 mg 03/26/2021 12:00:00 AM [...] BEDTIME SOLD: 021 [facility] 80 mg 03/26/2021 12:00:00 AM [...] TWICE A DAY SOLD: 03/28/2021 [facility] 25 mg 10/04/2020 12:00:00 AM EST tablet 60 TAKE ONE TABLET BY MOUTH TWICE A DAY TAKE ONE TABLET BY MOUTH TWICE A DAY SOLD: 11/05/2020 [facility] 25 mg 10/04/2020 12:00:00 AM EST tablet 60 TAKE ONE TABLET BY MOUTH TWICE A DAY TAKE ONE TABLET BY MOUTH TWICE A DAY SOLD: 02/27/2021 [facility] 0.4 mg 09/06/2020 12:00:00 AM EST capsule 30 TAKE ONE CAPSULE BY MOUTH EVERY DAY AT BEDTIME TAKE ONE CAPSULE BY MOUTH EVERY DAY AT BEDTIME SOLD: 020 [facility] 80 mg 09/06/2020 12:00:00 AM [...] MOUTH EVERY DAY SOLD: 10/06/2020 [facility] 0.8 mg 07/09/2020 12:00:00 AM EDT tablet 30 TAKE ONE TABLET BY MOUTH EVERY DAY TAKE ONE TABLET BY MOUTH EVERY DAY SOLD: 12/28/2020 [facility] 0.8 mg 07/09/2020 12:00:00 AM EDT tablet 30 TAKE ONE TABLET BY MOUTH EVERY DAY TAKE ONE TABLET BY MOUTH EVERY DAY SOLD: 11/05/2020 [facility] 25 mg 04/10/2020 12:00:00 AM [...] TWICE A DAY SOLD: 09/08/2020 [facility] 80 mg 03/13/2020 12:00:00 AM [...] BY MOUTH EVERY DAY AT BEDTIME SOLD: [facility] 0.4 mg 03/13/2020 12:00:00 AM EDT capsule 30 TAKE ONE CAPSULE BY MOUTH EVERY DAY AT BEDTIME TAKE ONE CAPSULE BY MOUTH EVERY DAY AT BEDTIME SOLD: [facility] Insurance Providers Payer name Policy type / Coverage type Policy ID Covered alliance party ID Covered alliance party's relationship to marina Policy [place] Plan Information MEDICARE 4 [id number] 1 [id number] A MEDICARE [id number] SP [id number] A [place] Primary [id number] Self [id number] MEDICARE A [id number] Self [id number] A MEDICARE [id number] SP [id number] E50 MEDICAID M [id number] Self [id number] OTHER B [place]ANSPL[place] Self [place]ANS[place]AN [place] MED[place] [id number] SP [id number] Q MEDICAID [id number] SP [id number] [place] [id number] SP [id number] MEDICAID [id number] SP [id number] [place] 3 [id number] Q SELF PAY 2 UNAVAILABLE 1 UNAVAILA BLE MEDICAID - O/P EMERGENCY ROOM [id number] 18 [id number] MEDICARE C [id number] S [id number] E50 MEDICAID M [id number] S [id number] MEDICAID - O/P EMERGENCY ROOM [id number] 18 [id number] MEDICARE PART A-O/P [id number] 18 [id number] MEDICARE C [id number] S [id number] A Medicaid [place] Medig[place] Part B [id number] Self [id number] Medicare Dme Supplies Medigap Part B [id number] Self [id number] MEDICAID-O/P [id number] 18 [id number] Q MEDICARE -O/P [id number] 18 [id number] Problems, Conditions, and Diagnoses No Information Surgeries/Procedures No Information Results ID Date Data Source [id number] 07/05/2021 05:52:00 AM EDT [facility] Name Value Range Interpretation Code Description Data Lulu rce(s) Supporting Document(s) SARS coronavirus 2 RNA [Presence] in Res piratory specimen by ANEEHS with probe detection NEGATIVE [facility] This lab was ordered by [facility] a nd reported by [facility]. ID Date Data Source [id number] 10/23/2020 06:36:00 PM EST [facility] Name Value Range Interpretation Code Description Data Lulu rce(s) Supporting Document(s) SARS coronavirus 2 RNA [Presence] in Res piratory specimen by ANEESH with probe detection NEGATIVE [facility] This lab was ordered by [facility] a nd reported by [facility]. Procedure Social History No Information Vital Signs ID Date Data Source UNK Name Value Range Interpretation Code Description Data Source(s) Systolic blood pressure 129 mm[Hg] 129 mm[Hg] [facility] ([facility]) Diastolic blood pressure 78 mm[Hg] 78 mm[Hg] [facility] ([facility]) Body height 61 [in_i] 61 [in_i] [facility] ([facility]) 5'1" Body weight 232.00 [lb_av] 232.00 [lb_av] [facility] ([facility]) Body mass index (BMI) [Ratio] 43.8 kg/m2 43.8 k g/m2 [facility]) [place] body weight 112 [lb_av] 112 [lb_av] [facility] Body weight 105.235 kg 105.235 kg [facility] ([facility]) Body surface area Derived from formula 2.01 m2 2.01 m2 [facility] ([facility]) Systolic blood pressure 112 mm[Hg] 112 mm[Hg] M [facility] ([facility]) Diastolic blood pressure 72 mm[Hg] 72 mm[Hg] [facility] ([facility]) Body height 61 [in_i] 61 [in_i] [facility] ([facility]) 5'1" Body weight 233.00 [lb_av] 233.00 [lb_av] [facility] Stated per pt. Body mass index (BMI) [Ratio] 44.0 kg/m2 44.0 k g/m2 [facility] ([facility]) [place] body weight 112 [lb_av] 112 [lb_av] [facility] Body weight 105.689 kg 105.689 kg [facility] ([facility]) Body surface area Derived from formula 2.02 m2 2.02 m2 [facility] ([facility])
[2021-08-23 21:14] LABS: RSV AMPLIFICATION NEGATIVE (NEGATIVE)
[2021-08-23 22:30] VITALS: BP 104/58
[2021-08-23 22:45] VITALS: BP 119/59
[2021-08-23 23:45] VITALS: BP 115/65
[2021-08-24 00:45] VITALS: BP 120/68
[2021-08-24 03:35] VITALS: BP 114/65
[2021-08-24 03:50] VITALS: BP 125/77
[2021-08-24 04:50] VITALS: BP 124/60
[2021-08-24 05:45] VITALS: BP 115/78
[2021-08-24] MEDS ORDERED: EMLA CREAM 5GM TUBE (LIDOCAINE/PRILOCAINE) TOP ONE (13:15)
[2021-08-24 13:45] VITALS: BP 120/56
== END 2021-08-24 15:14 | disposition home or self-care (01) ==
LOC: EDBD 18:34 → M ED 18:34
DX: K64.8 Other hemorrhoids (principal); I12.0 Hypertensive chronic kidney disease with stage 5 chronic kidney disease or end stage renal disease; Z99.2 Dependence on renal dialysis; E11.9 Type 2 diabetes mellitus without complications; E78.5 Hyperlipidemia, unspecified; N40.0 Benign prostatic hyperplasia without lower urinary tract symptoms; Z87.442 Personal history of urinary calculi; Z79.899 Other long term (current) drug therapy
CPT/HCPCS: 36415; 36430; 80048; 80076; 83605; 83690; 85025; 85610; 85730; 86850; 86900; 86901; 86920; 87631; 93041; 99285; P9016

== ENCOUNTER 2021-10-24 10:59 | Inpatient (IN) | payer MEDICARE, MEDICAID ==
[2021-10-24] VITALS (9 sets, daily range): BP systolic 98–132; BP diastolic 48–79
[2021-10-24 11:46] LABS: BASO # 0.1 10^3/uL (0.0-0.2); BASO % 0.6 % (0.0-1.0); EOS # 0.2 10^3/uL (0.0-0.5); EOS % 2.9 % (0.0-3.0); LYMPH # 1.4 10^3/uL (1.5-5.0); LYMPH % 16.8 % (24.0-44.0); MEAN CORPUSCULAR HEMOGLOBIN 29.2 pg (27.0-33.0); MEAN CORPUSCULAR HGB CONC 31.3 g/dl (32.0-36.5); MEAN CORPUSCULAR VOLUME 93.3 fl (80.0-96.0); MONO % 11.4 % (2.0-8.0); NEUTROPHILS # 5.7 10^3/uL (1.5-8.5); NEUTROPHILS % 67.7 % (36.0-66.0); PLATELET COUNT, AUTOMATED 128 10^3/uL (150-450); RED BLOOD COUNT 2.09 10^6/uL (4.30-6.10); WHITE BLOOD COUNT 8.4 10^3/uL (4.0-10.0)
[2021-10-24 11:47] LABS: HEMATOCRIT 19.5 % (42.0-52.0); HEMOGLOBIN 6.1 g/dl (13.5-17.5)
[2021-10-24 11:55] LABS: INR 1.02; PROTHROMBIN TIME 13.8 SECONDS (12.7-14.5)
[2021-10-24 12:21] LABS: ALBUMIN 3.2 GM/DL (3.2-5.2); BILIRUBIN,TOTAL 0.3 MG/DL (0.2-1.0); CALCIUM LEVEL 8.8 MG/DL (8.5-10.1); CREATININE FOR GFR 8.63 MG/DL (0.70-1.30); GLOMERULAR FILTRATION RATE 6.8 (>56); POTASSIUM SERUM 5.2 MEQ/L (3.5-5.1); TOTAL PROTEIN 6.3 GM/DL (6.4-8.2)
[2021-10-24] MEDS ORDERED: HOME MED LIST COMPLETE! XX SCH (13:00)
[2021-10-24] MEDS ORDERED: ACETAMINOPHEN TAB 650MG DOSE (2X325MG) PO PRN (13:25)
[2021-10-24] MEDS ORDERED: DOCUSATE SODIUM 100MG CAPSULE PO PRN (13:25)
[2021-10-24 14:21] LABS: RSV AMPLIFICATION NEGATIVE (NEGATIVE)
[2021-10-24] MEDS ORDERED: LIDOCAINE 1% SDV 5ML VIAL SC PRN (14:40)
[2021-10-24] MEDS ORDERED: SODIUM CHLORIDE 0.9% 1000ML IV PRN (14:40)
[2021-10-24] MEDS: SIMVASTATIN 40 MG TAB PO SCH (20:43)
[2021-10-24] MEDS: TAMSULOSIN 0.4 MG CAP PO SCH (20:43)
[2021-10-24] MEDS: METOPROLOL TART 25 MG TABLET PO SCH (20:44)
[2021-10-24] MEDS: FOLIC ACID 1 MG TAB PO SCH (20:44)
[2021-10-25] VITALS (8 sets, daily range): BP systolic 111–124; BP diastolic 48–68
[2021-10-25 06:38] LABS: HEMATOCRIT 22.9 % (42.0-52.0); HEMOGLOBIN 7.2 g/dl (13.5-17.5); MEAN CORPUSCULAR HGB CONC 31.4 g/dl (32.0-36.5); MEAN CORPUSCULAR VOLUME 92.3 fl (80.0-96.0); PLATELET COUNT, AUTOMATED 108 10^3/uL (150-450); RED BLOOD COUNT 2.48 10^6/uL (4.30-6.10); WHITE BLOOD COUNT 6.4 10^3/uL (4.0-10.0)
[2021-10-25 06:58] LABS: CALCIUM LEVEL 8.5 MG/DL (8.5-10.1); CREATININE FOR GFR 5.91 MG/DL (0.70-1.30); GLOMERULAR FILTRATION RATE 10.6 (>56); POTASSIUM SERUM 4.8 MEQ/L (3.5-5.1)
[2021-10-25] MEDS: METOPROLOL TART 25 MG TABLET PO SCH ×2 (09:13→19:57)
[2021-10-25 11:17] LABS: HEMATOCRIT 23.8 % (42.0-52.0); HEMOGLOBIN 7.7 g/dl (13.5-17.5)
[2021-10-25 15:18] LABS: MAGNESIUM LEVEL 1.9 MG/DL (1.7-2.2)
[2021-10-25] MEDS: FOLIC ACID 1 MG TAB PO SCH (19:55)
[2021-10-25] MEDS: TAMSULOSIN 0.4 MG CAP PO SCH (19:56)
[2021-10-25] MEDS: SIMVASTATIN 40 MG TAB PO SCH (19:56)
[2021-10-26] VITALS (8 sets, daily range): BP systolic 116–131; BP diastolic 62–89
[2021-10-26] MEDS ORDERED: LIDOCAINE 1% SDV 5ML VIAL SC PRN (07:35)
[2021-10-26] MEDS ORDERED: SODIUM CHLORIDE 0.9% 1000ML IV PRN (07:35)
[2021-10-26] MEDS: METOPROLOL TART 25 MG TABLET PO SCH ×2 (09:00→20:09)
[2021-10-26 12:41] LABS: HEMATOCRIT 25.2 % (42.0-52.0); MEAN CORPUSCULAR HGB CONC 31.7 g/dl (32.0-36.5); MEAN CORPUSCULAR VOLUME 91.3 fl (80.0-96.0); PLATELET COUNT, AUTOMATED 103 10^3/uL (150-450); RED BLOOD COUNT 2.76 10^6/uL (4.30-6.10); WHITE BLOOD COUNT 6.3 10^3/uL (4.0-10.0)
[2021-10-26 13:20] LABS: ALBUMIN 3.1 GM/DL (3.2-5.2); CALCIUM LEVEL 8.2 MG/DL (8.5-10.1); CALCIUM LEVEL 8.5 MG/DL (8.5-10.1); CREATININE FOR GFR 8.88 MG/DL (0.70-1.30); CREATININE FOR GFR 8.98 MG/DL (0.70-1.30); GLOMERULAR FILTRATION RATE 6.5 (>56); GLOMERULAR FILTRATION RATE 6.6 (>56); PHOSPHORUS LEVEL 4.8 MG/DL (2.5-4.9); POTASSIUM SERUM 4.8 MEQ/L (3.5-5.1); POTASSIUM SERUM 4.9 MEQ/L (3.5-5.1)
[2021-10-26] MEDS: FOLIC ACID 1 MG TAB PO SCH (20:08)
[2021-10-26] MEDS: TAMSULOSIN 0.4 MG CAP PO SCH (20:08)
[2021-10-26] MEDS: SIMVASTATIN 40 MG TAB PO SCH (20:09)
[2021-10-27 05:53] VITALS: BP 115/71
[2021-10-27 09:08] VITALS: BP 128/53
[2021-10-27] MEDS: METOPROLOL TART 25 MG TABLET PO SCH (09:08)
[2021-10-27 10:24] LABS: HEMATOCRIT 30.9 % (42.0-52.0); HEMOGLOBIN 9.8 g/dl (13.5-17.5); MEAN CORPUSCULAR HEMOGLOBIN 29.4 pg (27.0-33.0); MEAN CORPUSCULAR HGB CONC 31.7 g/dl (32.0-36.5); MEAN CORPUSCULAR VOLUME 92.8 fl (80.0-96.0); PLATELET COUNT, AUTOMATED 111 10^3/uL (150-450); RED BLOOD COUNT 3.33 10^6/uL (4.30-6.10); WHITE BLOOD COUNT 6.2 10^3/uL (4.0-10.0)
[2021-10-27 10:48] LABS: CALCIUM LEVEL 8.6 MG/DL (8.5-10.1); CREATININE FOR GFR 6.55 MG/DL (0.70-1.30); GLOMERULAR FILTRATION RATE 9.4 (>56); POTASSIUM SERUM 4.7 MEQ/L (3.5-5.1)
== END 2021-10-27 12:23 | disposition home or self-care (01) | DRG 393 ==
LOC: M ED 10:59 → M ED INP 13:24 → ENRESERV 16:28 → M MSPAV 19:20
PROVIDERS: ADMIT Internal Medicine; ATTEND Internal Medicine
PROC: 30233N1 Transfusion of Nonautologous Red Blood Cells into Peripheral Vein, Percutaneous Approach (ICD-10-PCS; principal; 2021-10-24)
PROC: 5A1D70Z Performance of Urinary Filtration, Intermittent, Less than 6 Hours Per Day (ICD-10-PCS; 2021-10-24)
DX: K64.9 Unspecified hemorrhoids (principal); N18.6 End stage renal disease; D62 Acute posthemorrhagic anemia; I12.0 Hypertensive chronic kidney disease with stage 5 chronic kidney disease or end stage renal disease; Z99.2 Dependence on renal dialysis; E11.22 Type 2 diabetes mellitus with diabetic chronic kidney disease; M06.9 Rheumatoid arthritis, unspecified; E78.5 Hyperlipidemia, unspecified; N40.0 Benign prostatic hyperplasia without lower urinary tract symptoms; Z20.822 Contact with and (suspected) exposure to COVID-19; Z79.899 Other long term (current) drug therapy; E87.5 Hyperkalemia

== ENCOUNTER 2022-11-04 16:38 | Emergency (ER) | payer MEDICARE, MEDICAID ==
[~2022-11-04] VITALS: Ht 154.9 cm; Wt 108.2 kg
[2022-11-04 17:30] LABS: BASO % 0.4 % (0.0-1.0); EOS # 0.4 10^3/uL (0.0-0.5); EOS % 4.4 % (0.0-3.0); HEMATOCRIT 29.2 % (42.0-52.0); HEMOGLOBIN 9.1 g/dl (13.5-17.5); LYMPH # 1.5 10^3/uL (1.5-5.0); LYMPH % 14.9 % (24.0-44.0); MEAN CORPUSCULAR HEMOGLOBIN 29.3 pg (27.0-33.0); MEAN CORPUSCULAR HGB CONC 31.2 g/dl (32.0-36.5); MEAN CORPUSCULAR VOLUME 93.9 fl (80.0-96.0); NEUTROPHILS # 6.8 10^3/uL (1.5-8.5); NEUTROPHILS % 69.7 % (36.0-66.0); PLATELET COUNT, AUTOMATED 131 10^3/uL (150-450); RED BLOOD COUNT 3.11 10^6/uL (4.30-6.10); WHITE BLOOD COUNT 9.8 10^3/uL (4.0-10.0)
[2022-11-04 17:51] LABS: CALCIUM LEVEL 9.3 MG/DL (8.5-10.1); CREATININE FOR GFR 10.58 MG/DL (0.70-1.30); GLOMERULAR FILTRATION RATE 5.4 (>56); POTASSIUM SERUM 6.2 MMOL/L (3.5-5.1)
[2022-11-04] MEDS ORDERED: CALCIUM CHLORIDE 10% 1 GM/10 ML SYR IV ONE (18:40)
[2022-11-04] MEDS ORDERED: DEXTROSE 50% 50ML SYRINGE IV ONE (18:40)
[2022-11-04] MEDS ORDERED: HumuLIN R (REGULAR) INSULIN (NovoLIN R) **100U/ML** PER UNIT IV ONE (18:40)
[2022-11-04] MEDS ORDERED: PATIROMER SORBITEX CALCIUM 8.4 GM POWDER PACKET (VELTASSA) PO ONE (18:40)
[2022-11-04 20:02] LABS: HEMATOCRIT 27.9 % (42.0-52.0); HEMOGLOBIN 8.8 g/dl (13.5-17.5); MEAN CORPUSCULAR HEMOGLOBIN 29.7 pg (27.0-33.0); MEAN CORPUSCULAR HGB CONC 31.5 g/dl (32.0-36.5); MEAN CORPUSCULAR VOLUME 94.3 fl (80.0-96.0); PLATELET COUNT, AUTOMATED 132 10^3/uL (150-450); RED BLOOD COUNT 2.96 10^6/uL (4.30-6.10); WHITE BLOOD COUNT 9.9 10^3/uL (4.0-10.0)
[2022-11-04 21:28] LABS: HEMOGLOBIN 8.5 g/dl (13.5-17.5); MEAN CORPUSCULAR HEMOGLOBIN 29.7 pg (27.0-33.0); MEAN CORPUSCULAR HGB CONC 31.5 g/dl (32.0-36.5); MEAN CORPUSCULAR VOLUME 94.4 fl (80.0-96.0); PLATELET COUNT, AUTOMATED 121 10^3/uL (150-450); RED BLOOD COUNT 2.86 10^6/uL (4.30-6.10); WHITE BLOOD COUNT 9.5 10^3/uL (4.0-10.0)
[2022-11-04 21:57] LABS: CALCIUM LEVEL 9.6 MG/DL (8.5-10.1); CREATININE FOR GFR 10.98 MG/DL (0.70-1.30); GLOMERULAR FILTRATION RATE 5.1 (>56)
[2022-11-04 22:49] VITALS: BP 119/60
== END 2022-11-04 22:51 | disposition home or self-care (01) ==
LOC: M ED 16:38 → EDBD 16:38 → M ED 22:51
DX: K52.9 Noninfective gastroenteritis and colitis, unspecified (principal); K64.9 Unspecified hemorrhoids; N18.6 End stage renal disease; E11.9 Type 2 diabetes mellitus without complications; I10 Essential (primary) hypertension; Z79.811 Long term (current) use of aromatase inhibitors; Z79.899 Other long term (current) drug therapy
CPT/HCPCS: 80048; 85025; 85027; 86850; 86900; 86901; 93005; 93041; 94760; 96374; 96375; 99285; J1815

== ENCOUNTER 2025-06-28 15:13 | Inpatient (IN) | payer MEDICARE, MEDICAID ==
[~2025-06-28] VITALS: Ht 167.6 cm; Wt 111.3 kg
[2025-06-28] VITALS (8 sets, daily range): BP systolic 89–112; BP diastolic 50–57; TEMP 97.9–98.5; O2SAT 96–99
[~2025-06-28 15:13] MED LIST changes: -FLOM0.4C39 PO; -LIDO1CRE42 TOP; +LIDO30CR18 TOP; +TAMS-18 PO
[2025-06-28 15:56] LABS: BASO # 0.1 10^3/uL (0.0-0.2); BASO % 0.6 % (0.0-1.0); EOS # 0.2 10^3/uL (0.0-0.5); EOS % 2.0 % (0.0-3.0); LYMPH # 1.0 10^3/uL (1.5-5.0); LYMPH % 12.3 % (24.0-44.0); MONO # 0.8 10^3/uL (0.0-0.8); MONO % 10.0 % (2.0-8.0); NEUTROPHILS # 5.9 10^3/uL (1.5-8.5); NEUTROPHILS % 74.2 % (36.0-66.0); PLATELET COUNT, AUTOMATED 179 10^3/uL (150-450)
[2025-06-28 16:04] LABS: INR 1.03
[2025-06-28 16:18] LABS: CALCIUM LEVEL 8.5 MG/DL (8.3-10.6); CARBON DIOXIDE LEVEL 34.0 MMOL/L (20-31); CHLORIDE LEVEL 95.0 MMOL/L (98-107); CREATININE FOR GFR 6.13 MG/DL (0.70-1.30); GLOMERULAR FILTRATION RATE 9.8 (>49); POTASSIUM SERUM 3.5 MMOL/L (3.5-5.1); SODIUM LEVEL 141.0 MMOL/L (136-145)
[2025-06-28] MEDS ORDERED: GLUCOSE 4 GM CHEW PO PRN (19:25)
[2025-06-28] MEDS ORDERED: DEXTROSE 50% 50 ML SYRINGE IV PRN (19:25)
[2025-06-28] MEDS ORDERED: GLUCAGON INJ 1 MG VIAL SC PRN (19:25)
[2025-06-28] MEDS ORDERED: HOME MED LIST COMPLETE! XX SCH (20:05)
[2025-06-28] MEDS: INSULIN LISPRO (NovoLOG) PER UNIT SC SCH (21:59)
[2025-06-28 22:21] LABS: BASO # 0.1 10^3/uL (0.0-0.2); BASO % 0.6 % (0.0-1.0); EOS # 0.3 10^3/uL (0.0-0.5); EOS % 3.1 % (0.0-3.0); LYMPH # 1.9 10^3/uL (1.5-5.0); LYMPH % 20.1 % (24.0-44.0); MONO # 1.2 10^3/uL (0.0-0.8); MONO % 13.1 % (2.0-8.0); NEUTROPHILS # 5.9 10^3/uL (1.5-8.5); NEUTROPHILS % 62.3 % (36.0-66.0); PLATELET COUNT, AUTOMATED 178 10^3/uL (150-450)
[2025-06-28] MEDS: PANTOPRAZOLE 40MG VIAL IV SCH (23:53)
[2025-06-29 03:45] VITALS: BP 104/54; TEMP 98.1; O2SAT 96
[2025-06-29 04:59] LABS: BASO # 0.1 10^3/uL (0.0-0.2); BASO % 0.8 % (0.0-1.0); EOS # 0.4 10^3/uL (0.0-0.5); EOS % 4.9 % (0.0-3.0); LYMPH # 1.7 10^3/uL (1.5-5.0); LYMPH % 19.2 % (24.0-44.0); MONO # 1.1 10^3/uL (0.0-0.8); MONO % 11.8 % (2.0-8.0); NEUTROPHILS # 5.6 10^3/uL (1.5-8.5); NEUTROPHILS % 62.7 % (36.0-66.0); PLATELET COUNT, AUTOMATED 157 10^3/uL (150-450)
[2025-06-29 05:22] LABS: ALT/SGPT 17.0 U/L (7.0-40); AST/SGOT 30.0 U/L (<34); CALCIUM LEVEL 8.2 MG/DL (8.3-10.6); CARBON DIOXIDE LEVEL 31.0 MMOL/L (20-31); CHLORIDE LEVEL 98.0 MMOL/L (98-107); CREATININE FOR GFR 7.05 MG/DL (0.70-1.30); GLOMERULAR FILTRATION RATE 8.3 (>49); MAGNESIUM LEVEL 1.8 MG/DL (1.8-2.4); POTASSIUM SERUM 3.8 MMOL/L (3.5-5.1); SODIUM LEVEL 140.0 MMOL/L (136-145)
[2025-06-29] MEDS: INSULIN LISPRO (NovoLOG) PER UNIT SC SCH (07:30)
[2025-06-29] MEDS ORDERED: HEPARIN 1,000 UNITS/ML 10 ML VIAL (FOR RADIOLOGY & DIALYSIS ONLY) XX SCH (10:10)
[2025-06-29] MEDS ORDERED: SODIUM CHLORIDE 0.9% 1000 ML IV PRN (10:10)
[2025-06-29] MEDS ORDERED: HEPARIN 1,000 UNITS/ML 10 ML VIAL (FOR RADIOLOGY & DIALYSIS ONLY) IV PRN (10:10)
[2025-06-29] MEDS ORDERED: LIDOCAINE 1% SDV 5 ML VIAL SC PRN (10:10)
[2025-06-29] MEDS: DARBEPOETIN 100 MCG/0.5 ML *DIALYSIS* SYRINGE IV SCH (13:50)
[2025-06-29 17:00] VITALS: BP 109/69; TEMP 98.2; O2SAT 96
[2025-06-29] MEDS: SIMVASTATIN 40 MG TAB PO SCH (20:46)
[2025-06-29 22:00] VITALS: BP 108/65; TEMP 98.1; O2SAT 96
[2025-06-30 04:00] VITALS: BP 95/62; TEMP 97.9; O2SAT 98
[2025-06-30 06:44] LABS: PLATELET COUNT, AUTOMATED 155 10^3/uL (150-450)
[2025-06-30 07:08] LABS: CALCIUM LEVEL 8.8 MG/DL (8.3-10.6); CARBON DIOXIDE LEVEL 30.0 MMOL/L (20-31); CHLORIDE LEVEL 101.0 MMOL/L (98-107); CREATININE FOR GFR 5.47 MG/DL (0.70-1.30); GLOMERULAR FILTRATION RATE 11.2 (>49); POTASSIUM SERUM 4.1 MMOL/L (3.5-5.1); SODIUM LEVEL 140.0 MMOL/L (136-145)
[2025-06-30 08:17] VITALS: BP 117/44; TEMP 97.8; O2SAT 92
[2025-06-30] MEDS ORDERED: METO25TA4 PO (09:34)
[2025-06-30 11:42] VITALS: BP 108/47; TEMP 97.9; O2SAT 96
[2025-06-30 11:43] VITALS: BP 108/47; TEMP 97.9; O2SAT 96
[2025-06-30] MEDS ORDERED: PILL CUTTER 1 EACH XX ONE (12:21)
== END 2025-06-30 14:02 | disposition home or self-care (01) | DRG 811 ==
LOC: M ED 15:13 → EDBD 15:13 → M ED INP 19:25 → M MSPAV 23:33
PROVIDERS: ADMIT Student in an Organized Health Care Education/Training Program; ATTEND Student in an Organized Health Care Education/Training Program
PROC: 30233N1 Transfusion of Nonautologous Red Blood Cells into Peripheral Vein, Percutaneous Approach (ICD-10-PCS; principal; 2025-06-28)
DX: D62 Acute posthemorrhagic anemia (principal); N18.6 End stage renal disease; E87.20 Acidosis, unspecified; I12.0 Hypertensive chronic kidney disease with stage 5 chronic kidney disease or end stage renal disease; D63.1 Anemia in chronic kidney disease; E11.22 Type 2 diabetes mellitus with diabetic chronic kidney disease; K64.8 Other hemorrhoids; M06.9 Rheumatoid arthritis, unspecified; E78.5 Hyperlipidemia, unspecified; N40.0 Benign prostatic hyperplasia without lower urinary tract symptoms; Q66.92 Congenital deformity of feet, unspecified, left foot; I95.9 Hypotension, unspecified; Q66.91 Congenital deformity of feet, unspecified, right foot; E66.9 Obesity, unspecified; Z99.2 Dependence on renal dialysis; Z68.38 Body mass index [BMI] 38.0-38.9, adult; Z79.899 Other long term (current) drug therapy